=== PATIENT | female | born 2000 | race Caucasian/White ===

== ENCOUNTER 2021-08-28 15:14 | Emergency (ER) | payer BC, SELFPAY ==
--- NOTE | ~2021-08-28 | US_ITS ---
EXAMINATION: US ABDOMEN LIMITED, graded compression right lower quadrant CLINICAL INFORMATION: Right upper quadrant tenderness. COMPARISON: None TECHNIQUE: Real-time imaging of the right upper quadrant abdominal viscera. FINDINGS: Region of the pancreas is unremarkable. The liver is felt to be within normal limits. Gallbladder showing no evidence for stone or edema. Common duct is 4 mm within normal limits. The right kidney is 11.4 cm. No hydronephrosis. No stone. Graded compression of the right lower quadrant demonstrates no free fluid. No finding to suggest a normal or abnormal appendix. US/US abdomen limited IMPRESSION: Unremarkable upper abdominal ultrasound. Graded compression of the right lower quadrant does not show a suspicious finding.
--- NOTE | ~2021-08-28 | US_ITS ---
EXAMINATION: US ABDOMEN LIMITED CLINICAL INFORMATION: Right lower quadrant/periumbilical pain. COMPARISON: Abdominal ultrasound from the same day. TECHNIQUE: Imaging of the abdomen was performed with a high-frequency linear transducer using graded compression. FINDINGS: The appendix is not demonstrated due to overlying gas and stool. No inflammatory changes are identified in the right lower quadrant. There is no free fluid. Bowel peristalsis is identified. Right ovary is not seen. US/US appendix IMPRESSION: Evaluation of the appendix is non-diagnostic due to overlying gas and stool. No inflammatory changes identified in the right lower quadrant.
[2021-08-28 15:44] VITALS: BP 160/102; PULSE 117; RESP 20; TEMP 36.8; O2SAT 99; BMI 21.9
[2021-08-28 16:00] LABS: MANUAL DIFF FLAG NO
[2021-08-28 16:03] LABS: Basophils Percent Auto 0.3 % (0-2); Eosinophils Percent Auto 0.3 % (0-4); Hematocrit 40.3 % (37.0-47.0); Hemoglobin 13.5 g/dl (12.0-16.0); Imm Gran Abs Auto 0.01 X10*3/uL (0.00-0.03); Imm Gran Pct Auto 0.2 % (0.0-0.4); Lymphocytes Absolute Auto 1.8 X10*3/uL (1.2-4.9); Mean Corpuscular HGB Conc 33.5 g/dl (31.0-35.0); Mean Corpuscular Hemoglobin 30.4 pg (27.0-33.0); Mean Corpuscular Volume 90.8 fL (80.0-98.0); Mean Platelet Volume 9.9 fL (9.4-12.3); Monocytes Absolute Auto 0.5 X10*3/uL (0.1-1.2); Monocytes Percent Auto 7.6 % (2-11); Neutrophils Absolute Auto 3.6 x10*3/uL (2.0-8.3); Neutrophils Percent Auto 60.6 % (45-73); Platelet Count 197 X10*3/uL (160-400); Red Blood Count 4.44 X10*6/uL (4.20-5.50); Red Cell Distribution Width 12.2 % (11.0-16.0); White Blood Count 5.9 X10*3/uL (4.8-10.8)
[2021-08-28 16:16] LABS: Anion Gap 12 (12-20); Blood Urea Nitrogen 15 mg/dL (9-16); Calcium 9.6 mg/dL (8.4-10.2); Carbon Dioxide 25 mmol/L (22-29); Chloride 106 mmol/L (96-108); Creatinine Clr Calc Pharmacy 85.7; Estimated Glomerular Filt Rate > 60; Glucose Random 90 mg/dL (60-115); Potassium 3.8 mmol/L (3.3-5.1); Sodium 139 mmol/L (135-145)
[2021-08-28 19:20] LABS: Lipase 34 U/L (8-78)
--- NOTE | 2021-08-28 20:16 | ED_ITS ---
HPI - Abdominal Pain General Chief Complaint: Abdominal Pain Stated Complaint: abd pain Time Seen by Provider: 08/28/21 20:15 Source: patient Mode of arrival: ambulatory Limitations: no limitations History of Present Illness HPI narrative: 21 yo female with history of cystic fibrosis presents to the ER with acute onset of sharp, right lower and periumbical abdominal pain that woke her out of sleep at 4am today. She felt feverish at the time. Over time the pain improved but never completely subsided. Pain is now 4/10 and dull in the RUQ. No nausea, vomiting or diarrhea. Last BM today and was normal. LMP was last week and heavy, normal for her. MD elicited complaint: abdominal pain Pertinent past history: none Onset (ago): hour(s) Pain Consistency: constant Location: RLQ Severity: moderate Quality: sharp Migration to: periumbilical and RUQ Exacerbating factors: nothing Relieving factors: nothing Related Data Allergies Allergy/AdvReac Type Severity Reaction Status Date / Time amoxicillin Allergy Unknown stomach Verified 03/21/19 00:00 ache Review of Systems Review of Systems Constitutional: No Fever, No Chills ENT/Mouth: No sore throat, No Rhinorrhea, No Swallowing Difficulty Cardiovascular: No Chest Pain, No SOB Respiratory: No Cough, No Sputum, No Wheezing, No dyspnea Gastrointestinal: No Nausea, No Vomiting, No Diarrhea, + abdominal Pain, No Hematochezia, No Melena Genitourinary: No Dysuria, No Urinary Frequency, No Hematuria Musculoskeletal: No joint pain, No Myalgias Skin: No Skin Lesions, No rash Neuro: No Weakness, No Numbness, No Dizziness, No Headache Psych: + Anxiety/Panic, No Depression Heme/Lymph: No Bruising, No Lymphadenopathy PMFSH Social History Social History Advance Directives: No Advance Directives Information Provided: Yes Physical Exam ED Vital Signs: Vital Signs - 24 hr 08/28/21 15:44 08/28/21 20:20 08/28/21 22:28 Temperature 98.2 F 98.3 F 98.1 F Pulse Rate 117 H 118 H 82 Respiratory Rate 20 20 15 Blood Pressure 160/102 H 141/83 H 140/93 H Pulse Oximetry 99 100 98 BMI result Body Mass Index 21.9 Appearance: Alert. Oriented X3. No acute distress. Eyes: Pupils equal, round and reactive to light. ENT: Pharynx normal. Neck: Normal inspection. Neck supple. CVS: Normal heart rate and rhythm. Pulses normal. Respiratory: No respiratory distress. Breath sounds normal. Abdomen: Flat, Soft but guarded in the RUQ, no RLQ tenderness or rebound. normal +BS x4 Skin: Skin warm and dry. Normal skin color. Normal skin turgor. No rashes. Extremities: No lower extremity edema. Neuro: Oriented X 3. No motor deficit. No sensory deficit. Course Course Course Narrative: 21 yo female with history of CF presenting to the ER with right sided abdominal pain - started in the RLQ and periumbiliucal area and is now RUQ. No N/V/D. No history of pancreatic insufficiency, not on Creon. Will add LFTs and check ultrasounds of the RUQ and appendix. She has no leukocytosis which is reassuring against appendicitis. Reevaluation(s) Reevaluation #1: LFTs are normal. Ultrasounds of the right upper quadrant and appendix are unremarkable. She still has some mild discomfort in the right upper quadrant, but it is mild and tolerable. She is tolerating p.o.. She is reassured with her normal workup today. Vital signs are now normal. She is stable for discharge home with plan to follow-up with her doctor his needed. She will return to the ER if symptoms worsen. MDM - Abdominal Pain Lab Data Result diagrams: 08/28/21 15:57 08/28/21 15:57 Labs: Lab Results 08/28/21 08/28/21 08/28/21 Range/Units 15:57 15:57 21:16 WBC 5.9 (4.8-10.8) X10*3/uL RBC 4.44 (4.20-5.50) X10*6/uL Hgb 13.5 (12.0-16.0) g/dl Hct 40.3 (37.0-47.0) % MCV 90.8 (80.0-98.0) fL MCH 30.4 (27.0-33.0) pg MCHC 33.5 (31.0-35.0) g/dl RDW 12.2 (11.0-16.0) % Plt Count 197 (160-400) X10*3/uL MPV 9.9 (9.4-12.3) fL Immature Gran % (Auto) 0.2 (0.0-0.4) % Neut % (Auto) 60.6 (45-73) % Lymph % (Auto) 31.0 (20-40) % Angelina % (Auto) 7.6 (2-11) % Eos % (Auto) 0.3 (0-4) % Baso % (Auto) 0.3 (0-2) % Lymph # (Auto) 1.8 (1.2-4.9) X10*3/uL Angelina # (Auto) 0.5 (0.1-1.2) X10*3/uL Eos # (Auto) 0.0 (0.0-0.4) X10*3/uL Baso # (Auto) 0.0 (0.0-0.2) X10*3/uL Abs Immat Gran (auto) 0.01 (0.00-0.03) X10*3/uL Absolute Neuts (auto) 3.6 (2.0-8.3) x10*3/uL Absolute Nucleated RBC 0.000 (0.0-0.012) X10*3/uL Nucleated RBC % (auto) 0.0 (0.0-0.2) /100WBC Sodium 139 (135-145) mmol/L Potassium 3.8 (3.3-5.1) mmol/L Chloride 106 (96-108) mmol/L Carbon Dioxide 25 (22-29) mmol/L Anion Gap 12 (12-20) BUN 15 (9-16) mg/dL Creatinine 1.01 (0.5-1.4) mg/dL Estim Creat Clear Calc 85.7 Estimated GFR > 60 Random Glucose 90 (60-115) mg/dL Calcium 9.6 (8.4-10.2) mg/dL Total Bilirubin 0.7 (0.0-1.0) mg/dL Direct Bilirubin 0.3 (0.0-0.5) mg/dL AST 16 (5-31) U/L ALT 14 (0-31) U/L Alkaline Phosphatase 48 (39-117) U/L Total Protein 7.6 (6.5-8.0) g/dL Albumin 4.7 (3.5-5.0) g/dL Lipase 34 (8-78) U/L Beta HCG, Quant < 2 mIU/mL Urine Color DK YELLOW Urine Appearance CLEAR Urine pH 6.0 (5.0-8.0) Ur Specific [place] 1.025 (1.005-1.025) Urine Protein NEG (NEG-TRACE) MG/DL Urine Glucose (UA) NEG (NEG) MG/DL Urine Ketones 40 (NEG) MG/DL Urine Blood NEG (NEG) Urine Nitrite NEG (NEG) Ur Leukocyte Esterase NEG (NEG) Urine Test (NEGATIVE) 08/28/21 Range/Units 21:16 WBC (4.8-10.8) X10*3/uL RBC (4.20-5.50) X10*6/uL Hgb (12.0-16.0) g/dl Hct (37.0-47.0) % MCV (80.0-98.0) fL MCH (27.0-33.0) pg MCHC (31.0-35.0) g/dl RDW (11.0-16.0) % Plt Count (160-400) X10*3/uL MPV (9.4-12.3) fL Immature Gran % (Auto) (0.0-0.4) % Neut % (Auto) (45-73) % Lymph % (Auto) (20-40) % Angelina % (Auto) (2-11) % Eos % (Auto) (0-4) % Baso % (Auto) (0-2) % Lymph # (Auto) (1.2-4.9) X10*3/uL Angelina # (Auto) (0.1-1.2) X10*3/uL Eos # (Auto) (0.0-0.4) X10*3/uL Baso # (Auto) (0.0-0.2) X10*3/uL Abs Immat Gran (auto) (0.00-0.03) X10*3/uL Absolute Neuts (auto) (2.0-8.3) x10*3/uL Absolute Nucleated RBC (0.0-0.012) X10*3/uL Nucleated RBC % (auto) (0.0-0.2) /100WBC Sodium (135-145) mmol/L Potassium (3.3-5.1) mmol/L Chloride (96-108) mmol/L Carbon Dioxide (22-29) mmol/L Anion Gap (12-20) BUN (9-16) mg/dL Creatinine (0.5-1.4) mg/dL Estim Creat Clear Calc Estimated GFR Random Glucose (60-115) mg/dL Calcium (8.4-10.2) mg/dL Total Bilirubin (0.0-1.0) mg/dL Direct Bilirubin (0.0-0.5) mg/dL AST (5-31) U/L ALT (0-31) U/L Alkaline Phosphatase (39-117) U/L Total Protein (6.5-8.0) g/dL Albumin (3.5-5.0) g/dL Lipase (8-78) U/L Beta HCG, Quant mIU/mL Urine Color Urine Appearance Urine pH (5.0-8.0) Ur Specific [place] (1.005-1.025) Urine Protein (NEG-TRACE) MG/DL Urine Glucose (UA) (NEG) MG/DL Urine Ketones (NEG) MG/DL Urine Blood (NEG) Urine Nitrite (NEG) Ur Leukocyte Esterase (NEG) Urine Test NEGATIVE (NEGATIVE) Discharge Plan Discharge Clinical Impression: Abdominal pain Patient Disposition: Home, Self-Care Instructions: Abdominal Pain (ED) Additional Instructions: You lab workup today was unremarkable. Your urine test was negative for infection and . Recommend rest and plenty of oral hydration. Stick to a bland diet like soup and toast while you are not feeling well. Follow up with your doctor as needed. If you develop new or worsening symptoms call 911 or come back to the ER for further evaluation.
[2021-08-28 20:20] VITALS: BP 141/83; PULSE 118; RESP 20; TEMP 36.8; O2SAT 100
[2021-08-28 20:40] LABS: HCG Quantitative < 2 mIU/mL
[2021-08-28 20:56] LABS: Alanine Aminotransferase 14 U/L (0-31); Albumin Level 4.7 g/dL (3.5-5.0); Alkaline Phosphatase 48 U/L (39-117); Aspartate Amino Transferase 16 U/L (5-31); Bilirubin Direct 0.3 mg/dL (0.0-0.5); Bilirubin Total 0.7 mg/dL (0.0-1.0); Total Protein 7.6 g/dL (6.5-8.0)
[2021-08-28 21:30] LABS: UPreg QC Valid YES; Urine Pregnancy NEGATIVE (NEGATIVE)
[2021-08-28 21:37] LABS: Appearance Urine CLEAR; Color Urine DK YELLOW; Glucose Urine UA NEG (NEG); Leukocyte Esterase Urine NEG (NEG); Nitrite Urine NEG (NEG); Specific Gravity - Urine 1.025 (1.005-1.025); Urine Blood NEG (NEG); Urine Ketones 40 MG/DL (NEG); Urine Protein NEG (NEG-TRACE)
[2021-08-28 22:28] VITALS: BP 140/93; PULSE 82; RESP 15; TEMP 36.7; O2SAT 98
== END 2021-08-28 22:46 | disposition home or self-care (01) ==
PROVIDERS: Physician Assistant; Emergency Provider Internal Medicine; PCP Internal Medicine
DX: R10.31 Right lower quadrant pain (principal); R10.11 Right upper quadrant pain; Z79.899 Other long term (current) drug therapy
CPT/HCPCS: 36415; 76705; 80048; 80076; 81003; 81025; 83690; 84702; 85025; 99283; 99284

== ENCOUNTER 2023-12-24 09:28 | Emergency (ER) | payer BC, SELFPAY ==
[2023-12-24] VITALS (7 sets, daily range): BP systolic 125–171; BP diastolic 68–87; PULSE 86–108; RESP 17–20; TEMP 36.6–37.2; O2SAT 97–100; BMI 22.0
--- NOTE | ~2023-12-24 | CT_ITS ---
EXAMINATION: CT CHEST WITH CONTRAST CLINICAL INFORMATION: Shortness of breath which is not improving with history of cystic fibrosis COMPARISON: Chest radiograph 06/29/2018 TECHNIQUE: Multidetector volumetric CT imaging of the chest was obtained after the administration of 65 mL of Omnipaque 350 intravenous contrast without immediate adverse reactions. Axial MIP volume rendering provided. Sagittal and coronal reformatted images were obtained. This CT examination was performed using dose optimization techniques as appropriate, variously including the following: *Automated exposure control *Adjustment of mA and/or kV according to patient size (this includes techniques or standardized protocols for targeted exams where dose is matched to indication/reason for exam; i.e. extremities or head) *Use of iterative reconstruction technique DLP: 199 mGy-cm FINDINGS: STRUCTURAL TECHNICIAN: Unremarkable LUNGS: There is mild bronchial thickening. No emphysematous changes are seen. Small amount of mucus is present in the right mainstem bronchus. No concerning lung nodule is seen. There is a triangular anette fissural 4 mm lymph node in the superior segment of the right lower lobe along the major fissure (5:142) . The lungs are otherwise clear with no evidence of inflammation or nodules. MEDIASTINUM: The mediastinum is normal. PLEURA: There is no pleural effusion. No pleural mass or thickening. AXILLA: No lymphadenopathy. UPPER ABDOMEN: The spleen is enlarged measuring 12.6 cm. I suspect the liver is enlarged as well but is not completely included on this study. OSSEOUS STRUCTURES: Unremarkable. CT/CT chest w IV con IMPRESSION: 1. Mild bronchial thickening. No emphysematous changes are seen. 2. Incidental note made of mild splenomegaly and probable hepatomegaly. 3. Incidentally noted 4 mm anette fissural lymph node right lower lobe. Fleischner guidelines were followed. Electronically signed by: Jay Medina MD 12/24/2023 01:33 PM EDT
--- NOTE | 2023-12-24 09:47 | ED.GENADULT ---
HPI - General Adult General Chief complaint: Upper Respiratory Symptoms Stated complaint: fever-vomiting Time Seen by Provider: 12/24/23 09:47 Source: patient Mode of arrival: ambulatory Limitations: no limitations History of Present Illness ED Provider: Hollie SUAREZ HPI narrative: This is a 23-year-old female history of cystic fibrosis presents to the emergency department with concerns of fatigue, malaise, myalgias, head pressure, congestion, intermittent dry cough, decreased appetite, fevers, chills for the past month. Patient reports that she recently finished a Z-Derek, about 5 days ago with little to no relief. She reports that she had a similar episode in September, they gave her a Z-Derek and prednisone with little to no really. Patient denies any sick contacts. She denies headache, vision changes, dizziness, neck pain, nausea, vomiting, abdominal pain, chest pain or shortness of breath. Related Data Previous Rx's ?Medication ?Instructions ?Recorded doxycycline hyclate 100 mg capsule 100 mg PO BID 7 days #14 caps 12/24/23 prednisone 20 mg tablet 40 mg (2 x 20 mg) PO DAILY 5 days 12/24/23 #10 tabs Allergies Allergy/AdvReac Type Severity Reaction Status Date / Time amoxicillin Allergy Unknown stomach Verified 12/24/23 09:39 ache cephalexin [From Keflex] AdvReac Stomach Verified 12/24/23 09:39 Upset Review of Systems Review of Systems: Yes all other systems are reviewed and are negative [facility] Past Medical History Attestation statement: The following information was validated with the patient. Source: old records reviewed and nursing notes reviewed Social History Social History Smoked in Last 30 Days: No Use of substances other than those prescribed or required for medical reasons: No Advance Directives: No Advance Directives Information Provided: No Do you have a plan to hurt others: No Plan Patient : No Physical Exam ED Vital Signs: Vital Signs - 24 hr 12/24/23 09:35 12/24/23 10:11 12/24/23 10:17 Temperature 98.9 F 98.4 F Pulse Rate 108 H 96 Respiratory Rate 18 19 Blood Pressure 171/87 H Pulse Oximetry 100 97 Oxygen Delivery Method Room Air Room Air Room Air 12/24/23 10:44 12/24/23 11:11 12/24/23 12:36 Temperature 98.6 F 98.2 F Pulse Rate 95 101 H 98 Respiratory Rate 19 20 17 Blood Pressure 125/68 126/78 Pulse Oximetry 100 98 Oxygen Delivery Method Room Air Room Air 12/24/23 13:41 Temperature 97.9 F Pulse Rate 86 Respiratory Rate 17 Blood Pressure 125/75 Pulse Oximetry 97 Oxygen Delivery Method Room Air BMI result Body Mass Index 22.0 vss Appearance: Alert.? Oriented X3.? No acute distress.? Head: Normocephalic, atraumatic, no step-offs or deformities Eyes: Pupils equal, round and reactive to light.? CVS: Normal heart rate and rhythm.? Pulses normal.? Respiratory: No respiratory distress.? Breath sounds normal.? Abdomen: Soft and nontender.? Skin: Skin warm and dry.? Normal skin color.? Normal skin turgor.? Extremities: No lower extremity edema.? No calf ttp. 5/5 strength to bilateral upper and lower extremities Neuro: Oriented X 3.? No motor deficit.? No sensory deficit. CN 2-12 intact Course Reevaluation(s) Reevaluation #1: CBC with leukocytosis 11, no left shift. Chemistry with no acute findings needing intervention. Normal lipase. Transaminases are elevated likely secondary to acute viral illness in the setting of mononucleosis. Lucas also increases alk-phos as seen on patient's labs. UA with positive blood, trace leukocytes and large volume epithelial cells 2+ bacteria however I suspect this is a contaminated sample patient does not have any UTI symptoms. Extended viral panel negative. Only mono positive. Due to patient's history CT of the chest was ordered showing mild bronchial thickening no emphysematous changes incidental note of mild splenomegaly and probable hepatomegaly, incidental note a 4 mm perifissural lymph node in the right lower lobe. Discussed this case with my attending due to patient's medical history length of symptoms will treat for prolonged sinusitis with doxycycline will not use an amoxicillin based antibiotic due to patient's allergies and due to the fact that patient has mononucleosis. Patient and mother informed on this and they verbalized understanding of plan. Lyme testing still pending. Will be called if test are positive. Educated patient on diagnosis and treatment plan, answered all question, patient verbalizes understanding. At this time patient will be discharged home, advised to return with new or worsening symptoms. Educated on worrisome signs and symptoms and when to return. At this time I feel comfortable discharge home. Time: 14:11 Medications Administered Discontinued Medications Generic Name Dose Route Start Last Admin Trade Name King PRN Reason Stop Dose Admin Albuterol/Ipratropium 3 ml 12/24/23 09:58 12/24/23 10:42 Albuterol/Iprat 2.5/0.5mg 3 Ml Ampul.Neb INHALE 12/24/23 09:59 3 ml ONCE ONE Administration Magnesium Sulfate 2 gm in 50 mls @ 25 mls/hr 12/24/23 09:58 12/24/23 12:08 Magnesium Sulfate/H2o IV 12/24/23 11:57 Infused ONCE ONE Infusion Iohexol 100 ml 12/24/23 11:36 12/24/23 11:36 Iohexol 350 Mg/Ml 100 Ml Infus..Btl IV 12/24/23 11:37 65 ml ONCE ONE Administration Methylprednisolone Sodium Succinate 125 mg 12/24/23 09:58 12/24/23 10:17 Methylprednisolone Sod Succ 125 Mg/2 Ml Vial IVPUSH 12/24/23 09:59 125 mg ONCE ONE Administration Medical Decision Making Medical Decision Making [facility] Narrative: 0949 23-year-old female history of cystic fibrosis presents to the emergency department with upper respiratory symptoms/sinus like symptoms for the past month not resolving despite antibiotics recently. Physical exam benign. History and physical exam concerning for recurrent sinusitis versus bronchitis versus viral illness versus mononucleosis. Unlikely necrotizing infection, systemic illness, metabolic derangements, urinary infection. Plan labs, chest x-ray, urine Differential Diagnosis Differential Diagnoses: The differential diagnosis associated with the presentation includes History and physical exam concerning for recurrent sinusitis versus bronchitis versus viral illness versus mononucleosis. Unlikely necrotizing infection, systemic illness, metabolic derangements, urinary infection. Admission/Observation Consideration of admission/observation: Escalation of care including admission/observation considered possible Lab Data [facility] Lab Attestation statement: I reviewed the patient's lab results. 12/24/23 10:10 12/24/23 10:10 Labs: Lab Results 12/24/23 12/24/23 Range/Units 10:10 10:33 WBC 11.0 H (4.8-10.8) X10*3/uL RBC 4.55 (4.20-5.50) X10*6/uL Hgb 14.1 (12.0-16.0) g/dl Hct 41.4 (37.0-47.0) % MCV 91.0 (80.0-98.0) fL MCH 31.0 (27.0-33.0) pg MCHC 34.1 (31.0-35.0) g/dl RDW 13.5 (11.0-16.0) % Plt Count 150 L (160-400) X10*3/uL MPV 9.8 (9.4-12.3) fL Immature Gran % (Auto) Cancelled Neut % (Auto) Cancelled Lymph % (Auto) Cancelled Lucas % (Auto) Cancelled Eos % (Auto) Cancelled Baso % (Auto) Cancelled Lymph # (Auto) Cancelled Lucas # (Auto) Cancelled Eos # (Auto) Cancelled Baso # (Auto) Cancelled Abs Immat Gran (auto) Cancelled Absolute Neuts (auto) Cancelled Absolute Nucleated RBC 0.000 (0.0-0.012) X10*3/uL Nucleated RBC % (auto) 0.0 (0.0-0.2) /100WBC Neutrophils % (Manual) 37 L (45-73) % Band Neutrophils % 2 L (3-5) % Lymphocytes % (Manual) 38 (20-40) % Atypical Lymphs % (Man) 15 H (0-6) % Monocytes % (Manual) 7 (2-11) % Eosinophils % (Manual) 1 (0-4) % Abs Neuts (Manual) 4.3 (2.0-8.3) X10*3/uL Lymphocytes # (Manual) 4.2 (1.2-4.9) X10*3/uL Atyp Lymphs # (Manual) 1.7 x10*3/uL Monocytes # (Manual) 0.8 (0.1-1.2) X10*3/uL Eosinophils # (Manual) 0.1 (0.0-0.4) X10*3/uL Platelet Estimate NORMAL (NORMAL) Plt Morphology Comment NORMAL RBC Morphology NORMAL Sodium 140 (135-145) mmol/L Potassium 3.9 (3.3-5.1) mmol/L Chloride 105 (96-108) mmol/L Carbon Dioxide 25 (22-29) mmol/L Anion Gap 14 (12-20) BUN 14 (9-16) mg/dL Creatinine 0.88 (0.5-1.4) mg/dL Estim Creat Clear Calc 93.1 Estimated GFR > 60 Random Glucose 85 (60-115) mg/dL Calcium 9.2 (8.4-10.2) mg/dL Magnesium 2.3 (1.6-2.6) mg/dL Total Bilirubin 0.6 (0.0-1.0) mg/dL AST 166 H (5-31) U/L ALT 318 H (0-31) U/L Alkaline Phosphatase 267 H (39-117) U/L Total Protein 7.7 (6.5-8.0) g/dL Albumin 4.0 (3.5-5.0) g/dL Lipase 60 (8-78) U/L Urine Color Dark Yellow Urine Appearance Cloudy Urine pH 5.5 (5.0-9.0) Ur Specific [place] 1.025 (1.005-1.025) Urine Protein 30 (1+) H (Neg-Trace) mg/dL Urine Glucose (UA) Negative (Negative) mg/dL Urine Ketones 15 (Negative) mg/dL Urine Blood Moderate (2+) H (Negative) Urine Nitrite Negative (Negative) Ur Leukocyte Esterase Trace H (Negative) Urine RBC 6-10 H (0-2) /HPF Urine WBC 0-5 (0-5) /HPF Ur Squamous Epith Cells >20 (0-2) /HPF Urine Bacteria 2+ (None Seen) Hyaline Casts 3-5 (0-2) /LPF Urine Test NEGATIVE (NEGATIVE) Respiratory Panel [place] See Note Adenovirus (Rapid PCR) Not Detected (Not Detect.) B.pert (TEM-PCR) Not Detected (Not Detect.) B.parapertussis DNA PCR Not Detected (Not Detect.) C. pneumoniae DNA (PCR) Not Detected (Not Detect.) Coronavirus OC43 (PCR) Not Detected (Not Detect.) Coronavirus HKU1 (PCR) Not Detected (Not Detect.) Coronavirus 229E (PCR) Not Detected (Not Detect.) Coronavirus NL63 (PCR) Not Detected (Not Detect.) Monoscreen Positive A (Negative) Human Metapneumovir PCR Not Detected (Not Detect.) Influenza A (RT-PCR) Not Detected (Not Detect.) Influenza B (RT-PCR) Not Detected (Not Detect.) M. pneumoniae (PCR) Not Detected (Not Detect.) Parainfluenza 1 (PCR) Not Detected (Not Detect.) Parainfluenza 2 (PCR) Not Detected (Not Detect.) Parainfluenza 3 (PCR) Not Detected (Not Detect.) Parainfluenza 4 (PCR) Not Detected (Not Detect.) RSV (PCR) Not Detected (Not Detect.) Entero/Rhino (PCR) Not Detected (Not Detect.) SARS-CoV-2 RNA (RT-PCR) Not Detected (Not Detect.) Independent Interpretation I performed an independent interpretation of an: Plain X-Ray Radiology Impression Discussion of test interpretation with radiology: I have reviewed the radiologist's reading. External Record Review External record reviewed: Outpatient record Chronic Conditions Patient?s care impacted by: Other (Cystic fibrosis ) Critical Care Time Critical Care Time Critical Care Time: No Discharge Plan Discharge Clinical Impression: Mononucleosis, Sinusitis Patient Disposition: Home, Self-Care Instructions: Upper Respiratory Infection (ED), Viral Syndrome (ED) Additional Instructions: Take your medications as prescribed. If you were prescribed antibiotics today, it is important that you take your medication to their entirety, do not skip any doses, do not finish them early. Follow-up with your primary care provider this week. Return to the emergency department with new or worsening symptoms. Such as fevers, chills, chest pain, shortness of breath, nausea, vomiting, dizziness, headache, vision changes, lethargy In case of emergency call [address] CT/CT chest w IV con IMPRESSION: 1. Mild bronchial thickening. No emphysematous changes are seen. 2. Incidental note made of mild splenomegaly and probable hepatomegaly. 3. Incidentally noted 4 mm anette fissural lymph node right lower lobe. Prescriptions: New doxycycline hyclate 100 mg capsule 100 mg PO BID 7 Days Qty: 14 0RF prednisone 20 mg tablet 40 mg PO DAILY 5 Days Qty: 10 0RF Referrals: Eliazar Dorsey MD [Primary Care Provider] - 2 days Stand Alone Forms: Work/School Release Print Language: Portuguese
[2023-12-24 10:17] LABS: Hematocrit 41.4 % (37.0-47.0); Hemoglobin 14.1 g/dl (12.0-16.0); Mean Corpuscular HGB Conc 34.1 g/dl (31.0-35.0); Mean Platelet Volume 9.8 fL (9.4-12.3); Platelet Count 150 X10*3/uL (160-400); Red Blood Count 4.55 X10*6/uL (4.20-5.50); Red Cell Distribution Width 13.5 % (11.0-16.0)
[2023-12-24] MEDS: methylPREDNISolone Sod Succ 125 MG/2 ML VIAL IVPUSH (10:17)
[2023-12-24] MEDS: Magnesium Sulfate/H2O 2 GM/50 ML PIGGYBACK IV (10:17)
[2023-12-24 10:18] LABS: Appearance Urine Cloudy; Color Urine Dark Yellow; Glucose Urine UA Negative (Negative); Leukocyte Esterase Urine Trace (Negative); Nitrite Urine Negative (Negative); PH 5.5 (5.0-9.0); Specific Gravity - Urine 1.025 (1.005-1.025); UMIC TRIGGER UACC YES; Urine Blood Moderate (2+) (Negative); Urine Ketones 15 mg/dL (Negative); Urine Protein 30 (1+) mg/dL (Neg-Trace)
[2023-12-24 10:21] LABS: Bacteria Urine 2+ (None Seen); Squamous Epithelial Cell Urine >20 /HPF (0-2); WBC Urine 0-5 /HPF (0-5)
[2023-12-24 10:23] LABS: UPreg QC Valid YES; Urine Pregnancy NEGATIVE (NEGATIVE)
[2023-12-24 10:32] LABS: Monotest Positive (Negative)
[2023-12-24 10:33] LABS: Alanine Aminotransferase 318 U/L (0-31); Alkaline Phosphatase 267 U/L (39-117); Anion Gap 14 (12-20); Aspartate Amino Transferase 166 U/L (5-31); Bilirubin Total 0.6 mg/dL (0.0-1.0); Blood Urea Nitrogen 14 mg/dL (9-16); Calcium 9.2 mg/dL (8.4-10.2); Carbon Dioxide 25 mmol/L (22-29); Chloride 105 mmol/L (96-108); Creatinine Clr Calc Pharmacy 93.1; Estimated Glomerular Filt Rate > 60; Glucose Random 85 mg/dL (60-115); Lipase 60 U/L (8-78); Magnesium 2.3 mg/dL (1.6-2.6); Potassium 3.9 mmol/L (3.3-5.1); Sodium 140 mmol/L (135-145); Total Protein 7.7 g/dL (6.5-8.0)
[2023-12-24] MEDS: Albuterol/Iprat 2.5/0.5MG 3 ML AMPUL.NEB INHALE (10:42)
[2023-12-24 10:58] LABS: Atypical Lymph Absolute Manual 1.7 x10*3/uL; Atypical Lymphs Percent Manual 15 % (0-6); Band Neutrophils Percent 2 % (3-5); Eosinophils Absolute Manual 0.1 X10*3/uL (0.0-0.4); Eosinophils Percent Manual 1 % (0-4); Lymphocytes Absolute Manual 4.2 X10*3/uL (1.2-4.9); Lymphocytes Percent Manual 38 % (20-40); Monocytes Absolute Manual 0.8 X10*3/uL (0.1-1.2); Monocytes Percent Manual 7 % (2-11); Neutrophils Absolute Manual 4.3 X10*3/uL (2.0-8.3); Neutrophils Percent Manual 37 % (45-73)
[2023-12-24 11:00] LABS: Platelet Estimate NORMAL (NORMAL); Platelet Morphology Comment NORMAL; RBC Morphology NORMAL
[2023-12-24] MEDS: iohexoL 350 MG/ML 100 ML INFUS..BTL IV (11:36)
[2023-12-24 12:29] LABS: Adenovirus PCR Not Detected (Not Detect.); Bordetella parapertussis PCR Not Detected (Not Detect.); Bordetella pertussis PCR Not Detected (Not Detect.); Chlamydia pneumoniae PCR Not Detected (Not Detect.); Coronavirus 229E PCR Not Detected (Not Detect.); Coronavirus HKU1 PCR Not Detected (Not Detect.); Coronavirus NL63 PCR Not Detected (Not Detect.); Coronavirus OC43 PCR Not Detected (Not Detect.); Human metapneumovirus PCR Not Detected (Not Detect.); Influenza A PCR Not Detected (Not Detect.); Influenza B PCR Not Detected (Not Detect.); Mycoplasma pneumoniae PCR Not Detected (Not Detect.); Parainfluenza 1 PCR Not Detected (Not Detect.); Parainfluenza 2 PCR Not Detected (Not Detect.); Parainfluenza 3 PCR Not Detected (Not Detect.); Parainfluenza 4 PCR Not Detected (Not Detect.); RSV PCR Not Detected (Not Detect.); Rhino/Enterovirus PCR Not Detected (Not Detect.)
[2023-12-24 12:44] LABS: SARS-CoV-2 PCR Not Detected (Not Detect.)
[2023-12-25 16:47] LABS: Lyme Abs Screen <0.90 index
== END 2023-12-24 14:33 | disposition home or self-care (01) ==
PROVIDERS: Physician Assistant; Emergency Provider Emergency Medicine; PCP Internal Medicine
DX: B27.99 Infectious mononucleosis, unspecified with other complication (principal); J32.9 Chronic sinusitis, unspecified; E84.9 Cystic fibrosis, unspecified
CPT/HCPCS: 36415; 71260; 80053; 81001; 81025; 83690; 83735; 85007; 85027; 86308; 86617; 86618; 87633; 94640; 96365; 96366; 96375; 99284; 99285; J2919; J3475; Q9967

== ENCOUNTER 2024-01-01 09:22 | Emergency (ER) | payer BC, SELFPAY ==
--- NOTE | ~2024-01-01 | XR_ITS ---
EXAMINATION: XR CHEST CLINICAL INFORMATION: Chest congestion, cough, history of CF COMPARISON: Chest CT on 12/24/2023 TECHNIQUE: 2 views of the chest were obtained. FINDINGS: No significant abnormality is noted involving the heart, lungs, mediastinum, bony thorax or soft tissues. XR/XR chest 2V IMPRESSION: Unremarkable examination. Electronically signed by: Jolly Vega MD 01/01/2024 12:38 PM EDT
[2024-01-01 09:30] VITALS: BP 128/86; PULSE 98; RESP 16; TEMP 36.7; O2SAT 99; BMI 20.4
--- NOTE | 2024-01-01 09:43 | ECG_ITS ---
Test Reason : PRE- SYNCOPE Blood Pressure : / mmHG Vent. Rate : 079 BPM Atrial Rate : 079 BPM P-R Int : 158 ms QRS Dur : 080 ms QT Int : 346 ms P-R-T Axes : 044 076 039 degrees QTc Int : 396 ms Normal sinus rhythm with sinus arrhythmia Normal ECG No previous ECGs available Referred By: Tashia Zaragoza Electronically Signed By:MONIKA ALCARAZ
--- NOTE | 2024-01-01 09:45 | ED.GENADULT ---
HPI - General Adult General Chief complaint: General Medical Stated complaint: Meade for 1 month Time Seen by Provider: 01/01/24 09:42 Source: patient, RN notes reviewed and old records reviewed Mode of arrival: ambulatory Limitations: no limitations History of Present Illness ED Provider: Deisy Zaragoza PA-C HPI narrative: 23-year-old female with history of cystic fibrosis, recently diagnosed mononucleosis on December 23 who presents back to the ER for ongoing worsening symptoms. She was discharged with course of doxycycline and prednisone. She reports dizziness and feeling like she is going to pass out yesterday when she was walking to the bathroom including tunnel vision and extreme lightheadedness. She has been sick for almost 1 month with fatigue, chest congestion, cough and intermittent low grade fevers. The last few days she developed right-sided ear pain, right hearing loss. No drainage from the ear. She denies any pain behind the ear. She has had intermittent low-grade fevers and extreme fatigue. She also reports chest congestion, unable to get out the phlegm. She has been using her Acapella valve. She follows with the [facility] in [place] through [facility]. She is reporting some intermittent right-sided abdominal pain and fullness but no pain on the left side. MD complaint: Right ear pain, presyncope Onset (ago): week(s) Location: head, face, chest and abdomen Radiation: non-radiation Relieving factors: none Exacerbating factors: none Associated symptoms: fever/chills, loss of appetite, malaise, nausea/vomiting, weakness and other (Chest congestion) Treatments prior to arrival: none Related Data Previous Rx's ?Medication ?Instructions ?Recorded doxycycline hyclate 100 mg capsule 100 mg PO BID 7 days #14 caps 12/24/23 prednisone 20 mg tablet 40 mg (2 x 20 mg) PO DAILY 5 days 12/24/23 #10 tabs levofloxacin 500 mg tablet 500 mg PO DAILY #5 tabs 01/01/24 Allergies Allergy/AdvReac Type Severity Reaction Status Date / Time amoxicillin Allergy Unknown stomach Verified 01/01/24 09:34 ache cephalexin [From Keflex] AdvReac Stomach Verified 01/01/24 09:34 Upset PMFSH Social History Social History Advance Directives: Yes Advance Directives Information Provided: Yes Advance Directives on File: No Physical Exam ED Vital Signs: Vital Signs - 24 hr 01/01/24 09:30 01/01/24 10:00 01/01/24 10:07 Temperature 98.1 F 98.5 F Pulse Rate 98 91 84 Respiratory Rate 16 17 Blood Pressure 128/86 119/81 117/75 Pulse Oximetry 99 99 Oxygen Delivery Method Room Air Room Air 01/01/24 10:08 01/01/24 10:12 01/01/24 11:42 Temperature 98.4 F Pulse Rate 98 91 91 Respiratory Rate 16 Blood Pressure 125/76 119/81 119/81 Pulse Oximetry 98 Oxygen Delivery Method Room Air BMI result Body Mass Index 20.4 Appearance: Alert. Oriented X3. No acute distress. Head: normocephalic, atraumatic. Eyes: Pupils equal, round and reactive to light. ENT: Pharynx normal. No tonsillar swelling or exudate. Right TM with erythema and bulging, effusion visualized with no TM perforation. No mastoid tenderness. Left TM is normal with normal light reflex. Neck: Normal inspection. Neck supple. Cervical lymphadenopathy on the right CVS: Normal heart rate and rhythm. Pulses normal. Respiratory: No respiratory distress. Breath sounds normal. Abdomen: Soft and nontender. +BS x4. no HSM appreciated Skin: Skin warm and dry. Normal skin color. Normal skin turgor. No rashes. Extremities: No lower extremity edema. No joint swelling. Neuro/psych: Oriented X 3. No motor deficit. No sensory deficit. CN II-XII intact. Normal speech and cognition. Medications Administered Discontinued Medications Generic Name Dose Route Start Last Admin Trade Name Migule Angelq PRN Reason Stop Dose Admin Lactated Ringer's 1,000 mls @ 999 mls/hr 01/01/24 09:45 01/01/24 11:06 Lr IV 01/01/24 10:45 Infused .Q1H1M ASHLEY Infusion Levofloxacin 500 mg 01/01/24 11:12 01/01/24 11:22 Levofloxacin 500 Mg Tablet PO 01/01/24 11:13 500 mg ONCE ONE Administration Medical Decision Making Medical Decision Making MDM Narrative: 23-year-old female with history of CF and recently diagnosed mononucleosis who has been sick for 1 month with symptoms of mono presenting to the ER for evaluation of presyncope yesterday along with right ear pain and hearing loss. No drainage. Exam is consistent with acute otitis media. She completed a course of doxycycline yesterday. Will plan to start her on Levaquin for additional Pseudomonas coverage. This will also cover any respiratory pathogens with concern for possible pneumonia. Lab work today shows no leukocytosis. Her LFTs are improving. EKGs unremarkable troponin is negative. Orthostatic vital signs are negative. Chest x-ray reviewed, no evidence of pneumonia. At this time comfortable discharge home with oral antibiotics and supportive care. Stable for discharge home Differential Diagnosis Differential Diagnoses: The differential diagnosis associated with the presentation includes Complications of mono including possible myocarditis, arrhythmia, anemia, thrombocytopenia, encephalitis and Guillain-Clarkson less likely, low suspicion for splenic rupture Admission/Observation Consideration of admission/observation: Escalation of care including admission/observation considered Lab Data MDM Lab Attestation statement: I reviewed the patient's lab results. No leukocytosis, 01/01/24 09:55 01/01/24 09:55 Labs: Lab Results 01/01/24 01/01/24 01/01/24 Range/Units 09:53 09:55 10:26 WBC 8.8 (4.8-10.8) X10*3/uL RBC 4.45 (4.20-5.50) X10*6/uL Hgb 13.5 (12.0-16.0) g/dl Hct 39.7 (37.0-47.0) % MCV 89.2 (80.0-98.0) fL MCH 30.3 (27.0-33.0) pg MCHC 34.0 (31.0-35.0) g/dl RDW 13.1 (11.0-16.0) % Plt Count 164 (160-400) X10*3/uL MPV 9.4 (9.4-12.3) fL Immature Gran % (Auto) Cancelled Neut % (Auto) Cancelled Lymph % (Auto) Cancelled [place] % (Auto) Cancelled Eos % (Auto) Cancelled Baso % (Auto) Cancelled Lymph # (Auto) Cancelled [place] # (Auto) Cancelled Eos # (Auto) Cancelled Baso # (Auto) Cancelled Abs Immat Gran (auto) Cancelled Absolute Neuts (auto) Cancelled Absolute Nucleated RBC 0.000 (0.0-0.012) X10*3/uL Nucleated RBC % (auto) 0.0 (0.0-0.2) /100WBC Neutrophils % (Manual) 25 L (45-73) % Band Neutrophils % 0 L (3-5) % Lymphocytes % (Manual) 51 H (20-40) % Atypical Lymphs % (Man) 17 H (0-6) % Monocytes % (Manual) 4 (2-11) % Eosinophils % (Manual) 1 (0-4) % Basophils % (Manual) 2 (0-2) % Abs Neuts (Manual) 2.2 (2.0-8.3) X10*3/uL Lymphocytes # (Manual) 4.5 (1.2-4.9) X10*3/uL Atyp Lymphs # (Manual) 1.5 x10*3/uL Monocytes # (Manual) 0.4 (0.1-1.2) X10*3/uL Eosinophils # (Manual) 0.1 (0.0-0.4) X10*3/uL Basophils # (Manual) 0.2 (0.0-0.2) X10*3/uL Platelet Estimate NORMAL (NORMAL) Plt Morphology Comment NORMAL RBC Morphology NORMAL Sodium 140 (135-145) mmol/L Potassium 3.9 (3.3-5.1) mmol/L Chloride 106 (96-108) mmol/L Carbon Dioxide 25 (22-29) mmol/L Anion Gap 13 (12-20) BUN 18 H (9-16) mg/dL Creatinine 0.80 (0.5-1.4) mg/dL Estim Creat Clear Calc 105.3 Estimated GFR > 60 Random Glucose 79 (60-115) mg/dL Calcium 8.7 (8.4-10.2) mg/dL Magnesium 2.2 (1.6-2.6) mg/dL Total Bilirubin 0.4 (0.0-1.0) mg/dL Direct Bilirubin 0.1 (0.0-0.5) mg/dL AST 26 (5-31) U/L ALT 67 H (0-31) U/L Alkaline Phosphatase 131 H (39-117) U/L Troponin I High Sens < 2.7 (<3.5-17.0) ng/L Total Protein 7.3 (6.5-8.0) g/dL Albumin 4.0 (3.5-5.0) g/dL Urine Color Dark Yellow Urine Appearance Clear Urine pH 6.0 (5.0-9.0) Ur Specific [place] 1.025 (1.005-1.025) Urine Protein Trace (Neg-Trace) mg/dL Urine Glucose (UA) Negative (Negative) mg/dL Urine Ketones Negative (Negative) mg/dL Urine Blood Negative (Negative) Urine Nitrite Negative (Negative) Ur Leukocyte Esterase Negative (Negative) Influenza Type A (PCR) NEGATIVE (Negative) Influenza Type B (PCR) NEGATIVE (Negative) RSV RNA Qual (PCR) NEGATIVE (Negative) SARS-CoV-2 RNA (RT-PCR) NEGATIVE (Negative) Independent Interpretation I performed an independent interpretation of an: EKG and Plain X-Ray Interpretation: Normal sinus rhythm, ventricular rate 79 beats per minute, no ST segment elevations or depressions. Normal QTC, normal CO interval Chest x-ray clear, no evidence of pneumo Radiology Impression Discussion of test interpretation with radiology: I have reviewed the radiologist's reading. Radiologist Impression: XR/XR chest 2V IMPRESSION: Unremarkable examination. Independent Historian Clinical information obtained from an independent historian. History obtained from or confirmed by: Parent External Record Review External record reviewed: Outpatient record, Prior outpatient labs and Prior outpatient radiology Prescription Management I considered prescription management with: Pain Medication and Antibiotic Chronic Conditions Patient?s care impacted by: Other (Cystic fibrosis) Critical Care Time Critical Care Time Critical Care Time: No Discharge Plan Discharge Clinical Impression: Acute otitis media Qualifiers: Otitis media type: unspecified Qualified Code(s): H66.90 - Otitis media, unspecified, unspecified ear Mononucleosis Qualifiers: Infectious mononucleosis etiology: unspecified organism Infectious mononucleosis complication: other complications Qualified Code(s): B27.99 - Infectious mononucleosis, unspecified with other complication Patient Disposition: Home, Self-Care Instructions: Ear Infection (ED) Additional Instructions: Your lab workup today was reassuring. Your chest x-ray was clear. Your EKG was normal. Your exam was consistent with an ear infection in the right side. Your given 1st dose of the oral antibiotics this morning. The next dose is due tomorrow morning. Complete the entire course and do not miss any doses. No heavy lifting or strenuous activity while your on Levaquin, it can cause tendon rupture, it is a rare complication. Rest and drink plenty of fluids. If you develop new or worsening symptoms call 911 or come back to the ER for further evaluation. Prescriptions: New levofloxacin 500 mg tablet 500 mg PO DAILY Qty: 5 0RF No Action doxycycline hyclate 100 mg capsule 100 mg PO BID 7 Days Qty: 14 0RF prednisone 20 mg tablet 40 mg PO DAILY 5 Days Qty: 10 0RF Interventions: ED Discharge Assessment Last Done: 01/01/24 11:42 Discharge Date/Time: 01/01/24 11:49 Print Language: Kazakh
[2024-01-01] MEDS: Lactated Ringers 1,000 ML 999 ML IV (09:58)
[2024-01-01 10:00] VITALS: BP 119/81; PULSE 91; RESP 17; TEMP 36.9; O2SAT 99
[2024-01-01 10:02] LABS: Hematocrit 39.7 % (37.0-47.0); Hemoglobin 13.5 g/dl (12.0-16.0); Mean Corpuscular Hemoglobin 30.3 pg (27.0-33.0); Mean Corpuscular Volume 89.2 fL (80.0-98.0); Mean Platelet Volume 9.4 fL (9.4-12.3); Platelet Count 164 X10*3/uL (160-400); Red Blood Count 4.45 X10*6/uL (4.20-5.50); Red Cell Distribution Width 13.1 % (11.0-16.0); White Blood Count 8.8 X10*3/uL (4.8-10.8)
[2024-01-01 10:07] VITALS: BP 117/75; PULSE 84
[2024-01-01 10:08] VITALS: BP 125/76; PULSE 98
[2024-01-01 10:12] VITALS: BP 119/81; PULSE 91
[2024-01-01 10:17] LABS: Alanine Aminotransferase 67 U/L (0-31); Alkaline Phosphatase 131 U/L (39-117); Anion Gap 13 (12-20); Aspartate Amino Transferase 26 U/L (5-31); Bilirubin Direct 0.1 mg/dL (0.0-0.5); Bilirubin Total 0.4 mg/dL (0.0-1.0); Blood Urea Nitrogen 18 mg/dL (9-16); Calcium 8.7 mg/dL (8.4-10.2); Carbon Dioxide 25 mmol/L (22-29); Chloride 106 mmol/L (96-108); Creatinine Clr Calc Pharmacy 105.3; Estimated Glomerular Filt Rate > 60; Glucose Random 79 mg/dL (60-115); Magnesium 2.2 mg/dL (1.6-2.6); Potassium 3.9 mmol/L (3.3-5.1); Sodium 140 mmol/L (135-145); Total Protein 7.3 g/dL (6.5-8.0)
[2024-01-01 10:25] LABS: Troponin-I High Sensitivity < 2.7 ng/L (<3.5-17.0)
[2024-01-01 10:33] LABS: Appearance Urine Clear; Color Urine Dark Yellow; Glucose Urine UA Negative (Negative); Leukocyte Esterase Urine Negative (Negative); Nitrite Urine Negative (Negative); Specific Gravity - Urine 1.025 (1.005-1.025); Urine Blood Negative (Negative); Urine Ketones Negative (Negative); Urine Protein Trace mg/dL (Neg-Trace)
[2024-01-01 10:34] LABS: Atypical Lymph Absolute Manual 1.5 x10*3/uL; Atypical Lymphs Percent Manual 17 % (0-6); Band Neutrophils Percent 0 % (3-5); Basophils Abs Manual 0.2 X10*3/uL (0.0-0.2); Basophils Percent Manual 2 % (0-2); Eosinophils Absolute Manual 0.1 X10*3/uL (0.0-0.4); Eosinophils Percent Manual 1 % (0-4); Lymphocytes Absolute Manual 4.5 X10*3/uL (1.2-4.9); Lymphocytes Percent Manual 51 % (20-40); Monocytes Absolute Manual 0.4 X10*3/uL (0.1-1.2); Monocytes Percent Manual 4 % (2-11); Neutrophils Absolute Manual 2.2 X10*3/uL (2.0-8.3); Neutrophils Percent Manual 25 % (45-73)
[2024-01-01 10:36] LABS: Platelet Estimate NORMAL (NORMAL); Platelet Morphology Comment NORMAL; RBC Morphology NORMAL
[2024-01-01 10:40] LABS: Influenza A PCR NEGATIVE (Negative); Influenza B PCR NEGATIVE (Negative); Resp Syncy Virus RNA Qual PCR NEGATIVE (Negative); SARS COV2 PCR INHOUSE NEGATIVE (Negative)
[2024-01-01] MEDS: levoFLOXacin 500 MG TABLET PO (11:22)
[2024-01-01 11:42] VITALS: BP 119/81; PULSE 91; RESP 16; TEMP 36.9; O2SAT 98
== END 2024-01-01 11:49 | disposition home or self-care (01) ==
PROVIDERS: Physician Assistant; Emergency Provider Emergency Medicine; PCP Internal Medicine
DX: R42 Dizziness and giddiness (principal); H66.90 Otitis media, unspecified, unspecified ear; B27.99 Infectious mononucleosis, unspecified with other complication; Z03.818 Encounter for observation for suspected exposure to other biological agents ruled out; R05.9 Cough, unspecified; Z79.2 Long term (current) use of antibiotics
CPT/HCPCS: 0241U; 36415; 71046; 80048; 80076; 81003; 83735; 84484; 85007; 85027; 93005; 96360; 99284; J7120

== ENCOUNTER 2024-03-26 10:12 | Emergency (ER) | payer BC, SELFPAY ==
[2024-03-26 10:18] VITALS: BP 144/88; PULSE 110; RESP 19; TEMP 36.9; O2SAT 100; BMI 21.7
--- NOTE | 2024-03-26 11:01 | ED.EAR ---
HPI - Ear Problem General Chief complaint: Ear Problems Stated complaint: r ear pain Time Seen by Provider: 03/26/24 10:45 Source: patient, RN notes reviewed and old records reviewed Mode of arrival: ambulatory Limitations: no limitations History of Present Illness ED Provider: QUIRINO JENSEN PA-C HPI Narrative: 24-year-old female with no significant past medical history presents to the ED today for evaluation of right ear pain x2 days. She states that she was seen at urgent care yesterday and prescribed an antibiotic ear drop to treat an outer ear infection. She states that she began using these drops yesterday however her pain has continued and worsened. Pain does not radiate. Denies any hearing changes, drainage from the ear, fever/chills, jaw pain, ear swelling, neck pain. Denies FB. Denies recent swimming. Denies recent flights. Related Data Previous Rx's ?Medication ?Instructions ?Recorded doxycycline hyclate 100 mg capsule 100 mg PO BID 7 days #14 caps 12/24/23 prednisone 20 mg tablet 40 mg (2 x 20 mg) PO DAILY 5 days 12/24/23 #10 tabs levofloxacin 500 mg tablet 500 mg PO DAILY #5 tabs 01/01/24 levofloxacin 500 mg tablet 500 mg PO DAILY 5 days #5 tabs 03/26/24 Allergies Allergy/AdvReac Type Severity Reaction Status Date / Time amoxicillin Allergy Unknown stomach Verified 03/26/24 10:20 ache cephalexin [From Keflex] AdvReac Stomach Verified 03/26/24 10:20 Upset Review of Systems Review of Systems: Constitutional: No fever, chills, fatigue, night sweats, weight changes ENT/Mouth: No hearing loss, nasal congestion, sinus pain, rhinorrhea, sore throat, +ear pain Eyes: No eye pain, swelling, redness, vision changes, discharge Cardio: No chest pain, palpitations, GUZMAN, orthopnea, peripheral edema Pulm: No SOB, cough, sputum, wheezing, dyspnea, hemoptysis GI: No nausea, vomiting, hematemesis, abdominal pain, diarrhea, constipation, hematochezia, melena : No irregular bleeding, dysuria, frequency, urgency, hesitancy, hematuria, flank pain, urinary flow changes, urinary incontinence or retention MSK: No back pain, neck pain, joint pain, myalgias Skin: No lesions, rashes Neuro: No weakness, numbness, paresthesias, LOC, dizziness, headache Psych: No anxiety/panic, depression, SI/HI, AH/VH All other systems reviewed and are negative. [facility] Past Medical History Attestation statement: The following information was validated with the patient. Source: old records reviewed and nursing notes reviewed Social History Social History Advance Directives: No Advance Directives Information Provided: No Do you have a plan to hurt others: No Plan Physical Exam Vital Signs: Vital Signs: Last Vital Signs Temp 98.4 F 03/26/24 10:18 Pulse 110 H 03/26/24 10:18 Resp 19 03/26/24 10:18 BP 144/88 H 03/26/24 10:18 Pulse Ox 100 03/26/24 10:18 O2 Del Method Room Air 03/26/24 10:18 BMI result Body Mass Index 21.7 Const: General: cooperative, healthy appearing, comfortable and no acute distress Orientation/consciousness: patient oriented x3 Limitations: no limitations HEENT: Other: + No pain on manipulation of left pinna or tragus. No mastoid tenderness. Left EAC without erythema, edema or discharge. TM intact without erythema, effusion, or bulging. + No pain on manipulation of right pinna or tragus. No mastoid tenderness. Right EAC without erythema, edema or discharge. TM erythematous, bulging with effusion. Intact. Head: Yes normal to inspection, Yes No palpable skull fracture present, Yes normocephalic and Yes atraumatic Ears: hearing grossly normal bilaterally Face and sinus: Yes normal facial exam and Yes sinuses nontender Eyes: General: appearance normal, both eyes and all related structures Pupils: Equal, round and reactive pupils present Neck: Neck: Yes normal visual inspection and Yes no lymphadenopathy Resp: Effort & Inspection: normal respiratory effort and able to speak in complete sentences Auscultation: clear to auscultation bilaterally Cardio: Rate: regular rate Rhythm: regular rhythm Skin: General skin exam: no rashes or lesions noted Neuro: General: patient oriented x3 and gait normal Cranial nerves: Yes Equal, round and reactive pupils present Course Course Course Narrative: Physical exam is consistent with otitis media. I did discuss this with patient. Will send levofloxacin to pharmacy for treatment. Advised to take tylenol/ motrin at home for pain/ discomfort. Patient has remained stable throughout ED visit today. Discussed worrisome signs and symptoms and when to return to the ED. All questions answered at this time. Patient is agreeable with disposition and stable for discharge. Medical Decision Making Medical Decision Making [facility] Narrative: 24-year-old female with no significant past medical history presents to the ED today for evaluation of right ear pain x2 days. Patient tachycardic, afebrile. She is nontoxic appearing and in NAD. Sitting on the exam bed comfortably. No pain on manipulation of right pinna or tragus. No mastoid tenderness. Right EAC without erythema, edema or discharge. TM erythematous, bulging with effusion. Intact. No cervical lymphadenopathy. Differential diagnosis includes otitis media, otitis externa. Unlikely mastoiditis, malignant otitis externa. Exam consistent with acute otitis media. Will send prescription for levofloxacin. Toradol given in ED for pain control. Differential Diagnosis Differential Diagnoses: The differential diagnosis associated with the presentation includes as above. Admission/Observation Not indicated External Record Review External record reviewed: Inpatient record Tests considered The following testing was considered but not selected: I considered obtaining imaging however no suspicion for deep tissue infection, not warranted at this time Prescription Management I considered prescription management with: Antibiotic (Levofloxacin) Social Determinants Patient?s care significantly limited by Social Determinants of Health including: Other Social Determinant of Health Critical Care Time Critical Care Time Critical Care Time: No Discharge Plan Discharge Clinical Impression: Acute right otitis media Patient Disposition: Home, Self-Care Instructions: Levofloxacin (By mouth), Ear Infection (ED) Additional Instructions: You were in the ED today for right ear pain You have an inner ear infection of your right ear called otitis media. Treatment for this is with antibiotics. Levofloxacin is an antibiotic that has been sent to the pharmacy for treatment. Take this as prescribed over the next 5 days to treat ear infection. Continue taking Tylenol and Motrin at home for pain Follow-up with your primary care provider this week. Return with new or worsening symptoms. In the case of an emergency call 911. Prescriptions: New levofloxacin 500 mg tablet 500 mg PO DAILY 5 Days Qty: 5 0RF No Action doxycycline hyclate 100 mg capsule 100 mg PO BID 7 Days Qty: 14 0RF prednisone 20 mg tablet 40 mg PO DAILY 5 Days Qty: 10 0RF levofloxacin 500 mg tablet 500 mg PO DAILY Qty: 5 0RF Referrals: Eliazar Dorsey MD [Primary Care Provider] - Print Language: Montserratian
[2024-03-26] MEDS: Ketorolac Tromethamine 30 MG/ML VIAL IM (11:09)
[2024-03-26 11:20] VITALS: BP 144/88; PULSE 110; RESP 19; TEMP 36.9; O2SAT 100
--- OUTSIDE RECORDS SUMMARY | 2024-03-30 11:46 | XMS_ITS | Continuity of Care Document ---
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 Name Role Phone Eliazar Dorsey MD Primary Care Physician Encounter [facility] [place] Date(s): 03/27/24 - 03/28/[address] [id number] [[email or web address]] Encounter Diagnosis Acute mastoiditis of right side(Final) - 03/27/24 Discharge Disposition: A-D/C Home Attending Physician: Kalpana Mercado MD Admitting Physician: Shaji Ojeda DO Referring Physician: Not on Staff, Referring MD Encounter Type: Disch Obv Allergies, Adverse Reactions, Alerts Substance Criticality Severity Reaction Reaction Severity Status amoxicillin Active Keflex 1 Active 1Rash Immunizations Given and Recorded Vaccine Date Status Refusal Reason tetanus/diphtheria/pertussis, acel(Tdap) 07/30/22 Given influenza virus vaccine, inactivated 03/28/22 Viet rded influenza virus vaccine, inactivated 02/03/19 Viet rded influenza virus vaccine, inactivated 01/19/18 Veit rded influenza virus vaccine, inactivated 02/12/17 Viet rded influenza virus vaccine, inactivated 03/10/16 Viet rded influenza virus vaccine, inactivated 06/05/15 Viet rded influenza virus vaccine, inactivated 1 02/17/13 Gi kwame SARS-CoV-2 mRNA ([id number]) vax 05/30/21 Recorded SARS-CoV-2 (COVID-19) mRNA BNT-162b2 vac 09/03/20 Recorded SARS-CoV-2 (COVID-19) mRNA BNT-162b2 vac 08/13/20 Recorded pneumococcal 23-valent vaccine 01/17/20 Given Meningococcal Conjugate Vaccine 11/11/16 Recorded Hepatitis A Pediatric Vaccine 11/07/14 Recorded influ virus vac, H1N1, inactive(oldterm) 2 03/05/09 Given 1Admin Note: vis given 11/27/09 2Admin Note: #2 H1N1 - vis given Medications acetaminophen 325 mg oral tablet 975 mg, By Mouth, Every 6 hours, PRN, Temperature Greater than 100.5, Refills 0, Maintenance, Pain , Mild, 03/28/24 2:22:00 PM EST, Partial fill upon patient request if the prescription is for a schedule II opioid drug. Start Date: 03/28/24 Status: Ordered Repeat number: 1 Albuterol 2 puffs, 0 Refills, Maintenance, 06/25/15 2:16:51 PM EST Start Date: 06/25/15 Status: Ordered Repeat number: 1 buPROPion 100 mg oral tablet 1 tablet = 100 mg, By Mouth, Daily, 0 Refills, Maintenance, 01/24/17 8:30:12 AM EDT Start Date: 01/24/17 Status: Ordered Repeat number: 1 busPIRone 5 mg oral tablet 2.5 mg, 0.5, tablet, By Mouth, Daily, Refills 0, Maintenance, 04/25/19 4:43:00 PM EST Start Date: 04/25/19 Status: Ordered Repeat number: 1 ciprofloxacin-hydrocortisone 0.2%-1% otic suspension See Instructions, 3 drops affected ear, Both 2 times a day 10 days, # 10 mL, 0 Refills, Acute 04/07/24 3:15:00 PM EST, 03/28/24 2:21:00 PM EST, [facility], Partial fill upon patient request if the prescription is for a schedule II opioid drug., 3 drops affected ear, Both 2 times a day 10 days, 173, cm, 03/28/24 10:52:00 EST, Height, 61, kg, 03/27/24 18:17:00 EST, Dry Weight Start Date: 03/28/24 Stop Date: 04/07/24 Status: Ordered Quantity: 10.0 Unit: mL Repeat number: 1 ethinyl estradiol-norgestimate 35 mcg-0.25 mg oral tablet 1 tablet, By Mouth, Daily, # 28 tablet, 0 Refills, Maintenance, 03/27/24 10:15:00 PM EST, Tablet, Partial fill upon patient request if the prescription is for a schedule II opioid drug. Start Date: 03/27/24 Status: Ordered Quantity: 28.0 Unit: tablet Repeat number: 1 ibuprofen 600 mg oral tablet 600 mg, By Mouth, 3 times a day, PRN, Refills 0, Maintenance, Pain , Mild, 03/28/24 2:22:00 PM EST, Partial fill upon patient request if the prescription is for a schedule II opioid drug. Start Date: 03/28/24 Status: Ordered Repeat number: 1 levoFLOXacin 500 mg oral tablet 1 tablet = 500 mg, By Mouth, Every 24 hours, for 5 days, # 5 tablet, 0 Refills, Acute 04/02/24 2:22:00 PM EST, 03/28/24 2:22:00 PM EST, Tablet, [facility], Partial fill upon patient request if the prescription is for a schedule II opioid drug., 173, cm, 03/28/24 10:52:00 EST, Height, 61, kg, 03/27/24 18:17:00 EST, Dry Weight Start Date: 03/28/24 Stop Date: 04/02/24 Status: Ordered Quantity: 5.0 Unit: tablet Repeat number: 1 meclizine 25 mg oral tablet 1 tablet = 25 mg, By Mouth, 3 times a day, PRN for dizziness, for 5 days, # 15 tablet, 0 Refills, Acute 04/02/24 3:45:00 PM EST, 03/28/24 3:45:00 PM EST, Tablet, [facility], Partial fillupon patient request if the prescription is for a schedule II opioid drug., 173, cm, 03/28/24 15:25:00 EST, Height, 61, kg, 03/27/24 18:17:00 EST, Dry Weight Start Date: 03/28/24 Stop Date: 04/02/24 Status: Ordered Quantity: 15.0 Unit: tablet Repeat number: 1 oxyCODONE 5 mg oral tablet 5 mg, Tablet, By Mouth, Every 6 hours, PRN for Pain , Severe, Routine, 03/28/24 12:55:00 PM EST Start Date: 03/28/24 Stop Date: 04/04/24 Status: Ordered Repeat number: 1 oxyCODONE 5 mg oral tablet 5 mg, By Mouth, Every 6 hours, PRN, for 3 days, # 20 tablet, Refills 0, Tot. Refills 0, Acute 03/31/24 2:22:00 PM EST, Pain , Severe, 03/28/24 2:22:00 PM EST, Route to Pharmacy Electronically, [facility], Partial fill upon patient request if the prescription is for a schedule II opioiddrug., 173, cm, 03/28/24 10:52:00 EST, Height, 61, kg, 03/27/24 18:17:00 EST, Dry Weight Start Date: 03/28/24 Stop Date: 03/31/24 Status: Ordered Quantity: 20.0 Unit: tablet Repeat number: 1 Ventolin HFA 108 mcg/inh inhalation aerosol with adapter 1 puffs, Inhalation, Every 6 hours, PRN for wheezing, # 8 Gm, 0 Refills, Maintenance, 10/06/23 4:57:00 PM EDT, Aerosol, [id number], Partial fill upon patient request if the prescription is fora schedule II opioid drug., 171.1, cm, 09/25/23 13:13:00 EDT, Height Start Date: 10/06/23 Status: Ordered Quantity: 8.0 Unit: g Repeat number: 1 Problem List Condition Confirmation Course Effective Dates Status H ealth Status Informant Anxiety Confirmed Active Exercise-induced asthma Confirmed Active Family history of pancreatic cancer 1 Confirmed Active History of cellulitis Confirmed Active Heavy menses Confirmed Active 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 1Dad Results Radiology Reports * Exam Date Time Procedure Performing Provider Status 03/27/24 5:[address] Temp Bones W/ Contrast Nadia Sarabia; Auth (Verified) Notes: (CT Temp Bones W/ Contrast) Reason For Exam: R otitis externa/ear drainage;Mastoiditis RESULT: CT Temp Bones W/ Contrast CT Temp Bones W/ Contrast INDICATION: Hx of Present Illness: R ear pain; Reason: Mastoiditis; R otitis externa ear drainage; Clinical Question(s): Mastoiditis; Special Instructions: temporal bones; Order Comment: / Mastoiditis TECHNIQUE: Thin section axial imaging was performed through the temporal bones with intravenous contrast. 100 cc of Isovue 300 was administered intravenously. Coronal reformats were created. Age-based protocol was used to optimize exposure parameters. RADIATION DOSE PARAMETERS: CTDIvol Head: 36.90 mGy, DLP Head: 301 mGy*cm. COMPARISON: Maxillofacial CT 07/22/2011. FINDINGS: RIGHT TEMPORAL BONE: Mastoid: There is near complete opacification of mastoid air cells. No bony erosion or septal resorption is seen. External canal and tympanic membrane: There is wall thickening of the external auditory canal, withsome debris in the deep aspect of the canal. Tympanic membrane is obscured by adjacent opacity. Middle ear: There is partial opacification of the right middle ear cavity. There is normal appearance to the ossicular chain without bony erosion. The scutum is sharp. Inner ear: The otic capsule appears normal. The cochlea, vestibule, and semicircular canals appear well formed without anomaly or fistula. The IAC appears normal in size. Vestibular aqueduct is normal in caliber. Semicircular canals are covered by bone. Facial Nerve: The facial nerve course appears normal. Vessels: There is no aberrant internal carotid artery or high riding jugular bulb. There is normal enhancement in the sigmoid sinus and jugular bulb, as well as the ICA. LEFT TEMPORAL BONE: Mastoid: The mastoid appears well pneumatized and aerated. External canal and tympanic membrane: Minimal debris in the external canal. The external canal and tympanic membrane appear otherwise normal. Middle ear: There is normal appearance to the ossicular chain. No mass or inflammatory change is appreciated. Prussak's space is clear. The scutum is sharp. Inner ear: The otic capsule appears normal. The cochlea, vestibule, and semicircular canals appear well formed without anomaly or fistula. The IAC appears normal in size. Vestibular aqueduct is normal in caliber. Semicircular canals are covered by bone. Facial Nerve: The facial nerve course appears normal. Vessels: There is no aberrant internal carotid artery or high riding jugular bulb. There is normal enhancement in the sigmoid sinus and jugular bulb, as well as the ICA. OTHER FINDINGS: Neuromuscular mucosal thickening in the visualized paranasal sinuses, with layering fluid in the right maxillary sinus and right sphenoid sinus. Rightward nasal septal effusion is present. Visualizedintracranial structures are within normal limits. Remaining visualized extracranial soft tissues are unremarkable. No fluid collection or abscess is seen. IMPRESSION: 1. Right-sided otitis media, otitis externa, and mastoiditis. No evidence of bony erosion or abscess to suggest complicated infection. 2. Mucosal thickening in the paranasal sinuses with fluid levels in the right maxillary and sphenoid sinuses, indicating concurrent sinusitis. A similar preliminary report was provided by [facility]. WSN: [id number] Ordering Physician: Lena Santana Dictated By: Shara Brink MD Dictated Date/Time: 03/28/24 7:44 am Reviewed By: Shara Brink MD Signed By: Shara Brink MD Signed Date/Time: 03/28/24 7:44 am Transcribed By: ANY Transcribed Date/Time: 03/28/24 7:32 am Vital Signs Most recent to oldest [Reference Range]: 1 2 3 Height 173 cm (03/28/24 3:25 PM) 173 cm (03/28/24 10:52 AM) 173 cm (03/28/24 7:12 AM) Weight 61.8 kg (03/27/24 10:27 PM) 61 kg (03/27/24 6:17 PM) 61 kg (03/27/24 2:31 PM) Oxygen Saturation [94-100 %] 99 % (03/28/24 3:25 PM) 100 % (03/28/24 10:52 AM) 100 % (03/28/24 7:12 AM) Pulse Rate [55-90 bpm] 81 bpm (03/28/24 3:25 PM) 77 bpm (03/28/24 10:52 AM) 81 bpm (03/28/24 7:12 AM) Body Mass Index [18.5-24.99 kg/m2] 20.65 kg/m2 (03/27/24 10:27 PM) 20.38 kg/m2 (03/27/24 6:17 PM) Blood Pressure [90-138/55-84 mm Hg] 128/77mm Hg (03/28/24 3:25 PM) 127/82mm Hg (03/28/24 10:52 AM) 128/70mm Hg (03/28/24 7:12 AM) Respiratory Rate [16-30 br/min] 20 br/min (03/28/24 3:25 PM) 18 br/min (03/28/24 12:37 PM) 18 br/min (03/28/24 11:59 AM) Temperature [96.8-100.4 DegF] 98.4 DegF (03/28/24 3:25 PM) 97.9 DegF (03/28/24 10:52 AM) 97.9 DegF (03/28/24 7:12 AM) Mode of Delivery (Oxygen) Room air (03/28/24 3:25 PM) Room air (03/28/24 10:52 AM) Room air (03/28/24 7:12 AM) Blood pressure sites Arm, left (03/28/24 3:25 PM) Arm, left (03/28/24 10:52 AM) Arm, left (03/28/24 7:12 AM) Temperature Route Oral (03/28/24 3:25 PM) Oral (03/28/24 10:52 AM) Oral (03/28/24 7:12 AM) Dry Weight 61 kg (03/27/24 6:17 PM) 61 kg (03/27/24 2:31 PM) Weight Obtained Via Standing scale (03/27/24 10:27 PM) Patient/family stated (03/27/24 2:31 PM) Social History Social History Type Response Smoking Status Never (less than 100 in lifetime) entered on: 07/29/19 Sex Sex Representation Female (finding) Admission evaluation note * Kvng PEDRAZA, Alejandra Ramos: MODIFY Alejandra Calderon MD: MODIFY Event Display: Admission Note Authored Date: Patient: ??BG DREW ? Age:??24 Years?Sex:??Female?:??2000?? Chief Complaint/Reason for Consultation from home, 3 days ago c/o right ear pain felt a pop, went to urgent care, told she has an ear infection; has been on doxycycline and has not been able to tolerate PO for 3 days; 4mg zofran #20 lac History of Present Illness Patient presents with R ear pain that began around gi (03/17) and has worsened since then. In the last few days pain has become severe to the point that she has had nausea/vomiting and limited PO intake. ?? Recent timeline coppied from ED note: 03/25/24 -evaluated at a care center in [place] at that time given a prescription for Neomycineardrops, no improvement in pain 03/26/24 -evaluated at [facility] ED given prescription for Kfebfgyg74/8/24 -evaluated again at [facility] ED given additional prescription of Doxycycline to take in conjunction with the Levaquin, no improvement of symptoms now complaining of ear drainage ?? Patient has CFTR mutation with borderline sweat chloride test and normal fecal elastase; she has had recurrent sinusitis which improved following sinus surgery at age 9, but in the last 2 yrs has hadmore frequent infections. Over the summer she had mononucleosis and developed chronic sinus congestion/cough likely due to post nasal drip after this. She was treated for AOM in December with improve ment in symptoms, but the cough persisted. 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 ?? Of note, patient has had severe reactions to both amoxicillin and Keflex with rash, abdominal pain,nausea/vomiting, diarrhea and fever. ?? In the ED, labs significant for mild leukocytosis, elevated ESR and CRP. CT showed evidence of mastoiditis and ENT was consulted; recommended IV levofloxacin as well as topical ciprofloxacin and dexamethasone. Patient required Ativan for severe anxiety and was given Tylenol and Motrin for pain. Review of Systems Negative for chest pain, difficulty breathing, fever/chills, diarrhea, weakness, vision changes, cough, rash Positive for ear pain, nausea/vomiting associated with severe pain Objective Vital Signs?? Temperature: 98.1 DegF (03/28/24 04:54:00) Temperature Route: Oral (03/28/24 04:54:00) Pulse Rate:??103 bpm??High (03/28/24 04:54:00) Respiratory Rate: 20 br/min (03/28/24 04:54:00) Systolic Blood Pressure: 132 mm Hg (03/28/24 04:54:00) Diastolic Blood Pressure:??85 mm Hg??High (03/28/24 04:54:00) Blood pressure sites: Arm, right (03/28/24 04:54:00) Mean Arterial Pressure: 101 mm Hg (03/28/24 04:54:00) Pulse Pressure: 47 mm Hg (03/28/24 04:54:00) Oxygen Saturation: 100 % (03/28/24 04:54:00) Mode of Delivery (Oxygen): Room air (03/28/24 04:54:00) Early Warning Score: 1 (03/28/24 04:55:00) ?? Physical Exam CONST: Alert, in no acute??distress. MENTAL STATUS: Oriented to person, place and time. HEENT: Normocephalic. Pupils are equal, round. Extraocular muscles grossly??intact. Mucous membranes moist. > R ear with serosanguineous drainage, tenderness to palpation, TM visible with purulent effusion. No external ear erythema or edema, no enlarged cervical lymph nodes RESP: Clear to auscultation with good air movement bilaterally. No wheezing, rales or rhonchi. CV: S1 S2 regular. No murmurs, rubs or gallops. NEURO: Moves all extremities spontaneously. No gross focal deficits. Air conduction hearing diminished on the R, Bone conduction equal bilaterally, normal and symmetric strength in facial muscles, normal and symmetric facial sensation SKIN: No visible rashes or lesions. No petechiae or purpura.?? MSK: No cyanosis or clubbing. No gross deformities. Normal range of motion. PSYCH: anxious Assessment/Plan Diagnoses 1. ??Acute mastoiditis of right side ??(H70.001) 2.?? Acute Otitis Media, Right (H66.91) 3. 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 ??Anxiety ??(F41.9) ?? Assessment:??24 year old female?? 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 She is admitted for IV antibiotics. ?? 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 Recent antibiotics and steroids: Azithromycin 09/29 x5 days, 12/13 x5days Levofloxacin 12/31 x5 days, 03/26 x1 dose Doxycycline 12/23 x14 days, 01/14 x14 days, 03/27 x1 dose Neomycin polymyxin drops 03/25 Ciprofloxacin drops??03/26 Prednisone 40mg 6/7 x5 days, 9 x5 days Dexamethasone 10mg 03/25 x1 dose ?? Patient had ear pain and was treated for AOM in??December; symptoms resolved??but returned around??Thanksgiving, have progressively worsened. Purulent effusion on exam with serosanguineous drainage and CT??evidence of mastoiditis. ENT??consulted, appreciate recs Unfortunately patient has had severe reactions to amoxicillin and Keflex so will avoid cefepime andzosyn for now; however she was recently treated with levofloxacin so if symptoms do not improve mayneed to consider trial with close monitoring - continue IV levofloxacin 750mg daily; - follow up ear culture - continue??topical therapy with Ofloxacin Otic 10??drops in??R ear BID and Dexamethasone Ophthalmic 4 drops in R ear??4 times daily - Tylenol and Motrin for pain ?? Anxiety ??(F41.9): continue home Buspirone 2.5mg qHS and Bupropion SR 100mg qHS; consider dosingBupropion in the morning for improved effect during the day ?? control:??not on formulary, use patient's own med if able to bring in; Missed dose last night so take last night's dose as soon as it is available in addition to tonight's scheduled dose ?? VTE Prophylaxis:??low risk ?VTE Prophylaxis Assessment:??Risk Level documented as Low Risk Discharge Planning:??anticipate discharge home Ongoing Medical Necessity:??IV antibiotics Code Status:??Full (confirmed on admission) ?Order Code Status:??Code Status Ordered ?? Patient seen by??and discussed with attending Dr. Kvng Merritt MD Internal Medicine - Pediatrics, PGY2 TC, [id number]? Attending Attestation:??I have seen and evaluated this patient- 03/28/24 on D3 after she presented for evaluation of R ear pain in setting of congestion and chronic cough with background CF and Abxallergies- found to have wbc 11.9, crp 22.[address] prelim showing R mastoiditis-- admitted for ongoing treatment and ENT evaluation. ??I have discussed the case and its management with the resident and agree with the findings and plan as documented in the resident???s note. ?? Histories Allergies Allergies ?(Active and Proposed Allergies Only) Keflex? (Severity: Unknown severity, Onset: Unknown) ?Comments: Rash amoxicillin? (Severity: Unknown severity, Onset: Unknown) ? 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 Past Surgical History No surgery history documented. ? Social History Alcohol Details:??Use: Never. Employment/School Details:??Status: Employed. 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 Exercise Details:??Regular exercise: Yes. Home/Environment Details:??Other: Single; 0 children; 1 dog. Nutrition/Health Details:??Diet: Regular. Sexual Details:??Gender identity: Identifies as female. ??Preferred pronoun: She/her. Substance Abuse Details:??Use: Never. Tobacco Details:??Use: Never (less than 100 in lifetime). Details:??Never smoker, Tobacco user in household: No. Details:??Never smoker Electronic Cigarette/Vaping Details:??Electronic Cigarette Use: Never. ? Family History Mother: Migraine Father: Diabetes mellitus type II; Hyperlipidemia; Pancreatic cancer Brother: Asthma ? Medications Home Medications Albuterol?2?puff(s) Albuterol (Ventolin HFA 108 mcg/inh inhalation aerosol with adapter)?1?puff(s)?Inhalation?Every 6 hours?as needed?for wheezing BuPROpion (buPROPion 100 mg oral tablet)?1?tab(s)?100?Milligram?By Mouth?Daily BusPIRone (busPIRone 5 mg oral tablet)?2.5?Milligram?0.5?tablet?By Mouth?2 times a day Ciprofloxacin-Hydrocortisone Otic (ciprofloxacin-hydrocortisone 0.2%-1% otic suspension)?See Instructions?3 drops affected ear, Both 2 times a day 10 days Doxycycline (doxycycline hyclate 100 mg oral tablet)?1?tab(s)?100?Milligram?By Mouth?2 times a day Ethinyl Estradiol-Norgestimate (ethinyl estradiol-norgestimate 35 mcg-0.25 mg oral tablet)?1?tab(s)?By Mouth?Daily Levofloxacin (levoFLOXacin 500 mg oral tablet)?1?tab(s)?500?Milligram?By Mouth?Every 24 hours?for 5?Days ? Results Recent Labs BLOOD COUNT & DIFF WBC 11.8 k/mm3 (High)?? 03/27/2024 16:43 RBC 4.22 m/mm3 ()?? 03/27/2024 16:43 Hgb 12.5 Gm/dL ()?? 03/27/2024 16:43 Hct 38.0 % ()?? 03/27/2024 16:43 MCV 90.0 femtoliters ()?? 03/27/2024 16:43 MCH 29.6 pg ()?? 03/27/2024 16:43 MCHC 32.9 Gm/dL (Low)?? 03/27/2024 16:43 Platelet Count 193 k/mm3 ()?? 03/27/2024 16:43 RDW-SD 42.7 femtoliters ()?? 03/27/2024 16:43 MPV 9.9 femtoliters ()?? 03/27/2024 16:43 Nucleated RBC (Automated) 0.0 #/100 WBC'S ()?? 03/27/2024 16:43 Abs. NRBC 0.0 k/mm3 ()?? 03/27/2024 16:43 Abs. Neut 8.8 k/mm3 (High)?? 03/27/2024 16:43 Abs. Lymph 1.6 k/mm3 ()?? 03/27/2024 16:43 Abs. [place] 1.1 k/mm3 (High)?? 03/27/2024 16:43 Abs. Eo 0.3 k/mm3 ()?? 03/27/2024 16:43 Abs. Baso 0.0 k/mm3 ()?? 03/27/2024 16:43 Neut % 74.7 % ()?? 03/27/2024 16:43 Lymph % 13.6 % (Low)?? 03/27/2024 16:43 [place] % 8.9 % ()?? 03/27/2024 16:43 Eos % 2.2 % ()?? 03/27/2024 16:43 Baso % 0.3 % ()?? 03/27/2024 16:43 Imm Gran 0.3 % ()?? 03/27/2024 16:43 Abs. Imm Gran 0.0 k/mm3 ()?? 03/27/2024 16:43 ?? CHEM GENERAL Sodium 139 mmol/L ()?? 03/27/2024 16:43 Potassium 4.0 mmol/L ()?? 03/27/2024 16:43 Chloride 105 mmol/L ()?? 03/27/2024 16:43 Bicarbonate Level 20 mmol/L (Low)?? 03/27/2024 16:43 Anion Gap 14 ()?? 03/27/2024 16:43 Glucose Level 86 mg/dL ()?? 03/27/2024 16:43 BUN 7 mg/dL ()?? 03/27/2024 16:43 Creatinine-Blood 0.82 mg/dL ()?? 03/27/2024 16:43 Estimated GFR Creatinine 102 ML/MIN/1.73 M2 ()?? 03/27/2024 16:43 Calcium 9.0 mg/dL ()?? 03/27/2024 16:43 C-Reactive Protein 22.9 mg/dL (High)?? 03/27/2024 16:43 ?? ENDOCRINE/TUMOR MARKER Blood <1 mIU/mL ()?? 03/27/2024 16:43 ?? HEME OTHER Sed Rate 43 mm/hr (High)?? 03/27/2024 16:43 ?? MISC. CHEMISTRY Hold Gel Top SPECIMEN DISCARDED AFTER 1 WEEK ()?? 03/27/2024 16:43 ?? URINE OTHER Est Creatinine Clearance 101.87 mL/min ()?? 03/27/2024 17:33 ? Hospital Progress note * Bari Barbosa RN: PERFORM, SIGN, VERIFY Event Display: Progress Note Hospital Authored Date: Patient: JUAN DREW Age: 24 years Sex: Female : 2000 Associated Diagnoses: None Author: Bari Barbosa RN Findings Evaluation Pt A+Ox4, cooperative with care. Anxious at times. LS clear, pt denies SOB. Pt denies CP. +BSx4, mild nausea, zofran given with good effect. Voiding adequate clear yellow urine in BR. BM 03/27. OOB adlib, steady. Ear drops given as ordered. Pain managed with tylenol and ibuprofen. R ear canal red, with small amount of prather/red drainage externally. Will cont to monitor comfort/R ear status. * Reinier Samayoa RN: PERFORM, SIGN, VERIFY Event Display: Progress Note Hospital Authored Date: Patient: BG DREW Age: 24 years Sex: Female : 2000 Associated Diagnoses: None Author: Yao CANCHOLA, Reinier Findings Nursing Data Neurological Data. : Neurological Data. 03/28/2024 0:00 EST Tongue Disposition Midline Neurological Symptoms Other: Diminished hearing in right ear. Level of Consciousness Full Consciousness Hallucinations None Facial Symmetry Intact Characteristics of Speech Clear and normal Swallowing Difficulty None Pupil description, left Regular Pupil description, right Regular Pupil reaction, left Brisk Pupil reaction, right Brisk Pupil Size, Left 3 mm Pupil Size, Right 3 mm Strength LUE 5-Active movement against gravity & full resistance Strength RUE 5-Active movement against gravity & full resistance Strength LLE 5-Active movement against gravity & full resistance Strength RLE 5-Active movement against gravity & full resistance Tone LUE Normal Tone RUE Normal Tone LLE Normal Tone RLE Normal Sensation LUE Intact Sensation RUE Intact Sensation LLE Intact Sensation RLE Intact Movement LUE Spontaneous Movement RUE Spontaneous Movement LLE Spontaneous Movement RLE Spontaneous Gait Steady Response Eye Opening Spontaneously Motor Response-Adult Obeys commands Verbal Response-Adult Oriented and converses Jillian Coma Score 15 1 - 10 Pain Scale Score 7 Pain Interventions Pharmacological, PRN medication, Repositioning, Rest Pain relief acceptable Yes Pain Comment Right ear pain Neuro WNL except Corneal/Blink Reflex Intact right, Intact left Eyes and Movements Conjugate gaze: Move in same direction at same speed Headache Moderate Headaches, Associated with Other: Right ear infection Headaches, Characteristic Unilateral Headaches, Duration Constant Memory Intact Swallow - Neuro Normal . Evaluation Assumed care at 2300.To unit from ED.Right inner ear pain reported.PRN Tylenol and ibuprofen given per orders with good effect.VSS.See biophysical assessment.Emotional support provided.Safety maintained.. Consult note * Mimi Schreiber MD: PERFORM, SIGN, VERIFY Event Display: Consultation Note Authored Date: Patient: JUAN DREW Age: 24 years Sex: Female : 2000 Associated Diagnoses: None Author: Mimi Schreiber MD History of Present Illness 24-year-old female evaluated today for assessment of possible mastoiditis. Patient states she beganto have an ear infection around Thanksgiving which did not resolve with oral antibiotic. Has been having worsening pain and presented to the ER. CT scan shows a mastoid effusion but no coalescent mastoiditis. She has been started on IV Levaquin and receiving ofloxacin and dexamethasone drops. 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 College student. Family History Non-contributory Physical Examination Vital Signs Vitals 03/28/2024 10:52 EST Height 173 cm Temperature 97.9 DegF Temperature Route Oral Pulse Rate 77 bpm Respiratory Rate 18 br/min Systolic Blood Pressure 127 mm Hg Diastolic Blood Pressure 82 mm Hg Blood pressure sites Arm, left Mean Arterial Pressure 97 mm Hg Pulse Pressure 45 mm Hg Oxygen Saturation 100 % Mode of Delivery (Oxygen) Room air . General: Alert and comfortable on exam HEENT: Ears in normal position, no proptosis. No erythema or fluctuance over mastoid. Canal patent with otorrhea. Likely TM perforation but unclear due to drainage. Left ear unremarkable. Impression and Plan 24-year-old female evaluated today for possible mastoiditis. Imaging was reviewed today and is not consistent with coalescent mastoiditis. Exam is consistent with otitis media and otitis externa. Recommended continue IV antibiotic such as Levaquin and switching to ciprofloxacin orally after 24 to 48 hours. Would recommend switching from ofloxacin drops to ciprofloxacin and continuing dexamethasone. Will plan to see patient on an outpatient basis upon discharge. Note * Bari Barbosa RN: PERFORM Event Display: Discharge/Transfer Note Hospital Authored Date: [id number] Nursing Discharge Note Entered On: 03/28/2024 16:11 EST Performed On: 03/28/2024 16:10 EST by Bair Barbosa RN Nursing Discharge Note 2 Discharge Time : 03/28/2024 15:55 EST Discharge Level of Care at Discharge : Home/Fci/Foster Care Patient Left Unit Via : Ambulatory Patient Accompanied Off Unit with : Responsible adult DC Instructions Provided & Signed by Pt : Yes Patient Understands D/C Instructions : Yes Patient Instructions Discharge Signed : Yes Did Pt have Specialty Bed or Wound Vac : No Bari Barbosa RN - 03/28/2024 16:10 EST * Jess PEDRAZA, Kalpana: PERFORM, MODIFY Event Display: Discharge/Transfer Note Hospital Authored Date: [id number] Patient: ??JUAN DREW ? Age:??24 Years?Sex:??Female?:??2000?? 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 (Q99.8) Anxiety (F41.9) Acute otitis media, right (H66.91) _ Discharge Medications Acetaminophen (acetaminophen 325 mg oral tablet)?975?Milligram?By Mouth?Every 6 hours?as needed?Temperature Greater than 100.5?Pain , Mild Albuterol?2?puff(s) Albuterol (Ventolin HFA 108 mcg/inh inhalation aerosol with adapter)?1?puff(s)?Inhalation?Every 6 hours?as needed?for wheezing BuPROpion (buPROPion 100 mg oral tablet)?1?tab(s)?100?Milligram?By Mouth?Daily BusPIRone (busPIRone 5 mg oral tablet)?2.5?Milligram?0.5?tablet?By Mouth?2 times a day Ciprofloxacin-Hydrocortisone Otic (ciprofloxacin-hydrocortisone 0.2%-1% otic suspension)?See Instructions?3 drops affected ear, Both 2 times a day 10 days Ethinyl Estradiol-Norgestimate (ethinyl estradiol-norgestimate 35 mcg-0.25 mg oral tablet)?1?tab(s)?By Mouth?Daily Ibuprofen (ibuprofen 600 mg oral tablet)?600?Milligram?By Mouth?3 times a day?as needed?Pain , Mild Levofloxacin (levoFLOXacin 500 mg oral tablet)?1?tab(s)?500?Milligram?By Mouth?Every 24 hours?for 5?Days Oxycodone (oxyCODONE 5 mg oral tablet)?5?Milligram?By Mouth?Every 6 hours?as needed?for 3?Days?Pain , Severe ? Medications Started ear drops, levofloxacin, oxycodone Allergies Allergies ?(Active and Proposed Allergies Only) Keflex? (Severity: Unknown severity, Onset: Unknown) ?Comments: Rash amoxicillin? (Severity: Unknown severity, Onset: Unknown) ? Hospital Course ??24 year old female?? 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 She is admitted for IV antibiotics. ?? 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 Recent antibiotics and steroids: Azithromycin 09/29 x5 days, 12/13 x5days Levofloxacin 12/31 x5 days, 03/26 x1 dose Doxycycline 12/23 x14 days, 01/14 x14 days, 03/27 x1 dose Neomycin polymyxin drops 03/25 Ciprofloxacin drops??03/26 Prednisone 40mg 09/24 x5 days, 12/23 x5 days Dexamethasone 10mg 03/25 x1 dose ?? Patient had ear pain and was treated for AOM in??December; symptoms resolved??but returned around??Thanksgiving, have progressively worsened. Purulent effusion on exam with serosanguineous drainage and CT??evidence of mastoiditis. ENT??consulted, no mastoidits and only effusion. recommend levofloxacin for 5 days along with ciprofloxacin hydrocrtisone ear drops. pain control with tylenol,ibuprofen, oxycodone follow up ear culture, ENT follow up outpt dizziness likely from inflammation ?? Anxiety ??(F41.9): continue home Buspirone 2.5mg qHS and Bupropion SR 100mg qHS Objective Assessment and Plan Discharge Planning:? Vital Signs?? Temperature: 97.9 DegF (03/28/24 10:52:00) Temperature Route: Oral (03/28/24 10:52:00) Pulse Rate: 77 bpm (03/28/24 10:52:00) Respiratory Rate: 18 br/min (03/28/24 12:37:00) Systolic Blood Pressure: 127 mm Hg (03/28/24 10:52:00) Diastolic Blood Pressure: 82 mm Hg (03/28/24 10:52:00) Blood pressure sites: Arm, left (03/28/24 10:52:00) Mean Arterial Pressure: 97 mm Hg (03/28/24 10:52:00) Pulse Pressure: 45 mm Hg (03/28/24 10:52:00) Oxygen Saturation: 100 % (03/28/24 10:52:00) Mode of Delivery (Oxygen): Room air (03/28/24 10:52:00) Early Warning Score: 2 (03/28/24 12:40:39) ? . Physical Exam Pending Results Wound Superficial Culture W/ Gram Smear ordered on 03/27/2024 Follow-Up Appointments Added Follow Up ?Time Frame ?Comments Candie PEDRAZA, Mimi Zavala?Within one week Sunita PEDRAZA, Eliazar Carrasco Home [facility] Face to Face ^HomeHealthFTF Results Discharge Labs BACTERIOLOGY Blood Culture Results Preliminary report ()?? 03/27/2024 21:10 Blood Culture Specimen Source BLOOD ()?? 03/27/2024 21:10 Blood Culture Isolate 1 Comment ()?? 03/27/2024 21:10 Blood Cult 2 Results Preliminary report ()?? 03/27/2024 21:10 Blood Culture 2 Specimen Source BLOOD ()?? 03/27/2024 21:10 Blood Culture 2 Isolate 1 Comment ()?? 03/27/2024 21:10 ?? BLOOD COUNT & DIFF WBC 7.3 k/mm3 ()?? 03/28/2024 07:55 RBC 3.99 m/mm3 (Low)?? 03/28/2024 07:55 Hgb 11.8 Gm/dL ()?? 03/28/2024 07:55 Hct 36.4 % ()?? 03/28/2024 07:55 MCV 91.2 femtoliters ()?? 03/28/2024 07:55 MCH 29.6 pg ()?? 03/28/2024 07:55 MCHC 32.4 Gm/dL (Low)?? 03/28/2024 07:55 Platelet Count 159 k/mm3 ()?? 03/28/2024 07:55 RDW-SD 44.0 femtoliters ()?? 03/28/2024 07:55 MPV 9.7 femtoliters ()?? 03/28/2024 07:55 Nucleated RBC (Automated) 0.0 #/100 WBC'S ()?? 03/28/2024 07:55 Abs. NRBC 0.0 k/mm3 ()?? 03/28/2024 07:55 Abs. Neut 8.8 k/mm3 (High)?? 03/27/2024 16:43 Abs. Lymph 1.6 k/mm3 ()?? 03/27/2024 16:43 Abs. [place] 1.1 k/mm3 (High)?? 03/27/2024 16:43 Abs. Eo 0.3 k/mm3 ()?? 03/27/2024 16:43 Abs. Baso 0.0 k/mm3 ()?? 03/27/2024 16:43 Neut % 74.7 % ()?? 03/27/2024 16:43 Lymph % 13.6 % (Low)?? 03/27/2024 16:43 [place] % 8.9 % ()?? 03/27/2024 16:43 Eos % 2.2 % ()?? 03/27/2024 16:43 Baso % 0.3 % ()?? 03/27/2024 16:43 Imm Gran 0.3 % ()?? 03/27/2024 16:43 Abs. Imm Gran 0.0 k/mm3 ()?? 03/27/2024 16:43 ?? CHEM GENERAL Sodium 137 mmol/L ()?? 03/28/2024 07:55 Potassium 3.4 mmol/L (Low)?? 03/28/2024 07:55 Chloride 102 mmol/L ()?? 03/28/2024 07:55 Bicarbonate Level 21 mmol/L (Low)?? 03/28/2024 07:55 Anion Gap 14 ()?? 03/28/2024 07:55 Glucose Level 145 mg/dL (High)?? 03/28/2024 07:55 BUN 7 mg/dL ()?? 03/28/2024 07:55 Creatinine-Blood 0.80 mg/dL ()?? 03/28/2024 07:55 Estimated GFR Creatinine 105 ML/MIN/1.73 M2 ()?? 03/28/2024 07:55 Calcium 8.6 mg/dL ()?? 03/28/2024 07:55 C-Reactive Protein 22.9 mg/dL (High)?? 03/27/2024 16:43 ? ENDOCRINE/TUMOR MARKER Blood <1 mIU/mL ()?? 03/27/2024 16:43 ? HEME OTHER Sed Rate 43 mm/hr (High)?? 03/27/2024 16:43 Hold Lavender Top SPECIMEN DISCARDED AFTER 24 HOURS. ()?? 03/27/2024 16:43 Hold Blue Top SPECIMEN DISCARDED AFTER 4 HOURS. ()?? 03/27/2024 16:43 ? MISC. CHEMISTRY Hold Gel Top SPECIMEN DISCARDED AFTER 1 WEEK ()?? 03/27/2024 16:43 ? URINE OTHER Est Creatinine Clearance 104.42 mL/min ()?? 03/28/2024 08:42 ? _35 minutes spent on discharge * Steve Ocampo RN: PERFORM Event Display: Patient Education/Instruction Authored Date: [id number] Inpatient Adult Discharge Instructions. [address] [address] Name: JUAN DREW : 2000?? Visit: 03/27/2024 14:16?? Current Date: 03/28/2024 15:29 ?? Account: [id number]?? Inpatient Adult Discharge Instructions We would like to thank you for allowing us to assist you with your healthcare needs. The following includes patient education materials and information regarding your injury/illness. Our entire staffstrives to provide an excellent experience for our patients and their families. PLEASE ENSURE YOU FOLLOW-UP PER THE INSTRUCTIONS BELOW! ?? YOUR OPINION IS IMPORTANT TO US! Please complete the survey you may receive by mail or email. Your feedback will be used to make improvements to the healthcare experiences of our patients and their families. Surveys are administered by [employer] ?? If further treatment with your primary care physician or another doctor is recommended, it is important for you to keep the appointment. Call your primary care physician or return to the Emergency Department immediately if your condition worsens, fails to improve, or new symptoms develop. If you need to find a doctor, you can call [facility] [employer] [facility] for a referral at [phone] or toll free at [phone]) or log in to [email or web address].. ?? [facility], in keeping with [facility] guidance, no longer requires face masks for staff, patientsor visitors in most situations. Similiar to time spent indoors at other locations, there is the chance that you were exposed to repiratory viruses during your time with us (such as flu or COVID-19). If you develop symptoms concerning for a viral respiratory infection, please seek testing (and treatment if indicated) from your medical provider or home test kit. ?? You can view and manage your care through the patient portal or by using a health care mark of your choosing. [employer] is a website that allows you to securely view your medical information including your hospital discharge summary, office visit summaries, medications and follow-up visits. You can also request appointments, renew medications, and request access to your medical information using a health care mark of your choosing, or just ask a question. You can enroll at [email or web address] or register during your next office visit. You have been discharged from [facility], Patient Care Unit: D3B??. If you have any questions regarding these instructions, including results of studies pending, afteryou leave, please call us and we will be happy to assist you 10/11. [facility] Your Care Team Attending Physician Kalpana Mercado MD?? Consulting Providers Kalpana Mercado MD?? Discharging Providers Kalpana Mercado MD Reason for Your Visit from home, 3 days ago c/o right ear pain felt a pop, went to urgent care, told she has an ear infection; has been on doxycycline and has not been able to tolerate PO for 3 days; 4mg zofran #20 lac?? 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 You may have had other tests and procedures not included in this list. Please discuss all test results with your provider. Basic Metabolic Panel Blood Culture Blood Culture #2 Blood Culture 2 Results Blood Culture Result CBC CBC w/ Differential CRP ESR HOLD BLUE TUBE HOLD GEL TUBE HOLD LAVENDER TUBE Serum Quantitative CT Temp Bones W/ Contrast Basic Metabolic Panel?? Beta HCG Serum (Females Only) ( Serum Quantitative)?? Blood Culture?? Blood Culture #2?? Blood Culture 2 Results?? Blood Culture Result?? C Reactive Protein (CRP)?? CBC?? CBC w/ Differential?? CT Temp Bones W/ Contrast?? Hold Blue Top Tube (HOLD BLUE TUBE)?? Hold Gel Top Tube (HOLD GEL TUBE)?? Hold Lavender Top Tube (HOLD LAVENDER TUBE)?? Sedimentation Rate (ESR)?? Wound Superficial Culture W/ Gram Smear?? Primary Care Provider Eliazar Dorsey MD? Advance Directive Health Care Proxy on File Yes - Health Care Proxy Patient has a Designated Caregiver: No Discharge Vitals Temperature: 98.4 DegF Height: 173 cm Pulse Rate: 81 bpm Weight: 61.8 kg Respiratory Rate: 20 br/min Body Mass Index: 20.65 kg/m2 Systolic Blood Pressure: 128 mm Hg Body surface area: 1.72 Diastolic Blood Pressure: 77 mm Hg ?? Oxygen Saturation: 99 % ?? Studies Pending All studies ordered during this hospital stay have been completed unless listed below. Please discuss all pending results with your provider listed above in these instructions. ?? Wound Superficial Culture W/ Gram Smear?? What to do next Instructions From Your Doctor ?? Orders? 03/28/24 15:18:00 EST?? Prescriptions??, ??03/28/24 15:18:00 EST?? You Need to Schedule the Following Appointments Follow Up with??Candie PEDRAZA, Mimi Zavala When:??Within Within one week Where: [address] [place] [address] [facility] [address] Follow Up with??Eliazar Dorsey MD Discharge Medications JUAN DREW :2000 Visit Date:03/27/2024 Medications: Please continue your medications until treatment is completed or stopped by your provider. Medications not listed below should be discontinued. Discuss any questions related to medications with your provider. What How Much When Instructions Next Dose New Acetaminophen (acetaminophen 325 mg oral tablet) 975 Milligram Oral Every 6 hours as needed for Pain , Mild Temperature Greater than 100.5 ?? As Needed New Ibuprofen (ibuprofen 600 mg oral tablet) 600 Milligram Oral 3 times a day as needed for Pain , Mild As Needed New Oxycodone (oxyCODONE 5 mg oral tablet) 5 Milligram Oral Every 6 hours as needed for Pain , Severe Duration: 3 Days Pickup at [facility] 3 As Needed Unchanged Albuterol (Ventolin HFA 108 mcg/ inh inhalation aerosol with adapter) 1 puff(s) Inhalation Every 6 hours as needed for for wheezing As Needed Unchanged BuPROpion (buPROPion 100 mg oral tablet) 1 tab(s) Oral Daily 03/29/24 AM Unchanged BusPIRone (busPIRone 5 mg oral tablet) 0.5 tab(s) Oral Daily 03/29/24 AM Unchanged Ciprofloxacin-Hydrocortisone Otic (ciprofloxacin-hydrocortisone 0.2%- 1% otic suspension) See instructions 3 drops affected ear, Both 2 times a day 10 days ?? Pickup at [place] [address] 03/28/24 PM Unchanged Ethinyl Estradiol-Norgestimate (ethinyl estradiol-norgestimate 35 mcg- 0.25 mg oral tablet) 1 tab(s) Oral Daily 03/29/24 AM Unchanged Levofloxacin (levoFLOXacin 500 mg oral tablet) 1 tab(s) Oral Every 24 hours Duration: 5 Days Pickup at [place] [address] 03/29/24 AM Pharmacy Information [facility] 3: [address] [place] [address] [phone] ?? What How Much When Comments Stop Taking Azithromycin (Azithromycin 5 Day Dose Pack 250 mg oral tablet) 1 pack/packet Oral Once Stop Taking Azithromycin (Zithromax 250 mg oral tablet) 1 pack/packet Oral Once Stop Taking Doxycycline (doxycycline hyclate 100 mg oral tablet) 1 tab(s) Oral Twice a day Prescription Given During Visit Ciprofloxacin-Hydrocortisone Otic (ciprofloxacin-hydrocortisone 0.2%-1% otic suspension) - , # 10 mL, 0 Refills, 3 drops affected ear, Both 2 times a day 10 days, [facility] [address] [address] [phone]?? Levofloxacin (levoFLOXacin 500 mg oral tablet) - 1 tablet = 500 mg, By Mouth, Every 24 hours, # 5 tablet, 0 Refills, [facility], [address] [place] [id number] [phone]?? Oxycodone (oxyCODONE 5 mg oral tablet) - 5 mg, By Mouth, Every 6 hours, # 20 tablet, 0 Refills, [facility], [address] [place] [address] [phone]?? Laboratory Results Below is a partial list of the most recent Laboratory test results done prior to this discharge. You may have had other tests and procedures not included in this list. Please discuss all test resultswith your provider. Est Creatinine Clearance - 104.42 mL/min (03/28/2024) Basic Metabolic Panel (03/28/2024) ???Sodium - 137 mmol/L???Potassium - 3.4 mmol/L???Chloride - 102 mmol/L???Bicarbonate Level - 21 mmol/L???Anion Gap - 14???Glucose Level - 145 mg/dL???BUN - 7 mg/dL???Creatinine-Blood - 0.80 mg/dL???Estimated GFR Creatinine - 105 ML/MIN/1.73 M2???Calcium - 8.6 mg/dL Blood Culture (03/27/2024) ???Blood Culture Results - Preliminary report???Blood Culture Specimen Source - BLOOD Blood Culture #2 (03/27/2024) ???Blood Cult 2 Results - Preliminary report???Blood Culture 2 Specimen Source - BLOOD Blood Culture 2 Results (03/27/2024) ???Blood Culture 2 Isolate 1 - Comment Blood Culture Result (03/27/2024) ???Blood Culture Isolate 1 - Comment CBC (03/28/2024) ???WBC - 7.3 k/mm3???RBC - 3.99 m/mm3???Hgb - 11.8 Gm/dL???Hct - 36.4 %???MCV - 91.2 femtoliters???MCH - 29.6 pg???MCHC - 32.4 Gm/dL???Platelet Count - 159 k/mm3???RDW-SD - 44.0 femtoliters???MPV - 9.7 femtoliters???Nucleated RBC (Automated) - 0.0 #/100 WBC'S???Abs. NRBC - 0.0 k/mm3 CBC w/ Differential (03/27/2024) ???WBC - 11.8 k/mm3???RBC - 4.22 m/mm3???Hgb - 12.5 Gm/dL???Hct - 38.0 %???MCV - 90.0 femtoliters???MCH - 29.6 pg???MCHC - 32.9 Gm/dL???Platelet Count - 193 k/mm3???RDW-SD - 42.7 femtoliters???MPV - 9.9 femtoliters???Nucleated RBC (Automated) - 0.0 #/100 WBC'S???Abs. NRBC - 0.0 k/mm3???Abs. Neut - 8.8 k/mm3???Abs. Lymph - 1.6 k/mm3???Abs. [place] - 1.1 k/mm3???Abs. Eo - 0.3 k/mm3???Abs. Baso - 0.0 k/mm3???Neut % - 74.7 %???Lymph % - 13.6 %???[place] % - 8.9 %???Eos % - 2.2 %???Baso % - 0.3 %???Imm Gran - 0.3 %???Abs. Imm Gran - 0.0 k/mm3 CRP (03/27/2024) ???C-Reactive Protein - 22.9 mg/dL ESR (03/27/2024) ???Sed Rate - 43 mm/hr HOLD BLUE TUBE (03/27/2024) ???Hold Blue Top - SPECIMEN DISCARDED AFTER 4 HOURS. HOLD GEL TUBE (03/27/2024) ???Hold Gel Top - SPECIMEN DISCARDED AFTER 1 WEEK HOLD LAVENDER TUBE (03/27/2024) ???Hold Lavender Top - SPECIMEN DISCARDED AFTER 24 HOURS. Serum Quantitative (03/27/2024) ? ?Blood - <1 mIU/mL You will be contacted within 72 hours with your results. Allergies (NKA means No Known Allergies) Keflex amoxicillin Problems Active Problems??(6) Anxiety?? 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 Exercise-induced asthma?? Family history of pancreatic cancer?? Heavy menses?? History of cellulitis?? Education Materials Below is the list of Educational Leaflet Providered with your Discharge Instructions. Valuables and Belongings I fully understand and agree that [facility] accepts no responsibility for all my personal property including clothing, toilet articles, radios, jewelry, dentures, hearing aids, rings, money, or any other property that is in my possession or is brought to me after admission. I understand certain valuables may be placed in a hospital safe for a short period of time. I understand that the hospital is not liable for loss or damage due to accident, fire, or other natural occurrence while said property is in the safe. I accept full responsibility for any personal property that I keep with me, and will not hold the hospital responsible in case of loss or disappearance. I acknowledge that i have been encouraged to send valuables and belongings home. ?? No Valuables/Belongings: No valuables/belongings present Review of Valuable and Belonging List: With patient Date for Pt to Sign Valuables/Belongings: 03/27/24 22:30:00 ?? Other Discharge Information ? Pulmonary Rehab Status?? Pulmonary Rehab Discharge Status?? Respiratory Rate: 20 br/min ? Common Emergency Awareness Tips IS IT A STROKE? Act FAST and Check for these signs: FACE Does the face look uneven? ARM Does one arm drift down? SPEECH Does their speech sound strange? TIME Call at any sign of stroke ?? Heart Attack Signs Chest discomfort: Most heart attacks involve discomfort in the center of the chest and lasts more than a few minutes, or goes away and comes back. It can feel like uncomfortable pressure, squeezing, fullness or pain. Discomfort in upper body: Symptoms can include pain or discomfort in one or both arms, back, neck, jaw or stomach. Shortness of breath: With or without discomfort. Other signs: Breaking out in a cold sweat, nausea, or lightheaded. Remember, MINUTES DO MATTER. If you experience any of these heart attack warning signs, call to get immediate medical attention! ?? Smoking can increase your chances of developing chronic health problems and can cause harmful effects to other family members in your house. If you smoke, you are strongly encouraged to quit. Please call [employer] at [phone] or [phone] ([phone]) or log in to [email or web address] for referrals to smoking cessation programs. ?? 988 Suicide & Crisis Lifeline is available 10/11 if you or someone you know needs to find a reason to keep living. By calling 988 you'll be connected to a skilled, trained counselor at a crisis center in your area. INPATIENT DISCHARGE INSTRUCTIONS SIGNATURE PAGE JUAN DREW [facility] [facility] Registration Date and Time:03/27/2024 14:16 EST Primary Care Physician: Eliazar Dorsey MD, Attending Physician: Maximiliano Mercado MDha, I JUAN DREW, have received the above patient education materials/instructions and have verbalized understanding. If ambulance or transport services are being used I further acknowledge being given a choice of service. ?? If you need to contact me, please call me at this number: . Patient/Auger Machine Offbearer Name: Patient/Auger Machine Offbearer Signature: Relationship to Patient: Witness Name/Signature: Date: * Steve Ocampo RN: PERFORM Event Display: Patient Education Leaflets Authored Date: [id number] Oxycodone ?? [id number] Oxycodone Brand Name(s): Oxaydo??, Oxycontin??, Roxicodone??, Roxybond??, Xtampza?? ER, Combunox?? (as a combination product containing Ibuprofen, Oxycodone), Narvox?? (as a combination product containing Acetaminophen, Oxycodone), Oxycet?? (as a combination product containing Acetaminophen, Oxycodone), Percocet?? (as a combination product containing Acetaminophen, Oxycodone), Percodan?? (as a combination product containing Aspirin, Oxycodone), Roxicet?? (as a combination product containing Acetaminophen, Oxycodone), Roxilox?? (as a combination product containing Acetaminophen, Oxycodone), Roxiprin?? (as a combination product containing Aspirin, Oxycodone), Targiniq?? ER (as a combination product containing naloxone, oxycodone), Troxyca ER?? (as a combination product containing Naltrexone, Oxycodone), Tylox?? (as a combination product containing Acetaminophen, Oxycodone), Xartemis XR?? (as a combination product containing Acetaminophen, Oxycodone); also available generically ?? IMPORTANT WARNING: Oxycodone may be habit-forming. Take oxycodone exactly as directed. Do not take more of it, take itmore often, or take it in a different way than directed by your doctor. While taking oxycodone, discuss with your healthcare provider your pain treatment goals, length of treatment, and other ways tomanage your pain. Tell your doctor if you or anyone in your family drinks or has ever drunk large amounts of alcohol, uses or has ever used street drugs, or has overused prescription medications, or has had an overdose, or if you have or have ever had depression or another mental illness. There is a greater risk that you will overuse oxycodone if you have or have ever had any of these conditions.Talk to your healthcare provider immediately and ask for guidance if you think that you have an opioid addiction or call the U.[place]. Substance Abuse and Mental Health Services Administration (SAMHSA) National Helpline at 1-721-345-HELP. Oxycodone may cause serious or life-threatening breathing problems, especially during the first 24 to 72 hours of your treatment and any time your dose is increased. Your doctor will monitor you carefully during your treatment. Tell your doctor if you have or have ever had slowed breathing or asthma. Your doctor will probably tell you not to take oxycodone. Also tell your doctor if you have or have ever had lung disease such as chronic obstructive pulmonary disease (COPD; a group of diseases that affect the lungs and airways), a head injury a brain tumor, or any condition that increases the amount of pressure in your brain. The risk that you will develop breathing problems may be higher if you are an older adult or are weak or malnourished due to disease. If you experience any of the following symptoms, call your doctor immediately or get emergency medical treatment: slowed breathing, long pauses between breaths, or shortness of breath. Do not allow anyone else to take your medication. Oxycodone may harm or cause to other peoplewho take your medication, especially children. Keep oxycodone in a safe place so that no one else can take it accidentally or on purpose. Be especially careful to keep oxycodone out of the reach of children. Keep track of how many capsules, tablets, or oral solution is left so you will know if any medication is missing. Taking certain other medications with oxycodone may increase the risk of serious or life-threatening breathing problems, sedation, or coma. Tell your doctor and pharmacist what other prescription andnonprescription medications, vitamins, nutritional supplements, and herbal products you are taking or plan to take. Your doctor may need to change the doses of your medication and will monitor you carefully. If you take oxycodone with other medications and you develop any of the following symptoms,call your doctor immediately or seek emergency medical care: unusual dizziness, lightheadedness, extreme sleepiness, slowed or difficult breathing, or unresponsiveness. Be sure that your caregiver orfamily members know which symptoms may be serious so they can call the doctor or emergency medical care if you are unable to seek treatment on your own. Drinking alcohol, taking prescription or nonprescription medications that contain alcohol, or usingstreet drugs during your treatment with oxycodone increases the risk that you will experience serious, life-threatening side effects. Do not drink alcohol, take prescription or nonprescription medications that contain alcohol, or use street drugs during your treatment. If you are taking the oxycodone extended-release tablets, swallow them whole; do not chew, break, divide, crush, or dissolve them. Do not presoak, lick or otherwise wet the tablet prior to placing inthe mouth. Swallow each tablet right after you put it in your mouth. If you swallow broken, chewed,crushed, or dissolved extended-release tablets, you may receive too much oxycodone at once instead of slowly over 12 hours. This may cause serious problems, including overdose and . Oxycodone comes as a regular solution (liquid) and as a concentrated solution that contains more oxycodone in each milliliter of solution. Be sure that you know whether your doctor has prescribed theregular or concentrated solution and the dose in milliliters that your doctor has prescribed. Use the dosing cup, oral syringe, or dropper provided with your medication to carefully measure the number of milliliters of solution that your doctor prescribed. Read the directions that come with your medication carefully and ask your doctor or pharmacist if you have any questions about how to measure your dose or how much medication you should take. You may experience serious or life threatening side effects if you take an oxycodone solution with a different concentration or if you take a different amount of medication than prescribed by your doctor. Store oxycodone in a safe place so that no one else can take it accidentally or on purpose. Be especially careful to keep oxycodone out of the reach of children. Keep track of how many tablets or capsules, or how much liquid is left so you will know if any medication is missing. Dispose of unwantedcapsules, tablets, extended-release tablets, extended-release capsules, and liquid properly according to instructions. (See STORAGE and DISPOSAL). Tell your doctor if you are or plan to become . If you take oxycodone regularly during your , your baby may experience life- threatening withdrawal symptoms after . Tellyour baby's doctor right away if your baby experiences any of the following symptoms: irritability, hyperactivity, abnormal sleep, high-pitched cry, uncontrollable shaking of a part of the body, vomiting, diarrhea, or failure to gain weight. Talk to your doctor about the risks of taking oxycodone. Your doctor or pharmacist will give you the web content coordinator's patient information sheet (Medication Guide) when you begin your treatment with oxycodone and each time you fill your prescription. Read theinformation carefully and ask your doctor or pharmacist if you have any questions. You can also visit the Food and Drug Administration (FDA) website (https://www.fda.gov/Drugs/DrugSafety/kuc053885.htm) or the web content coordinator's website to obtain the Medication Guide. WHY is this medicine prescribed? Oxycodone immediate-release tablets, capsules, and oral solution are used to relieve severe, acute pain (pain that begins suddenly, has a specific cause, and is expected to go away when the cause of the pain is healed) in people who are expected to need an opioid pain medication and who cannot be treated with other pain medications. Oxycodone extended-release tablets and extended-release capsulesare used to relieve severe pain in people who are expected to need pain medication around the clockfor a long time and who cannot be treated with other medications. Oxycodone extended-release tablets and extended-release capsules should not be used to treat pain that can be controlled by medication that is taken as needed. Oxycodone concentrated solution should only be used to treat people who are tolerant (used to the effects of the medication) to opioid medications because they have taken this type of medication for at least one week. Oxycodone is in a class of medications called opiate (narcotic) analgesics. It works by changing the way the brain and nervous system respond to pain. Oxycodone is also available in combination with acetaminophen (Oxycet, Percocet, others) and aspirin (Percodan). This monograph only includes information about the use of oxycodone alone. If you are taking an oxycodone combination product, be sure to read information about all the ingredients in the product you are taking and ask your doctor or pharmacist for more information. HOW should this medicine be used? Oxycodone comes as a solution (liquid), a concentrated solution, a tablet, a capsule, an extended-release (long-acting) tablet (Oxycontin), and an extended- release capsule (Xtampza ER) to take by mouth. The solution, concentrated solution, tablet, and capsule are taken usually with or without food every 4 to 6 hours, either as needed for pain or as regularly scheduled medications. The extended-release tablets (Oxycontin) are taken every 12 hours with or without food. The extended-release capsules (Xtampza ER) are taken every 12 hours with food; eat the same amount of food with each dose. Follow the directions on your prescription label carefully, and ask your doctor or pharmacist to explainany part you do not understand. Take oxycodone exactly as directed. If you are taking the extended-release tablets (Oxycontin), swallow the tablets one at a time with plenty of water. Swallow the tablet or right after putting it in your mouth. Do not presoak, wet, orlick the tablets before you put them in your mouth. Do not chew or crush extended-release tablets. If you have trouble swallowing extended-release capsules (Xtampza ER), you can carefully open the capsule and sprinkle the contents on soft foods such as applesauce, pudding, yogurt, ice cream, or jam, then consume the mixture immediately. Dispose of the empty capsule shells right away by flushing them down a toilet. Do not store the mixture for future use. If you have a feeding tube, the extended-release capsule contents can be poured into the tube. Ask your doctor how you should take the medication and follow these directions carefully. Your doctor may adjust your dose of oxycodone during your treatment, depending on how well your pain is controlled and on the side effects that you experience. Talk to your doctor about how you are feeling during your treatment with oxycodone. Tell your doctor if you feel that your pain is not controlled or if your pain increases, becomes worse, or if you have new pain or an increased sensitivityto pain during your treatment with oxycodone. Do not take more of it or take it more often than prescribed by your doctor. Do not stop taking oxycodone without talking to your doctor. If you stop taking oxycodone suddenly,you may experience withdrawal symptoms such as restlessness, watery eyes, runny nose, sneezing, yawning, sweating, chills, muscle or joint aches or pains, weakness, irritability, anxiety, depression,difficulty falling asleep or staying asleep, cramps, nausea, vomiting, diarrhea, loss of appetite, fast heartbeat, and fast breathing. Your doctor will probably decrease your dose gradually. Are there OTHER USES for this medicine? This medication may be prescribed for other uses; ask your doctor or pharmacist for more information. What SPECIAL PRECAUTIONS should I follow? Before taking oxycodone, ??? tell your doctor and pharmacist if you are allergic to oxycodone, any other medications, or anyof the ingredients in the oxycodone product you plan to take. Ask your pharmacist or check the Medication Guide for a list of the ingredients. ??? tell your doctor or pharmacist if you are taking thefollowing medications or have stopped taking them within the past two weeks: isocarboxazid (Marplan), linezolid (Zyvox), methylene blue, phenelzine (Nardil), selegiline (Emsam, Zelapar), or tranylcypromine (Parnate). ??? The following nonprescription or herbal products may interact with oxycodone: Rubens's wort and tryptophan. Be sure to let your doctor and pharmacist know that you are taking these medications before you start taking oxycodone. Do not start these medications while taking oxycodone without discussing it with your healthcare provider. ??? tell your doctor if you have or have ever had any of the conditions mentioned in the IMPORTANT WARNING section, a blockage or narrowing of your stomach or intestines, or paralytic ileus (condition in which digested food does not move through the intestines). Your doctor may tell you not to take oxycodone. ??? Also tell your doctor if you have or have ever had low blood pressure; seizures; adrenal insufficiency (condition in which theadrenal glands do not produce enough of certain hormones needed for important body functions); seizures; urethral stricture (blockage of the tube that allows urine to leave the body), problems urinating; or heart, kidney, liver, pancreas, thyroid, or gall bladder disease. If you will be taking the extended-release tablets or extended-release capsules, also tell your doctor if you have or have ever had difficulty swallowing, diverticulitis (condition in which small pouches form in the intestinesand become swollen and infected), colon cancer (cancer that begins in the large intestine), or esophageal cancer (cancer that begins in the tube that connects the mouth and stomach). ??? tell your doctor if you are . You should not breastfeed while you are taking oxycodone. Oxycodone can cause shallow breathing, difficulty or noisy breathing, confusion, more than usual sleepiness, trouble , or limpness in breastfed infants. ??? you should know that this medication may decrease fertility in men and women. Talk to your doctor about the risks of taking oxycodone. ??? ifyou are having surgery, including dental surgery, tell the doctor or dentist that you are taking oxycodone. ??? you should know that this medication may make you drowsy. Do not drive a car, operate heavy machinery, or participate in any other possibly dangerous activities until you know how this medication affects you. ??? you should know that oxycodone may cause dizziness, lightheadedness, and fa inting when you get up too quickly from a lying position. To help avoid this problem, get out of bed slowly, resting your feet on the floor for a few minutes before standing up. ??? you should know that oxycodone may cause constipation. Talk to your doctor about changing your diet or using other medications to prevent or treat constipation while you are taking oxycodone. What SPECIAL DIETARY instructions should I follow? Unless your doctor tells you otherwise, continue your normal diet. What should I do IF I FORGET to take a dose? If you are taking oxycodone on a regular schedule, take the missed dose as soon as you remember it.However, if it is almost time for the next dose, skip the missed dose and continue your regular dosing schedule. Do not take a double dose to make up for a missed one. Do not take more than one dose of the extended- release tablets or capsules in 12 hours. What SIDE EFFECTS can this medicine cause? Oxycodone may cause side effects. Tell your doctor if any of these symptoms, are severe or do not go away: ??? dry mouth ??? stomach pain ??? drowsiness ??? flushing ??? headache ??? mood changes Some side effects can be serious. If you experience any of these symptoms or those mentioned in theIMPORTANT WARNING section, call your doctor immediately or get emergency medical help: ??? changes in heartbeat ??? agitation, hallucinations (seeing things or hearing voices that do notexist), fever, sweating, confusion, fast heartbeat, shivering, severe muscle stiffness or twitching, loss of coordination, or diarrhea ??? nausea, vomiting, loss of appetite, weakness, or dizziness ??? inability to get or keep an erection ??? irregular menstruation ??? decreased sexual desire ??? chest pain ??? rash; itching; hives; hoarseness; difficulty breathing or swallowing; or swelling of the face, mouth, tongue, lips, or throat ??? swelling of the hands, feet, ankles, or lower legs ??? seizures ??? extreme drowsiness If you experience a serious side effect, you or your doctor may send a report to the Food and Drug Administration's (FDA) MedWatch Adverse Event Reporting program online (https://www.fda.gov/Safety/MedWatch) or by phone ( ). Oxycodone may cause other side effects. Call your doctor if you have any unusual problems while youare taking this medication. What should I know about STORAGE and DISPOSAL of this medication? Keep this medication in the container it came in, tightly closed, and out of reach of children, andin a location that is not easily accessible by others, including visitors to the home. Store it at room temperature and away from light and excess heat and moisture (not in the bathroom). You must immediately dispose of any medication that is outdated or no longer needed through a medicine take-back program. If you do not have a take-back program nearby or one that you can access promptly, flush any medication that is outdated or no longer needed down the toilet so that others will not take it.Talk to your pharmacist about the proper disposal of your medication. It is important to keep all medication out of sight and reach of children as many containers (such as weekly pill minders and those for eye drops, creams, patches, and inhalers) are not child-resistant and young children can open them easily. To protect young children from poisoning, always lock safety caps and immediately place the medication in a safe location ??? one that is up and away and out of their sight and reach. https://www.upandaway.org What should I do in case of OVERDOSE? In case of overdose, call the poison control helpline at . Information is also available online at https://www.poisonhelp.org/help. If the victim has collapsed, had a seizure, has trouble breathing, or can't be awakened, immediately call emergency services at 911. While taking oxycodone, you should talk to your doctor about having a rescue medication called naloxone readily available (e.g., home, office). Naloxone is used to reverse the life-threatening effects of an overdose. It works by blocking the effects of opiates to relieve dangerous symptoms caused by high levels of opiates in the blood. Your doctor may also prescribe you naloxone if you are livingin a household where there are small children or someone who has abused street or prescription drugs. You should make sure that you and your family members, caregivers, or the people who spend time with you know how to recognize an overdose, how to use naloxone, and what to do until emergency medical help arrives. Your doctor or pharmacist will show you and your family members how to use the medication. Ask your pharmacist for the instructions or visit the web content coordinator's website to get the instructions. If symptoms of an overdose occur, a caregiver or family member should give the first dose of naloxone, call 911 immediately, and stay with you and watch you closely until emergency medical help arrives.Your symptoms may return within a few minutes after you receive naloxone. If your symptoms return, the person should give you another dose of naloxone. Additional doses may be given every 2 to 3 minutes, if symptoms return before medical help arrives. Symptoms of overdose may include the following: ??? difficulty breathing ??? slowed or shallow breathing ??? excessive sleepiness ??? limp or weak muscles ??? narrowing or widening of the pupils (dark cabazon in the eye) ??? cold, clammy skin ??? unable to respond or wake up ??? slowed heartbeat ??? unusual snoring What OTHER INFORMATION should I know? Keep all appointments with your doctor. Your doctor may order certain lab tests to check your body's response to oxycodone. Before having any laboratory test (especially those that involve methylene blue), tell your doctor and the laboratory personnel that you are taking oxycodone. This prescription is not refillable. If you continue to have pain after you finish the oxycodone, call your doctor. It is important for you to keep a written list of all of the prescription and nonprescription (osdt-ltd-qetwnko) medicines you are taking, as well as any products such as vitamins, minerals, or otherdietary supplements. You should bring this list with you each time you visit a doctor or if you areadmitted to a hospital. It is also important information to carry with you in case of emergencies. This report on medications is for your information only, and is not considered individual patient advice. Because of the changing nature of drug information, please consult your physician or pharmacist about specific clinical use. The [employer] represents that the information provided hereunder was formulated with a reasonable standard of care, and in conformity with professional standards in the field. The [employer] makes no representations or warranties, express or implied, including, but not limited to, any implied warranty of merchantability and/or fitness for a particular purpose, with respect to such information and specifically disclaims all such warranties. Users are advised that decisions regarding drug therapy are complex medical decisions requiring the independent, informed decision of an appropriate health health care assistant, and the information is provided for informational purposes only. The entire monograph for a drug should be reviewed for a thorough understanding of the drug's actions, uses and side effects. The [employer] does not endorse or recommend the use of any drug.The information is not a substitute for medical care. AHFS?? Patient Medication Information???. ?? Copyright, 2023. The [employer]??, [address], [address], [place], [place]. All Rights Reserved. Duplication for commercial use must be authorized by [facility]. Selected Revisions: July 03, 2023. AHFS?? Patient Medication Information???. ?? Copyright, 2023 ?? * Steve Ocampo RN: PERFORM Event Display: Patient Education Leaflets Authored Date: [id number] Ciprofloxacin and Hydrocortisone Otic ?? [id number] Ciprofloxacin and Hydrocortisone Otic Brand Name(s): Cipro?? HC (as a combination product containing Ciprofloxacin, Hydrocortisone) ?? WHY is this medicine prescribed? Ciprofloxacin and hydrocortisone otic is used to treat outer ear infections in adults and children.Ciprofloxacin is in a class of medications called quinolone antibiotics. Hydrocortisone is in a class of medications called corticosteroids. The combination of ciprofloxacin and hydrocortisone works by killing the bacteria that cause infection and reducing swelling in the ear. HOW should this medicine be used? Ciprofloxacin and hydrocortisone otic comes as a suspension (liquid) to place into the ear. It is usually used twice a day, in the morning and evening, for 7 days. Use ciprofloxacin and hydrocortisone otic at around the same times every day. Follow the directions on your prescription label carefully, and ask your doctor or pharmacist to explain any part you do not understand. Use ciprofloxacin and hydrocortisone otic exactly as directed. Do not use more or less of it or use it more often than prescribed by your doctor. Ciprofloxacin and hydrocortisone otic is only for use in the ears. Do not use in the eyes. You should begin to feel better during the first few days of treatment with ciprofloxacin and hydrocortisone otic. If your symptoms do not improve after one week or get worse, call your doctor. Use ciprofloxacin and hydrocortisone otic until you finish the prescription, even if you feel better. If you stop using ciprofloxacin and hydrocortisone otic too soon or skip doses, your infection may not be completely treated and the bacteria may become resistant to antibiotics. To use the eardrops, follow these steps: ??? Hold the bottle in your hand for 1 or 2 minutes to warm the solution. ??? Shake the bottle well. ??? Lie down with the affected ear upward. ??? Place the prescribed number of drops into your ear.??? Be careful not to touch the tip to your ear, fingers, or any other surface. ??? Remain lying down with the affected ear upward for 30-60 seconds. ??? Repeat steps 1-6 for the opposite ear if neces vincent. Are there OTHER USES for this medicine? This medication may be prescribed for other uses; ask your doctor or pharmacist for more information. What SPECIAL PRECAUTIONS should I follow? Before using ciprofloxacin and hydrocortisone otic, ??? tell your doctor and pharmacist if you are allergic to ciprofloxacin (Cipro), hydrocortisone (Cortaid, Cortef, Cortizone, Hytone), cinoxacin (Cinobac) (not available in the [place] enoxacin (Penetrex) (not available in the [place].), gatifloxacin (Tequin) (not available in the [place] gemifloxacin (Fa ctive), levofloxacin (Levaquin), lomefloxacin (Maxaquin), moxifloxacin (Avelox), nalidixic acid (NegGram), norfloxacin (Noroxin), ofloxacin (Floxin), sparfloxacin (Zagam) (not available in the [place].),trovafloxacin and alatrofloxacin combination (Trovan) (not available in the [place].), or any other medications. ??? tell your doctor and pharmacist what prescription and nonprescription medications, vitamins, nutritional supplements, and herbal products you are taking or plan to take. ??? tell your doctor if you have a hole in your ear drum(s) or ear tube(s). Your doctor will tell you not to use this medication. ??? tell your doctor if you are , plan to become , or are breast-feeding. If you become while using ciprofloxacin and hydrocortisone otic, call your doctor. ??? you should know that you must keep your infected ear(s) clean and dry while using ciprofloxacin and hydrocortisone otic. Avoid getting the infected ear(s) wet while bathing, and avoid swimming unless your doctor has told you otherwise. What SPECIAL DIETARY instructions should I follow? Unless your doctor tells you otherwise, continue your normal diet. What should I do IF I FORGET to take a dose? Apply the missed dose as soon as you remember it. However, if it is almost time for the next dose, skip the missed dose and continue your regular dosing schedule. Do not use extra eardrops to make upfor a missed dose. What SIDE EFFECTS can this medicine cause? Ciprofloxacin and hydrocortisone otic may cause side effects. Tell your doctor if the following symptom is severe or does not go away: ??? headache Some side effects can be serious. If you experience any of these symptoms, stop using ciprofloxacinand hydrocortisone otic and call your doctor immediately: ??? rash ??? hives ??? swelling of the face, throat, tongue, lips, eyes, hands, feet, ankles, or lower legs ??? hoarseness ??? difficulty swallowing or breathing Ciprofloxacin and hydrocortisone otic may cause other side effects. Call your doctor if you have any unusual problems while taking this medication. What should I know about STORAGE and DISPOSAL of this medication? Keep this medication in the container it came in, tightly closed, and out of reach of children. Store it at room temperature and away from excess heat and moisture (not in the bathroom). Avoid freezing and protect from light. Unneeded medications should be disposed of in special ways to ensure that pets, children, and otherpeople cannot consume them. However, you should not flush this medication down the toilet. Instead,the best way to dispose of your medication is through a medicine take-back program. Talk to your pharmacist or contact your local garbage/recycling department to learn about take-back programs in your community. See the FDA's Safe Disposal of Medicines website (https://goo.gl/c4Rm4p) for more information if you do not have access to a take-back program. It is important to keep all medication out of sight and reach of children as many containers (such as weekly pill minders and those for eye drops, creams, patches, and inhalers) are not child-resistant and young children can open them easily. To protect young children from poisoning, always lock safety caps and immediately place the medication in a safe location ??? one that is up and away and out of their sight and reach. https://www.upandaway.org What should I do in case of OVERDOSE? If someone swallows ciprofloxacin and hydrocortisone otic, call your local poison control center [phone]. If the victim has collapsed or is not breathing, call local emergency services at 911. What OTHER INFORMATION should I know? Keep all appointments with your doctor. Do not let anyone else use your medication. Your prescription is probably not refillable. It is important for you to keep a written list of all of the prescription and nonprescription ([id number]) medicines you are taking, as well as any products such as vitamins, minerals, or otherdietary supplements. You should bring this list with you each time you visit a doctor or if you areadmitted to a hospital. It is also important information to carry with you in case of emergencies. This report on medications is for your information only, and is not considered individual patient advice. Because of the changing nature of drug information, please consult your physician or pharmacist about specific clinical use. The [employer] represents that the information provided hereunder was formulated with a reasonable standard of care, and in conformity with professional standards in the field. The [employer] makes no representations or warranties, express or implied, including, but not limited to, any implied warranty of merchantability and/or fitness for a particular purpose, with respect to such information and specifically disclaims all such warranties. Users are advised that decisions regarding drug therapy are complex medical decisions requiring the independent, informed decision of an appropriate health health care assistant, and the information is provided for informational purposes only. The entire monograph for a drug should be reviewed for a thorough understanding of the drug's actions, uses and side effects. The [employer] does not endorse or recommend the use of any drug.The information is not a substitute for medical care. AHFS?? Patient Medication Information???. ?? Copyright, 2023. The [employer]??, [address], [address], [place], [place]. All Rights Reserved. Duplication for commercial use must be authorized by [facility]. Selected Revisions: November 01, 2017. AHFS?? Patient Medication Information???. ?? Copyright, 2023 ?? * Steve Ocampo RN: PERFORM Event Display: Patient Education Leaflets Authored Date: [id number] Levofloxacin ?? [id number] Levofloxacin Brand Name(s): Levaquin??; also available generically ?? IMPORTANT WARNING: Taking levofloxacin increases the risk that you will develop tendinitis (swelling of a fibrous tissue that connects a bone to a muscle) or have a tendon rupture (tearing of a fibrous tissue that connects a bone to a muscle) during your treatment or for up to several months afterward. These problemsmay affect tendons in your shoulder, your hand, the back of your ankle, or in other parts of your body. Tendinitis or tendon rupture may happen to people of any age, but the risk is highest in peopleover 60 years of age. Tell your doctor if you have or have ever had a kidney, heart, or lung transplant; kidney disease; a joint or tendon disorder such as rheumatoid arthritis (a condition in which the body attacks its own joints, causing pain, swelling, and loss of function); or if you participate in regular physical activity. Tell your doctor and pharmacist if you are taking oral or injectablesteroids such as dexamethasone, methylprednisolone (Medrol), or prednisone (Caitlin). If you experience any of the following symptoms of tendinitis, stop taking levofloxacin, rest, and call your doctorimmediately: pain, swelling, tenderness, stiffness, or difficulty in moving a muscle. If you experience any of the following symptoms of tendon rupture, stop taking levofloxacin and get emergency medical treatment: hearing or feeling a snap or pop in a tendon area, bruising after an injury to a tendon area, or inability to move or bear weight on an affected area. Taking levofloxacin may cause changes in sensation and nerve damage that may not go away even afteryou stop taking levofloxacin. This damage may occur soon after you begin taking levofloxacin. Tell your doctor if you have ever had peripheral neuropathy (a type of nerve damage that causes tingling,numbness, and pain in the hands and feet). If you experience any of the following symptoms, stop kings ing levofloxacin and call your doctor immediately: numbness, tingling, pain, burning, or weakness in the arms or legs; or a change in your ability to feel light touch, vibrations, pain, heat, or cold. Taking levofloxacin may affect your brain or nervous system and cause serious side effects. This can occur after the first dose of levofloxacin. Tell your doctor if you have or have ever had seizures, epilepsy, cerebral arteriosclerosis (narrowing of blood vessels in or near the brain that can lead to stroke or ministroke), stroke, changed brain structure, or kidney disease. If you experience anyof the following symptoms, stop taking levofloxacin and call your doctor immediately: seizures; tremors; dizziness; lightheadedness; headaches that won't go away (with or without blurred vision); difficulty falling asleep or staying asleep; nightmares; not trusting others or feeling that others want to hurt you; hallucinations (seeing things or hearing voices that do not exist); thoughts or actions towards hurting or killing yourself; feeling restless, anxious, nervous, depressed, memory problems, or confused, or other changes in your mood or behavior. Taking levofloxacin may worsen muscle weakness in people with myasthenia gravis (a disorder of the nervous system that causes muscle weakness) and cause severe difficulty breathing or . Tell your doctor if you have myasthenia gravis. Your doctor may tell you not to take levofloxacin. If you have myasthenia gravis and your doctor tells you that you should take levofloxacin, call your doctor im mediately if you experience muscle weakness or difficulty breathing during your treatment. Talk to your doctor about the risks of taking levofloxacin. Your doctor or pharmacist will give you the web content coordinator's patient information sheet (Medication Guide) when you begin treatment with levofloxacin. Read the information carefully and ask your doctor or pharmacist if you have any questions. You can also visit the Food and Drug Administration (FDA) website (https://www.fda.gov/Drugs) or the web content coordinator's website to obtain the Medication Guide. WHY is this medicine prescribed? Levofloxacin is used to treat certain infections such as pneumonia, and kidney, prostate (a male reproductive gland), and skin infections. Levofloxacin is also used to prevent anthrax (a serious infection that may be spread on purpose as part of a bioterror attack) in people who may have been exposed to anthrax germs in the air, and treat and prevent plague (a serious infection that may be spread on purpose as part of a bioterror attack. Levofloxacin may also be used to treat bronchitis, sinus infections, or urinary tract infections but should not be used for bronchitis and certain types of urinary tract infections if there are other treatment options available. Levofloxacin is in a class of antibiotics called fluoroquinolones. It works by killing bacteria that cause infections. Antibiotics such as levofloxacin will not work for colds, flu, or other viral infections. Using antibiotics when they are not needed increases your risk of getting an infection later that resists antibiotic treatment. HOW should this medicine be used? Levofloxacin comes as a tablet and a solution (liquid) to take by mouth. It is usually taken once aday. The length of your treatment depends on the type of infection you have. Your doctor will tell you how long to take levofloxacin. The tablet may be taken with or without food. The solution shouldbe taken 1 hour before or 2 hours after eating. Take levofloxacin at around the same time every day. Follow the directions on your prescription label carefully, and ask your doctor or pharmacist to explain any part you do not understand. Take levofloxacin exactly as directed. Do not take more or less of it or take it more often than prescribed by your doctor. You should begin to feel better during the first few days of treatment with levofloxacin. If your symptoms do not improve or if they get worse, call your doctor. Take levofloxacin until you finish the prescription, even if you feel better. Do not stop taking levofloxacin without talking to your doctor unless you experience certain serious side effects listed in the IMPORTANT WARNING or SIDE EFFECTS sections. If you stop taking levofloxacin too soon or skip doses, your infection may not be completely treated and the bacteria may become resistant to antibiotics. Are there OTHER USES for this medicine? Levofloxacin is also sometimes used to treat endocarditis (infection of the heart lining and valves), certain sexually transmitted diseases, salmonella (an infection that causes severe diarrhea), shigella (an infection that causes severe diarrhea), inhalation anthrax (a serious infection that may be spread by anthrax germs in the air on purpose as part of a bioterror attack), and tuberculosis (TB). Levofloxacin is also sometimes used to prevent or treat traveler's diarrhea. Talk to your doctor about the risks of using this medication for your condition. This medication may be prescribed for other uses; ask your doctor or pharmacist for more information. What SPECIAL PRECAUTIONS should I follow? Before taking levofloxacin, ??? tell your doctor and pharmacist if you are allergic or have had a severe reaction to levofloxacin; any other quinolone or fluoroquinolone antibiotic such as ciprofloxacin (Cipro), delafloxacin (Baxdela), gemifloxacin (Factive), moxifloxacin (Avelox), and ofloxacin, or any other medications, or if you are allergic to any of the ingredients in levofloxacin preparations. Ask your pharmacist or check the Medication Guide for a list of the ingredients. ??? tell your doctor and pharmacist what other prescription and nonprescription medications, vitamins, nutritional supplements, and herbal products you are taking or plan to take while taking levofloxacin. Your doctor may need to change the doses of your medications or monitor you carefully for side effects. ??? if you are taking antacids containing aluminum hydroxide or magnesium hydroxide (Maalox, Mylanta, others), or certain medicationssuch as didanosine (Videx) solution, sucralfate (Carafate), or vitamin or mineral supplements that contain iron or zinc, take these medications at least 2 hours before or after you take levofloxacin.??? the following nonprescription products may interact with levofloxacin: nonsteroidal anti-inflammatory drugs (NSAIDS) such as ibuprofen (Advil, Motrin, others) and naproxen (Aleve). Be sure to letyour doctor and pharmacist know that you are taking these medications before you start taking levofloxacin. Do not start any of these medications while taking levofloxacin without discussing with your healthcare provider. ??? tell your doctor if you or anyone in your family has or has ever had a prolonged QT interval (a rare heart problem that may cause irregular heartbeat, fainting, or sudden ). Tell your doctor if you have or ever have had a slow or irregular heartbeat, a recent heart attack, an aortic aneurysm (swelling of the large artery that carries blood from the heart to the body), high blood pressure, peripheral vascular disease (poor circulation in the blood vessels), Marfan syndrome (a genetic condition that can affect the heart, eyes, blood vessels and bones), Chicho-Danlos syndrome (a genetic condition that can affect skin, joints, or blood vessels), or if you have a low level of potassium or magnesium in your blood. Also tell your doctor if you have or have ever haddiabetes or problems with low blood sugar or liver disease. ??? tell your doctor if you are , plan to become , or are . If you become while taking levofloxacin, call your doctor. ??? do not drive a car, operate machinery, or participate in activities requiring alertness or coordination until you know how this medication affects you. ??? plan to avoid unnecessary or prolonged exposure to sunlight or ultraviolet light (tanning beds and sunlamps) and to wear protective clothing, sunglasses, and sunscreen. Levofloxacin may make your skin sensitive to sunlightor ultraviolet light. If your skin becomes reddened, swollen, or blistered, like a bad sunburn, call your doctor. What SPECIAL DIETARY instructions should I follow? Make sure you drink plenty of water or other fluids every day while you are taking levofloxacin. What should I do IF I FORGET to take a dose? Take the missed dose as soon as you remember it. However, if it is almost time for the next dose, skip the missed dose and continue your regular dosing schedule. Do not take a double dose to make up for a missed one. What SIDE EFFECTS can this medicine cause? Levofloxacin may cause side effects. Tell your doctor if any of these symptoms are severe or do notgo away: ??? nausea ??? vomiting ??? diarrhea ??? stomach pain ??? constipation ??? heartburn ??? vaginal itching and/or discharge If you experience any of the following symptoms, or any of the symptoms described in the IMPORTANT WARNING section, stop taking levofloxacin and call your doctor immediately or get emergency medical help: ??? severe diarrhea (watery or bloody stools) that may occur with or without fever and stomach cramps (may occur up to 2 months or more after your treatment) ??? rash ??? hives ??? itching ??? peeling or blistering of the skin ??? fever ??? swelling of the eyes, face, mouth. lips, tongue, throat, hands, feet, ankles or lower legs ??? hoarseness or throat tightness ??? ongoing or worsening cough ??? difficulty breathing or swallowing ??? extreme thirst or hunger; pale skin; feeling shaky or trembling; fast or fluttering heartbeat; sweating; frequent urination; trembling; blurred vision; or unusual anxiety ??? fainting or loss of consciousness ??? yellowing of the skin or eyes; pale skin; dark urine; or light colored stool ??? seizures ??? unusual bruising or bleeding ??? sudden pain in thechest, stomach, or back Levofloxacin may cause problems with bones, joints, and tissues around joints in children. Levofloxacin should not normally be given to children younger than 18 years of age unless they have plague or have been exposed to plague or anthrax in the air. If your doctor prescribes levofloxacin for yourchild, be sure to tell the doctor if your child has or has ever had joint-related problems. Call your doctor if your child develops joint problems, such as pain or swelling, while taking levofloxacinor after treatment with levofloxacin. Talk to your doctor about the risks of taking levofloxacin or giving levofloxacin to your child. Levofloxacin may cause other side effects. Call your doctor if you have any unusual problems while taking this medication. If you experience a serious side effect, you or your doctor may send a report to the Food and Drug Administration's (FDA) MedWatch Adverse Event Reporting program online (https://www.fda.gov/Safety/MedWatch) or by phone ( ). What should I know about STORAGE and DISPOSAL of this medication? Keep this medication in the container it came in, tightly closed, and out of reach of children. Store it at room temperature and away from excess heat and moisture (not in the bathroom). It is important to keep all medication out of sight and reach of children as many containers (such as weekly pill minders and those for eye drops, creams, patches, and inhalers) are not child-resistant and young children can open them easily. To protect young children from poisoning, always lock safety caps and immediately place the medication in a safe location ??? one that is up and away and out of their sight and reach. https://www.Buscatucancha.comndOnline [employer]ility.org Unneeded medications should be disposed of in special ways to ensure that pets, children, and otherpeople cannot consume them. However, you should not flush this medication down the toilet. Instead,the best way to dispose of your medication is through a medicine take-back program. Talk to your pharmacist or contact your local garbage/recycling department to learn about take-back programs in your community. See the FDA's Safe Disposal of Medicines website (https://goo.gl/c4Rm4p) for more information if you do not have access to a take-back program. What should I do in case of OVERDOSE? In case of overdose, call the poison control helpline at . Information is also available online at https://www.poisonhelp.org/help. If the victim has collapsed, had a seizure, has trouble breathing, or can't be awakened, immediately call emergency services at 511. What OTHER INFORMATION should I know? Keep all appointments with your doctor and the laboratory. Your doctor may order certain lab tests to check your body's response to levofloxacin. If you have diabetes, your doctor may ask you to check your blood sugar more often while taking levofloxacin. Before having any laboratory test, tell your doctor and the laboratory personnel that you are taking levofloxacin. Do not let anyone else take your medication. Your prescription is probably not refillable. If you still have symptoms of infection after you finish taking levofloxacin, call your doctor. It is important for you to keep a written list of all of the prescription and nonprescription (bjtb-tui-eqhnfky) medicines you are taking, as well as any products such as vitamins, minerals, or otherdietary supplements. You should bring this list with you each time you visit a doctor or if you areadmitted to a hospital. It is also important information to carry with you in case of emergencies. This report on medications is for your information only, and is not considered individual patient advice. Because of the changing nature of drug information, please consult your physician or pharmacist about specific clinical use. The [employer] represents that the information provided hereunder was formulated with a reasonable standard of care, and in conformity with professional standards in the field. The [employer] makes no representations or warranties, express or implied, including, but not limited to, any implied warranty of merchantability and/or fitness for a particular purpose, with respect to such information and specifically disclaims all such warranties. Users are advised that decisions regarding drug therapy are complex medical decisions requiring the independent, informed decision of an appropriate health health care assistant, and the information is provided for informational purposes only. The entire monograph for a drug should be reviewed for a thorough understanding of the drug's actions, uses and side effects. The [employer] does not endorse or recommend the use of any drug.The information is not a substitute for medical care. AHFS?? Patient Medication Information???. ?? Copyright, 2023. The [employer] of Health-SystemPharmacists??, [address], [address], [place], [place]. All Rights Reserved. Duplication for commercial use must be authorized by [facility]. Selected Revisions: November 01, 2018. AHFS?? Patient Medication Information???. ?? Copyright, 2023 ?? Patient Care team information Care Team Personnel Name: Yaya PEDRAZA, Lena Florian Position: [facility] ASSURANCE SENIOR MANAGER INSURANCE Member Role: Lifetime Consulting Physician Address: [address] [place] [address], [address] Telecom: Name: Sunita PEDRAZA, Eliazar Carrasco Position: [facility] Physician - Primary Care Member Role: PCP Address: [address] [place] [address]- Telecom: Name: Reinier Samayoa RN Position: [facility] RN Member Role: Primary Care Nurse Name: Viral PEDRAZA, Theo Dunbar Position: [facility] Physician (General Medicine) Member Role: Lifetime Consulting Physician Address: [address] [place] [address] [facility] [place] [address]- Telecom: Care Team Related Persons Name: FRANK DREW Name: SHAWN DREW Insurance Providers Guarantor name: JUAN CORBETTSally Health Plan Information #: 1 Payer: HMO BLUE IN NETWORK Member Number: [id number] Policy Number: NA Group Number: [id number] Health Plan Information #: 2 Payer: HMO BLUE IN NETWORK Member Number: [id number] Policy Number: NA Group Number: [id number]
--- OUTSIDE RECORDS SUMMARY | 2024-03-30 11:46 | XMS_ITS | Continuity of Care Document ---
Author Organization [facility] Address [address] [place] [address]- Care Team Providers Care Thermal Engineer Name Role Phone Eliazar Dorsey MD Primary Care Physician Encounter [facility] Date(s): 01/21/24 - 02/29/[address] [address] Attending Physician: Doni Ng MD Admitting Physician: Doni Ng MD Referring Physician: Doni Ng MD Allergies, Adverse Reactions, Alerts Substance Reaction Severity Status amoxicillin Active Keflex 1 Active 1Rash Immunizations Given and Recorded Vaccine Date Status Refusal Reason tetanus/diphtheria/pertussis, acel(Tdap) 07/30/22 Given influenza virus vaccine, inactivated 03/28/22 Viet rded influenza virus vaccine, inactivated 02/03/19 Viet rded influenza virus vaccine, inactivated 01/19/18 Viet rded influenza virus vaccine, inactivated 02/12/17 Viet rded influenza virus vaccine, inactivated 03/10/16 Viet rded influenza virus vaccine, inactivated 06/05/15 Viet rded influenza virus vaccine, inactivated 1 02/17/13 Gi kwame SARS-CoV-2 mRNA (asgptxe-fntn-egdyf) vax 05/30/21 Recorded SARS-CoV-2 (COVID-19) mRNA BNT-162b2 vac 09/03/20 Recorded SARS-CoV-2 (COVID-19) mRNA BNT-162b2 vac 08/13/20 Recorded pneumococcal 23-valent vaccine 01/17/20 Given Meningococcal Conjugate Vaccine 11/11/16 Recorded Hepatitis A Pediatric Vaccine 11/07/14 Recorded influ virus vac, H1N1, inactive(oldterm) 2 11/16/09 Given 1Admin Note: vis given 11/27/09 2Admin Note: #2 H1N1 - vis given Medications Albuterol 2 puffs, 0 Refills, Maintenance, 06/25/15 14:16:51 Start Date: 06/25/15 Status: Ordered Azithromycin 5 Day Dose Pack 250 mg oral tablet 1 pack/packet, By Mouth, Once, # 6 tablet, 0 Refills, Soft Stop, 12/14/23 14:47:00 EDT, Tablet, [id number], Partial fill upon patient request if the prescription is for a schedule II opioid drug., 171.1, cm, 12/14/23 14:36:00 EDT, Height Start Date: 12/14/23 Status: Ordered buPROPion 100 mg oral tablet 1 tablet = 100 mg, By Mouth, Daily, 0 Refills, Maintenance, 01/24/17 8:30:12 Start Date: 01/24/17 Status: Ordered busPIRone 5 mg oral tablet 2.5 mg, 0.5, tablet, By Mouth, 2 times a day, Refills 0, Maintenance, 04/25/19 16:43:00 EST Start Date: 04/25/19 Status: Ordered Ventolin HFA 108 mcg/inh inhalation aerosol with adapter 1 puffs, Inhalation, Every 6 hours, PRN for wheezing, # 8 Gm, 0 Refills, Maintenance, 10/06/23 16:57:00 EDT, Aerosol, [id number], Partial fill upon patient request if the prescription is for a schedule II opioid drug., 171.1, cm, 09/25/23 13:1... Start Date: 10/06/23 Status: Ordered Zithromax 250 mg oral tablet 1 pack/packet, By Mouth, Once, # 6 tablet, 0 Refills, Soft Stop, 09/30/23 10:13:00 EDT, Tablet, [id number], Partial fill upon patient request if the prescription is for a schedule II opioid drug., 171.1, cm, 09/25/23 13:13:00 EDT, Height Start Date: 09/30/23 Status: Ordered Problem List Condition Confirmation Course Effective Dates Status H ealth Status Informant Anxiety Confirmed Active Exercise-induced asthma Confirmed Active Family history of pancreatic cancer 1 Confirmed Active History of cellulitis Confirmed Active Heavy menses Confirmed Active 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 1Dad Social History Social History Type Response Smoking Status Never (less than 100 in lifetime) entered on: 07/29/19 Sex Patient Care team information Care Team Personnel Name: Yaya PEDRAZA, Lena Florian Position: [facility] ROCK MASON MD Member Role: Lifetime Consulting Physician Address: Address: [address] [place] [address], [address] [facility] [place] [address]- Name: Eliazar Dorsey MD Position: [facility] Physician - Primary Care Member Role: PCP Address: Address: [address] [place] [address] [place] [address]- Name: Viral PEDRAZA, Theo Dunbar Position: [facility] Physician (General Medicine) Member Role: Lifetime Consulting Physician Address: Address: [address] [place] [address] [address] [facility], [place] [address]- Name: Doni Ng MD Position: [facility] Physician - Pulm/Critical Care Med Service: Pulmonology Member Role: Referring Physician Address: Address: [address] [place] [address], [address] [facility] [place] [address]- Care Team Related Persons Name: FRANK DREW Address: home [address] [place] [address] Name: SHAWN DREW Address: home [address] [place] [address]
== END 2024-03-26 11:22 | disposition home or self-care (01) ==
PROVIDERS: Emergency Provider Emergency Medicine Emergency Medical Services; PCP Internal Medicine
DX: H66.91 Otitis media, unspecified, right ear (principal); R00.0 Tachycardia, unspecified; H92.01 Otalgia, right ear
CPT/HCPCS: 96372; 99283; 99284; J1885

== ENCOUNTER 2024-03-27 02:05 | Emergency (ER) | payer BC, SELFPAY ==
[2024-03-27 02:16] VITALS: BP 136/82; PULSE 104; RESP 16; TEMP 36.3; O2SAT 100; BMI 22.0
--- NOTE | 2024-03-27 03:43 | ED.EAR ---
HPI - Ear Problem General Chief complaint: Ear Problems Stated complaint: right ear pain Time Seen by Provider: 03/27/24 03:43 Source: patient Mode of arrival: ambulatory Limitations: no limitations History of Present Illness ED Provider: HPI Narrative: Patient has been having pain in the right ear seen here yesterday diagnose as otitis media started on Levaquin comes here as pain is getting worse taking Tylenol/Motrin every 4 hours no fever no ear discharge Related Data Previous Rx's ?Medication ?Instructions ?Recorded doxycycline hyclate 100 mg capsule 100 mg PO BID 7 days #14 caps 12/24/23 prednisone 20 mg tablet 40 mg (2 x 20 mg) PO DAILY 5 days 12/24/23 #10 tabs levofloxacin 500 mg tablet 500 mg PO DAILY #5 tabs 01/01/24 levofloxacin 500 mg tablet 500 mg PO DAILY 5 days #5 tabs 03/26/24 doxycycline hyclate 100 mg tablet 100 mg PO BID #20 tabs 03/27/24 Allergies Allergy/AdvReac Type Severity Reaction Status Date / Time amoxicillin Allergy Unknown stomach Verified 03/27/24 02:18 ache cephalexin [From Keflex] AdvReac Stomach Verified 03/27/24 02:18 Upset Review of Systems Review of Systems: Yes all other systems are reviewed and are negative COUNT INCLUDES THE [facility] Social History Social History Alcohol intake: never Smoked in Last 30 Days: No Use of substances other than those prescribed or required for medical reasons: No Advance Directives: No Do you have a plan to hurt others: No Plan Patient : No Physical Exam Vital Signs: Vital Signs: Last Vital Signs Temp 97.3 F 03/27/24 05:05 Pulse 104 H 03/27/24 05:05 Resp 16 03/27/24 05:05 BP 136/82 03/27/24 05:05 Pulse Ox 100 03/27/24 05:05 O2 Del Method Room Air 03/27/24 05:05 BMI result Body Mass Index 22.0 Appearance: Alert. Oriented X3. No acute distress. ENT: Pharynx normal. Oral Mucosa moist left ear normal tympanic membrane, right tympanic membrane is erythematous and bulging with fluid behind Neck: Normal inspection. Neck supple. CVS: Normal heart rate and rhythm. Pulses normal. Respiratory: No respiratory distress. Equal air entry bilateral, no wheezing/rales/rhonchi Skin: Skin warm and dry. Normal skin color. Normal skin turgor. Extremities: No lower extremity edema. Neuro: Oriented X 3. Medications Administered Discontinued Medications Generic Name Dose Route Start Last Admin Trade Name King PRN Reason Stop Dose Admin Doxycycline Monohydrate 100 mg 03/27/24 04:41 03/27/24 04:53 Doxycycline Monohydrate 100 Mg Capsule PO 03/27/24 04:42 100 mg ONCE ONE Administration Lidocaine HCl 1 appl 03/27/24 03:46 03/27/24 03:58 Lidocaine Hcl 4 % [id number] 4 Ml TOPICAL 03/27/24 03:47 1 appl ONCE ONE Administration Ondansetron HCl 4 mg 03/27/24 04:49 03/27/24 04:53 Ondansetron Odt 4 Mg Tab.Rapdis TRANSLINGU 03/27/24 04:50 4 mg ONCE ONE Administration Oxycodone HCl 10 mg 03/27/24 03:46 03/27/24 03:58 Oxycodone Hcl Immed Release 5 Mg Tablet PO 03/27/24 03:47 10 mg ONCE ONE Administration Medical Decision Making Medical Decision Making MDM Narrative: Patient with right otitis media on Levaquin will add doxycycline for staph coverage advised to follow up with ENT Discharge Plan Discharge Clinical Impression: Otitis media Patient Disposition: Home, Self-Care Instructions: Ear Infection (ED) Additional Instructions: Continue take your med antibiotics Will add doxycycline 1 capsule twice a day for 10 days Follow up with ENT specialist Prescriptions: New doxycycline hyclate 100 mg tablet 100 mg PO BID Qty: 20 0RF No Action doxycycline hyclate 100 mg capsule 100 mg PO BID 7 Days Qty: 14 0RF prednisone 20 mg tablet 40 mg PO DAILY 5 Days Qty: 10 0RF levofloxacin 500 mg tablet 500 mg PO DAILY Qty: 5 0RF levofloxacin 500 mg tablet 500 mg PO DAILY 5 Days Qty: 5 0RF Referrals: Jack Ramirez [Physician] - 1 week Interventions: ED Discharge Assessment Last Done: 03/27/24 05:05 Discharge Date/Time: 03/27/24 05:06 Print Language: Ukrainian
[2024-03-27] MEDS: oxyCODONE HCl Immed Release 5 MG TABLET 10 MG PO (03:58)
[2024-03-27] MEDS: Lidocaine HCl 4 % Laryng-O-Jet 4 ML 1 APPL TOPICAL (03:58)
--- NOTE | 2024-03-27 03:58 | PC.NURSE ---
lidocaine hydrocholoride topical solution given by provider
[2024-03-27] MEDS: Ondansetron ODT 4 MG TAB.RAPDIS TRANSLINGU (04:53)
[2024-03-27] MEDS: Doxycycline Monohydrate 100 MG CAPSULE PO (04:53)
[2024-03-27 05:05] VITALS: BP 136/82; PULSE 104; RESP 16; TEMP 36.3; O2SAT 100
== END 2024-03-27 05:06 | disposition home or self-care (01) ==
PROVIDERS: Emergency Provider Internal Medicine; PCP Internal Medicine
DX: H66.92 Otitis media, unspecified, left ear (principal); H92.01 Otalgia, right ear
CPT/HCPCS: 99283; 99284

== ENCOUNTER 2024-08-05 14:26 | Emergency (ER) | payer BC, SELFPAY ==
[2024-08-05] VITALS (7 sets, daily range): BP systolic 126–143; BP diastolic 74–91; PULSE 67–103; RESP 16–20; TEMP 36.6–36.8; O2SAT 99–100; BMI 21.6
--- NOTE | ~2024-08-05 | CT_ITS ---
CLINICAL HISTORY: MOYA, brain fog neck pain, blurry vision CT Head Without Contrast: Comparison: None Findings: Cortical sulci are symmetric. Basal ganglia are unremarkable. No shift in midline structures. No intraparenchymal bleeding or abnormal extra axial blood fluid collections. Normal pituitary size. Clear paranasal sinuses. Unremarkable orbital structures. No depressed fractures. Impression: Unremarkable CT of the head. CTA HEAD, bolus contrast injection. 3D reconstructions and MPRs: Comparison: None Findings: Right Carotid Siphon: Unremarkable. Right Anterior Cerebral Artery: A1 and A2 segments are unremarkable. There is peripheral cortical enhancement. Right Middle Cerebral Artery: M1 and M2 segments are unremarkable. There is peripheral cortical enhancement. Right Posterior Cerebral Artery: P1 and P2 segments are unremarkable. There is peripheral enhancement. Left Carotid Siphon: Unremarkable. Left Anterior Cerebral Artery: A1 and A2 segments are unremarkable. There is peripheral cortical enhancement. Left Middle Cerebral Artery: M1 and M2 segments are unremarkable. There is peripheral cortical enhancement. Left Posterior Cerebral Artery: P1 and P2 segments are unremarkable. There is peripheral cortical enhancement. Basilar Artery: Normal Venous drainage: Normal Impression: No stenosis. No signs of aneurysm. No signs of arterial venous malformation. CTA Neck, Bolus contrast injection, 3D reconstructions and MPRs: Comparison: None Findings: Soft tissues of the neck are unremarkable. Superior aorta and branch vessels are unremarkable. Right carotid: No stenosis. Right vertebral: No stenosis. Left Carotid: No stenosis. Left Vertebral: No stenosis. Impression: No stenosis. No aneurysm or dissection. This document has been electronically signed by: Miguel Blake MD on 08/05/2024 18:58:32
--- OUTSIDE RECORDS SUMMARY | 2024-08-05 15:11 | XMS_ITS | Encounter Summary ---
Author Organization [facility] Address [address] [place] [address] Phone Care Team Providers Care Home Companion Name Role Phone Charline Chappell ACCOUNT SERVICES COORDINATOR Primary Care Provider Un available Encounter Details Date Type Department Care Team (Late st Contact Info) Description 06/26/2011 Documentation [facility] Family [facility] [address] [place], [place] [phone] Family Medicine, Physician [address] [place] [address] Social History Tobacco Use Types Packs/Day Years Used Date Smoking Tobacco: Never Assessed Comments Unknown Sex and Gender Information Value Date Recorded Sex Assigned at Not on file Legal Sex Female 5:06 PM EDT Gender Identity Not on file Sexual Orientation Not on file documented as of this encounter Plan of Treatment Not on file documented as of this encounter Visit Diagnoses Not on filedocumented in this encounter Care Teams Home Companion Relationship Specialty Start Date End Date Charline Chappell NP PCP - General 11/28/16 documented as of this encounter
--- OUTSIDE RECORDS SUMMARY | 2024-08-05 15:11 | XMS_ITS | Clinical Summary ---
Author Organization [facility] Address [address] [place] [address] Phone Care Team Providers Care Access Service Representative Name Role Phone Charline Chappell CREW BOAT OPERATOR Primary Care Provider Un available Allergies Active Allergy Reactions Criticality Noted Date Comments Amoxicillin Rash Low Medications fluticasone (FLONASE SENSIMIST) 27.5 MCG/SPRAY nasal spray FLONASE SENSIMIST; Nunez one actuation in each nostril daily; 27.5 MCG/ACTUATION ; 11/13/2016; Active 7 Active buPROPion SR 100 MG 12 hr tablet Take 100 mg by mouth once daily. 0 7 Active tretinoin 0.025 % cream USE DIRECTED APPLY EVERY NIGHT A SMALL AMOUNT 4 7 Active mupirocin (BACTROBAN) 2 % creamIndications:F uruncle Apply 3 times daily as directed to infected skin areas. 15 g 7 Active clindamycin 1 % lotion APPLY TO AFFECTED AREAS EVERY MORNING 5 7 Active ketoconazole 2 % cream APPLY TO AFFECTED AREA TWICE A DAY 1 8 Active ALPRAZolam 0.25 MG tablet Take 0.25 mg by mouth once daily. 0 8 Active albuterol HFA 108 (90 Base) MCG/ACT inhalerIndications :Mild intermittent asthma without complication Use 2 puffs with spacer 30 min before exercise, can repeat every 4-6 hrs if needed. 1 Units 8 Active SPRINTEC 28 0.25-35 MG-MCG per tabletIndications: Oral contraceptive pill surveillance TAKE 1 TABLET BY MOUTH EVERY DAY 84 tablet 9 Active Active Problems Problem Noted Date Diagnosed Date Acne vulgaris 01/19/2018 Overview (01/19/2018): Followed by derm: Doing well on a topical antibiotic, on OCPs we Rx No ASE reported, no issues remembering to take the pills Sees derm yearly Would like to stay on OCPs today - needs refilled Assessment & Plan (01/19/2018 6:35 PM EDT): Rx for sprintec refilled, proper use reviewed, continue on topical treatments as recommended by derm and follow up yearly when them as directed, return for follow up with them if sx change or here with additional concerns. Anxiety state 09/04/2011 Overview (01/19/2018): Brittany Hartman - weekly therapy in [place] Will see an associate - Philipp - someone pt has seen for communication therapy, pt has since stopped speech therapy Still sees Dr. Gorge Kyle - still seeing every 3 months, likes him a lot Takes the alprazolam only as needed 1-2x And takes the bupropion at night x 1 daily Assessment & Plan (01/19/2018 6:36 PM EDT): Pt should continue in psych and therapy routine care, follow up here with additional concerns, screens today are negative without any concerning behaviors or issues today. Asthma 06/24/2011 Overview (01/19/2018): Followed by pulminology - who last saw her this summer, asthma has been well controlled, recommended that she continue to use the albuterol as needed prior to activity - pulminology recommended before all activity. They also recommended that she continue to use flonase as recommended daily - pt reports that she does not always use this, currently out but has refills. Assessment & Plan (01/19/2018 6:41 PM EDT): Follow recommendations of pulminology - use flonase daily, albuterol prior to activity, watch for increased symptoms or flairs with activity, hx of CF so needs to make sure that symptoms continue to stay under control, follow up with additional changes or concerns with specialist, or here as needed. 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 Immunizations Immunization Administration Dates Next Due DTaP 5 04/29/2004, 2,2000,07/08,2000 H1N1 02/06/2009 HPV, Quadrivalent 09/07/2012,02/03/2012,09/04/19 12 Hep A, ped/adol 11/07/2014,08/29/2010 Hep B, ped/adol 2000,2000,2000 Hib (PRP-T) 06/09/2001, 1,2000,05/13 IPV 04/29/2004, 2,2000,05/13 Influenza Split 02/02/2012,01/07/2011,03/12/2010 Influenza, injectable, quadr ivalent, preservative free 01/19/2018,02/12/2017,03/10/2016,06/05,02/17/2013 Influenza, injectable, trivalent 009,01/20/2008,01/26/2007,03/26 MMR 04/29/2004,03/10/2001 Meningococcal Conj (Menactra) MCV4P 11/11/2016,0 09/04/2011 Pneumococcal Conjugate 2000,2000, Pneumococcal Polysaccharide 07/28/2008 Tdap 09/04/2011 Varicella 07/28/2008,03/10/2001 Family History Relation Name Status Comments Brother Justyn Alive Brother: Asthma Father Paxton Alive Father: Elevate d cholesterol, Hyperlipidemia, Pancreatic Cancer dx at 52 Maternal Grandfather Materna l uncle: cancer, skin Maternal Grandmother Maternpayton donato grandmother: Diabetes mellitus, cirrhosis/gastro/arthritis Mother Keisha Alive Mother: Alive a nd well, *Thrombophilia, Migraines Other Family history of Heavy Menses, Family history of Thrombophilia Paternal Grandfather Ludmila donato grandfather: Sudden /[place] under age 55, Elevated cholesterol Paternal Grandmother Ludmila donato grandmother: thyroid Social History Tobacco Use Types Packs/Day Years Used Date Smoking Tobacco: Never Smokeless Tobacco: Never Tobacco Cessation:Counseling Given: Yes Comments:Never smoker Alcohol Use Standard Drinks/Week Comments No 0 (1 standard drink = 0.6 oz pur e alcohol) Comments No Sex and Gender Information Value Date Recorded Sex Assigned at Not on file Legal Sex Female 5:06 PM EDT Gender Identity Not on file Sexual Orientation Not on file Last Filed Vital Signs Vital Sign Reading Time Taken Comments Blood Pressure 120/78 01/19/2018 3:39 PM EDT Pulse 71 01/19/2018 2:27 PM EDT Temperature 37 ??C (98.6 ??F) 08/15/2017 11:45 AM EDT Respiratory Rate - - Oxygen Saturation - - Inhaled Oxygen Concentration - - Weight 61.5 kg (135 lb 9.6 oz) 01/19/2018 2:27 P M EDT Height 171.5 cm (5' 7.5 ) 01/19/2018 2:27 PM EDT Body Mass Index 20.92 01/19/2018 2:27 PM EDT Plan of Treatment Health Maintenance Due Date Last Done Comments DTaP,Tdap,and Td Vaccines (7 - Td or Tdap) 09/03/2021 09/04/2011, 04/29/2004, 09/15/2001, Additional history exists Influenza Vaccines (#1) 2023 01/20/20, 02/12/2017, 03/10/2016, Additional history exists COVID-19 Vaccine ( season) 2023 Hepatitis B Vaccines Completed 2000, 2000, 2000 HIB Vaccines Completed 06/09/2001, 08/19, 2000, Additional history exists IPV Vaccines Completed 04/29/2004, 05/22, 2000, Additional history exists MMR Vaccines Completed 04/29/2004, 03/10/2001 Pneumococcal Vaccine Aged Out 07/28/2008, 2000, 2000, Additional history exists No longer eligible based on patient's age to complete this topic Varicella Vaccines Completed 07/28/2008, 03/10/2001 HPV Vaccines Completed 09/07/2012, 01/18, 09/04/2011 Hepatitis A Vaccines Completed 11/07/2014, 08/30/19 11 Meningococcal Vaccine Completed 11/11/2016, 012 Men B Vaccine Aged Out No longer elig ible based on patient's age to complete this topic Procedures * Due to [place] [employer] law, this organization might not be sharing sensitive test results. Procedure Name Priority Date/Time Associated Diagnosis Comments CHLAMYDIA AND GONORRHEA, AMPLIFIED Routine 01/19/2018 2:41 PM EDT Encounter for routine child health examination with abnormal findings from Last 3 Months or Most Recently Relevant to Health Maintenance Results * Due to [place] [employer] law, this organization might not be sharing sensitive test results. * Chlamydia and Gonorrhea, Amplified (01/19/2018 2:41 PM EDT) Chlamydia Trachomatis, DNA Probe NEGATIVE (NEG) [facility] Comment: No Chlamydia Trachomatis RNA detected in this patient's sample ? (REFERENCE RANGE/NORMAL VALUE: NOT DETECTED) ? Note: This test uses wool hat forming machine tender- mediated amplification method to detect rRNA from C. Trachomatis URINE GC AMP PROBE NEGATIVE (NEG) [facility] Comment: No Neisseria Gonorrhoeae RNA detected in this patient's sample ? (REFERENCE RANGE/NORMAL VALUE: NOT DETECTED) ? NOTE: This test uses wool hat forming machine tender-mediated amplification method to detect rRNA from N.Gonorrhoeae. A negative result does not preclude infection. In the case of a negative urine result, testing of an endocervical(female) or urethral (male) specimen is recommended if there is high clinical suspicion of infection. Due to very high sensitivity of Nucleic Acid Amplification Test, false positive results may occur. Therefore, specimen handling is extremely important. In patients in whom the disease is unlikely, additional sample for testing should be considered after an initial positive result. The performance characteristics of this test have not been evaluated in children. The Aptima Combo2 assay is not intended for the evaluation of suspected sexual abuse or for other medico-legal indications. The ordering provider should assess if the patient had consensual sex without risk of sexual abuse. Consult the [facility] if needed. Contact phone number . Therapeutic failure or success cannot be determined with the Aptima Combo2 assay since nucleic acid may persist following appropriate antimicrobial therapy. The Centers for Disease Control and Prevention (CDC) recommends confirmatory retesting using culture or a different nucleic acid amplification test when positive results occur, if indicated. Testing performed or reported by [facility], a Service of [facility], [address] [place] [address] CLIA [id number] Sil Paige MD, Box Printer Urine 01/19/2018 2:41 PM EDT 01/19/2018 11:28 PM EDT us Charline Chappell NP LAB MICROBIOLOGY - GENERA L ORDERABLES Final Result [facility] from Last 3 Months or Most Recently Relevant to Health Maintenance Care Teams Access Service Representative Relationship Specialty Start Date End Date Charline hCappell NP PCP - General 11/28/16
--- OUTSIDE RECORDS SUMMARY | 2024-08-05 15:11 | XMS_ITS | Encounter Summary ---
Author Organization [facility] Address [address] [place] [phone] Phone Care Team Providers Care Processing Supervisor Name Role Phone Charline Chappell ECHOMETER ENGINEER Primary Care Provider Un available Encounter Details Date Type Department Care Team (Late st Contact Info) Description 07/19/2010 Documentation [facility] [address] [place], [place] [phone] Family Medicine, Physician [address] [place] [address] Social History Tobacco Use Types Packs/Day Years [...] on filedocumented in this encounter Care Teams Processing Supervisor Relationship Specialty Start Date End Date Charline Chappell NP PCP - General 11/28/16 documented as of this encounter
--- OUTSIDE RECORDS SUMMARY | 2024-08-05 15:11 | XMS_ITS | Encounter Summary ---
Author Organization [facility] Address [address] [place] [address] Phone Care Team Providers Care Gravel Screener Name Role Phone Charline Chappell PV DESIGN ENGINEER Primary Care Provider Un available Encounter Details Date Type Department Care Team (Late st Contact Info) Description 06/25/2010 Documentation [facility] [address] [place], [place] [phone] Family Medicine, Physician [address] [place] [address] Social History Tobacco Use Types Packs/Day Years [...] on filedocumented in this encounter Care Teams Gravel Screener Relationship Specialty Start Date End Date Charline Chappell NP PCP - General 11/28/16 documented as of this encounter
--- OUTSIDE RECORDS SUMMARY | 2024-08-05 15:11 | XMS_ITS | Encounter Summary ---
Author Organization [facility] Address [address] [place] [address] Phone Care Team Providers Care Mixer Blender Name Role Phone Charline Chappell KARATE TEACHER Primary Care Provider Un available Encounter Details Date Type Department Care Team (Late st Contact Info) Description 07/02/2015 Documentation [facility] [address] [place], [place] [phone] Family Medicine, Physician [address] [place] [address] Social History Tobacco Use Types Packs/Day Years [...] on filedocumented in this encounter Care Teams Mixer Blender Relationship Specialty Start Date End Date Charline Chappell NP PCP - General 11/28/16 documented as of this encounter
--- OUTSIDE RECORDS SUMMARY | 2024-08-05 15:11 | XMS_ITS | Encounter Summary ---
Author Organization [facility] Address [address] [place] [address] Phone Care Team Providers Care Referral Management Liaison Name Role Phone Charline Chappell ADHESION TESTER Primary Care Provider Un available Encounter Details Date Type Department Care Team (Late st Contact Info) Description 11/06/2016 Documentation [facility] [address] [place], [place] [phone] Family Medicine, Physician [address] [place] [address] Social History Tobacco Use Types Packs/Day Years [...] on filedocumented in this encounter Care Teams Referral Management Liaison Relationship Specialty Start Date End Date Charline Chappell NP PCP - General 11/28/16 documented as of this encounter
--- OUTSIDE RECORDS SUMMARY | 2024-08-05 15:11 | XMS_ITS | Encounter Summary ---
Author Organization [facility] Address [address] [place] [address] Phone Care Team Providers Care Informatica Mdm Developer Name Role Phone Charline Chappell HANDMADE TILE ARTIST Primary Care Provider Un available Encounter Details Date Type Department Care Team (Late st Contact Info) Description 10/15/2011 Documentation [facility] Family Medicine [address] [place], [place] [phone] Family Medicine, Physician [address] [place] [address] Social History Tobacco Use Types Packs/Day Years [...] on filedocumented in this encounter Care Teams Informatica Mdm Developer Relationship Specialty Start Date End Date Charline Chappell NP PCP - General 11/28/16 documented as of this encounter
--- OUTSIDE RECORDS SUMMARY | 2024-08-05 15:11 | XMS_ITS | Encounter Summary ---
Author Organization [facility] Address [address] [place] [address] Phone Care Team Providers Care School Bus Monitor Name Role Phone Charline Chappell PICTURE HANGER Primary Care Provider Un available Reason for Visit * Reason Comments Med Refill Encounter Details Date Type Department Care Team (Late st Contact Info) Description 02/04/2019 Refill [facility] [place] [address] [facility] [place] [address] Charline Chappell NP Oral contraceptive pill surveillance Social History Tobacco Use Types Packs/Day Years Used Date Smoking Tobacco: Never Smokeless Tobacco: Never Comments:Never smoker Alcohol Use Standard Drinks/Week Comments No 0 (1 standard drink = 0.6 oz pur e alcohol) Comments No Sex and Gender Information Value Date Recorded Sex Assigned at Not on file Legal Sex Female 5:06 PM EDT Gender Identity Not on file Sexual Orientation Not on file documented as of this encounter Miscellaneous Notes * Telephone Encounter - Chato Wells LPN - 02/04/2019 3:43 PM EDT [facility] requesting [facility]ill on control. Pt is overdue for PE. Left message on for call back to schedule apt for PE. documented in this encounter Plan of Treatment Not on file documented as of this encounter Visit Diagnoses Diagnosis Oral contraceptive pill surveillance documented in this encounter Care Teams School Bus Monitor Relationship Specialty Start Date End Date Charline Chappell NP PCP - General 11/28/16 documented as of this encounter
--- OUTSIDE RECORDS SUMMARY | 2024-08-05 15:11 | XMS_ITS | Encounter Summary ---
Author Organization [facility] Address [address] [place] [phone] Phone Care Team Providers Care Coding Assistant Name Role Phone Charline Chappell TEA TREE FARM WORKER Primary Care Provider Un available Encounter Details Date Type Department Care Team (Late st Contact Info) Description 12/09/2016 Documentation [facility] [address] [place], [place] [phone] Family Medicine, Physician [address] [place] [address] Social History Tobacco Use Types Packs/Day Years Used Date Smoking Tobacco: Never Comments:Never smoker Comments Unknown Sex and Gender Information Value Date Recorded Sex Assigned at Not on file Legal Sex Female 5:06 PM EDT Gender Identity Not on file Sexual Orientation Not on file documented as of this encounter Plan of Treatment Not on file documented as of this encounter Visit Diagnoses Not on filedocumented in this encounter Care Teams Coding Assistant Relationship Specialty Start Date End Date Charline Chappell NP PCP - General 11/28/16 documented as of this encounter
--- OUTSIDE RECORDS SUMMARY | 2024-08-05 15:11 | XMS_ITS | Encounter Summary ---
Author Organization [facility] Address [address] [place] [phone] Phone Care Team Providers Care Park Maintenance Technician Name Role Phone Charline Chappell FLAVORING MACHINE OPERATOR Primary Care Provider Un available Encounter Details Date Type Department Care Team (Late st Contact Info) Description 11/07/2016 Documentation [facility] [address] [place], [place] [phone] Family Medicine, Physician [address] [place] [address] Social History Tobacco Use Types Packs/Day Years [...] on filedocumented in this encounter Care Teams Park Maintenance Technician Relationship Specialty Start Date End Date Charline Chappell NP PCP - General 11/28/16 documented as of this encounter
--- OUTSIDE RECORDS SUMMARY | 2024-08-05 15:11 | XMS_ITS | Encounter Summary ---
Author Organization [facility] Address [address] [place] [phone] Phone Care Team Providers Care Spring Coiling Machine Setter Name Role Phone Charline Chappell GENERAL PARTNER Primary Care Provider Un available Encounter Details Date Type Department Care Team (Late st Contact Info) Description 12/04/2016 Conversion Encounter [facility] - [address] [address] Social History Tobacco Use Types Packs/Day Years [...] on filedocumented in this encounter Care Teams Spring Coiling Machine Setter Relationship Specialty Start Date End Date Charline Chappell NP PCP - General 11/28/16 documented as of this encounter
--- OUTSIDE RECORDS SUMMARY | 2024-08-05 15:11 | XMS_ITS | Encounter Summary ---
Author Organization [facility] Address [address] [place] [phone] Phone Care Team Providers Care Lubricating Engineer Name Role Phone Charline Chappell METAL DRILL OPERATOR Primary Care Provider Un available Encounter Details Date Type Department Care Team (Late st Contact Info) Description 04/28/2011 Documentation [facility] [address] [place], [place] [phone] Family Medicine, Physician [address] [place] [address] Social History Tobacco Use Types Packs/Day Years [...] on filedocumented in this encounter Care Teams Lubricating Engineer Relationship Specialty Start Date End Date Charline Chappell NP PCP - General 11/28/16 documented as of this encounter
--- OUTSIDE RECORDS SUMMARY | 2024-08-05 15:11 | XMS_ITS | Encounter Summary ---
Author Organization [facility] Address [address] [place] [phone] Phone Care Team Providers Care Primary Operator Name Role Phone Charline Chappell EDITOR FARM JOURNAL Primary Care Provider Un available Encounter Details Date Type Department Care Team (Late st Contact Info) Description 11/06/2016 Documentation [facility] [address] [place], [place] [phone] Family Medicine, Physician [address] [place] [address] Social History Tobacco Use Types Packs/Day Years [...] on filedocumented in this encounter Care Teams Primary Operator Relationship Specialty Start Date End Date Charline Chappell NP PCP - General 11/28/16 documented as of this encounter
--- OUTSIDE RECORDS SUMMARY | 2024-08-05 15:11 | XMS_ITS | Encounter Summary ---
Author Organization [facility] Address [address] [place] [phone] Phone Care Team Providers Care Angledozer Operator Name Role Phone Charline Chappell RENTAL REPRESENTATIVE Primary Care Provider Un available Encounter Details Date Type Department Care Team (Late st Contact Info) Description 06/25/2015 Documentation [facility] [address] [place], [place] [phone] Family Medicine, Physician [address] [place] [address] Social History Tobacco Use Types Packs/Day Years [...] on filedocumented in this encounter Care Teams Angledozer Operator Relationship Specialty Start Date End Date Charline Chappell NP PCP - General 11/28/16 documented as of this encounter
--- NOTE | 2024-08-05 15:32 | ED_ITS ---
HPI - Dizziness General Chief Complaint: Dizziness Stated Complaint: dizzy lightheaded Time Seen by Provider: 08/05/24 15:30 Source: patient, RN notes reviewed and old records reviewed Mode of arrival: ambulatory History of Present Illness ED Provider: Rosemary Blankenship PA-C HPI Narrative: 24-year-old female with a past medical history of cystic fibrosis, diagnosed with Mononucleosis in December followed by multiple ear infections completed multiple courses of antibiotics with suspected mastoiditis, presenting to the ED complaining of persistent brain fog since December with associated headaches, lightheadedness/presyncope, neck pain, & blurry vision x months (since Lawrence & otitis diagnoses). Denies fever, chills, nausea, vomiting, numbness, tingling, weakness, CP/SOB. Denies recent head trauma/injury. Related Data Previous Rx's ?Medication ?Instructions ?Recorded doxycycline hyclate 100 mg capsule 100 mg PO BID 7 days #14 caps 12/24/23 prednisone 20 mg tablet 40 mg (2 x 20 mg) PO DAILY 5 days 12/24/23 #10 tabs levofloxacin 500 mg tablet 500 mg PO DAILY #5 tabs 01/01/24 levofloxacin 500 mg tablet 500 mg PO DAILY 5 days #5 tabs 03/26/24 doxycycline hyclate 100 mg tablet 100 mg PO BID #20 tabs 03/27/24 meclizine 25 mg tablet 25 mg PO TID PRN dizziness #15 tabs 08/05/24 Allergies Allergy/AdvReac Type Severity Reaction Status Date / Time amoxicillin Allergy Unknown stomach Verified 08/05/24 14:32 ache cephalexin [From Keflex] AdvReac Stomach Verified 08/05/24 14:32 Upset Review of Systems 2 Review of Systems: Yes all other systems are reviewed and are negative Constitutional: Constitutional: Reports as per HPI Neurologic: Denies Abnormal speech present [facility] Past Medical History Attestation statement: The following information was validated with the patient. Source: old records reviewed Social History Social History Alcohol intake: never Physical Exam 2 Vital Signs: Vital Signs: Last Vital Signs Temp 98.2 F 08/05/24 20:54 Pulse 67 08/05/24 20:54 Resp 16 08/05/24 20:54 BP 137/85 08/05/24 20:54 Pulse Ox 99 08/05/24 20:54 O2 Del Method Room Air 08/05/24 20:54 BMI result Body Mass Index 21.6 Const: General: cooperative, healthy appearing, comfortable, no acute distress, alert and awake Orientation/consciousness: patient oriented x3 L imitations: no limitations HEENT: Head: Yes normal to inspection and Yes atraumatic Ears: hearing grossly normal bilaterally, external ears normal, TM's normal bilaterally and mastoids normal General nose exam: Normal external nose present Face and sinus: Yes normal facial exam Mouth: Normal oral and palatal mucosa present and no drooling Throat: Yes posterior oropharynx normal, Yes tonsils normal, Yes uvula midline, No peritonsillar mass, No uvula laterally displaced and No uvular edema Eyes: General: appearance normal, both eyes and all related structures P upils: Equal, round and reactive pupils present EOM: EOMs intact bilaterally Neck: Neck: Yes normal visual inspection, Yes full ROM, Yes no meningeal signs, Yes supple and No anterior neck swelling Resp: Effort & Inspection: normal respiratory effort and no respiratory distress Auscultation: clear to auscultation bilaterally Cardio: Rate: regular rate Heart sounds: S1 normal heart sound present and S2 normal heart sound present GI: Inspection: Yes normal to inspection Palpation (GI): Soft to palpation, nontender, no guarding and not rigid Skin: Rashes: no rashes Wounds: no wounds Neuro: General: patient oriented x3, gait normal, tone normal, moves all extremities, no meningeal signs, no focal motor deficits and CN's II-XI intact bilaterally Cranial nerves: Yes CN's II-XII intact bilaterally, Yes Equal, round and reactive pupils present and Yes Bilaterally intact EOM present C ognition (Neuro): normal cognition Speech: No Abnormal speech present Gait exam (Neuro): Normal gait present Motor exam (neuro): 5/5 motor strength present throughout and no tremor noted Extrem: General: Yes normal to inspection Course Course Course Narrative: -1747-- labs reassuring, ammonia WNL -UA & negative -orthostatic vital signs negative -1800--ED care transferred to JOHN Randall pending CTA head and neck and dispo per results Reevaluation(s) Reevaluation #1: Patient's head CTA came back normal. Patient is presently asymptomatic. Negative for any neuro deficits. NIH score is 0. Patient's labs are normal. Patient given copy of labs and images and told to follow up with primary care provider, ENT, and Neurology. Patient explained worrisome signs and informed to return to the ED immediately Time: 20:44 Medications Administered Discontinued Medications Generic Name Dose Route Start Last Admin Trade Name King PRN Reason Stop Dose Admin Sodium Chloride 1,000 mls @ 999 mls/hr 08/05/24 16:15 08/05/24 18:06 Ns IV 08/05/24 17:15 Infused .Q1H1M ASHLEY Infusion Iohexol 100 ml 08/05/24 17:53 08/05/24 17:57 Iohexol 350 Mg/Ml 100 Ml Infus..Btl IV 08/05/24 17:54 70 ml ONCE ONE Administration Medical Decision Making Medical Decision Making MDM Narrative: 24-year-old female with a past medical history of cystic fibrosis, diagnosed with Mononucleosis in December followed by multiple ear infections completed multiple courses of antibiotics with suspected mastoiditis, presenting to the ED complaining of persistent brain fog since December with associated headaches, lightheadedness/presyncope, neck pain, & blurry vision x months (since Lawrence & otitis diagnoses). On exam mildly tachycardic, NAD, nontoxic appearing, no focal neuro deficits. TMs and mastoids WNL. Concern for metabolic/infectious etiology vs ?brain mass vs ?CVT. Low suspicion for meningitis/encephalitis, ICH or SAH. Lower suspicion for PE/ACS Plan: EKG, labs, viral testing, UA, orthostatics, CT angio head and neck, IVF, re-evaluate Please refer to course for remaining clinical decision making, interpretation of labs/imaging results, and discussions with consultants and/or family members. Differential Diagnosis Differential Diagnoses: The differential diagnosis associated with the presentation includes As above Admission/Observation Consideration of admission/observation: Escalation of care including admission/observation considered Lab Data [facility] Lab Attestation statement: I reviewed the patient's lab results. 08/05/24 16:42 08/05/24 16:42 Labs: Lab Results 08/05/24 08/05/24 08/05/24 Range/Units 16:42 16:55 17:12 WBC 5.7 (4.8-10.8) X10*3/uL RBC 4.21 (4.20-5.50) X10*6/uL Hgb 12.7 (12.0-16.0) g/dl Hct 37.5 (37.0-47.0) % MCV 89.1 (80.0-98.0) fL MCH 30.2 (27.0-33.0) pg MCHC 33.9 (31.0-35.0) g/dl RDW 12.4 (11.0-16.0) % Plt Count 166 (160-400) X10*3/uL MPV 9.8 (9.4-12.3) fL Immature Gran % (Auto) 0.0 (0.0-0.4) % Neut % (Auto) 47.5 (45-73) % Lymph % (Auto) 42.8 H (20-40) % Lawrence % (Auto) 8.2 (2-11) % Eos % (Auto) 1.0 (0-4) % Baso % (Auto) 0.5 (0-2) % Lymph # (Auto) 2.5 (1.2-4.9) X10*3/uL Lawrence # (Auto) 0.5 (0.1-1.2) X10*3/uL Eos # (Auto) 0.1 (0.0-0.4) X10*3/uL Baso # (Auto) 0.0 (0.0-0.2) X10*3/uL Abs Immat Gran (auto) 0.00 (0.00-0.03) X10*3/uL Absolute Neuts (auto) 2.7 (2.0-8.3) x10*3/uL Absolute Nucleated RBC 0.000 (0.0-0.012) X10*3/uL Nucleated RBC % (auto) 0.0 (0.0-0.2) /100WBC Sodium 140 (135-145) mmol/L Potassium 3.7 (3.3-5.1) mmol/L Chloride 109 H (96-108) mmol/L Carbon Dioxide 25 (22-29) mmol/L Anion Gap 10 L (12-20) BUN 15 (9-16) mg/dL Creatinine 0.72 (0.5-1.4) mg/dL Estim Creat Clear Calc 117.1 Estimated GFR > 60 Random Glucose 80 (60-115) mg/dL Calcium 8.5 (8.4-10.2) mg/dL Magnesium 2.0 (1.6-2.6) mg/dL Total Bilirubin 0.3 (0.0-1.0) mg/dL Direct Bilirubin 0.1 (0.0-0.5) mg/dL AST 21 (5-31) U/L ALT 14 (0-31) U/L Alkaline Phosphatase 40 (39-117) U/L Ammonia 23 (13-55) umol/L Total Protein 6.9 (6.5-8.0) g/dL Albumin 4.3 (3.5-5.0) g/dL TSH 1.16 (0.32-4.0) uIU/mL Urine Color Yellow Urine Appearance Cloudy Urine pH 7.0 (5.0-9.0) Ur Specific [place] 1.025 (1.005-1.025) Urine Protein Negative (Neg-Trace) mg/dL Urine Glucose (UA) Negative (Negative) mg/dL Urine Ketones Trace (Negative) mg/dL Urine Blood Negative (Negative) Urine Nitrite Negative (Negative) Ur Leukocyte Esterase Negative (Negative) Urine Test NEGATIVE (NEGATIVE) Influenza Type A (PCR) NEGATIVE (Negative) Influenza Type B (PCR) NEGATIVE (Negative) RSV RNA Qual (PCR) NEGATIVE (Negative) SARS-CoV-2 RNA (RT-PCR) NEGATIVE (Negative) Independent Interpretation I performed an independent interpretation of an: EKG and CT Scan Radiology Impression Discussion of test interpretation with radiology: I have reviewed the radiologist's reading. Independent Historian Clinical information obtained from an independent historian. History obtained from or confirmed by: Parent External Record Review External record reviewed: Inpatient record, Office record, Outpatient record, Prior outpatient labs, Prior outpatient radiology, Primary care record and Outside ED record Tests considered The following testing was considered but not selected: As above Prescription Management I considered prescription management with: Pain Medication Chronic Conditions Patient?s care impacted by: Other Social Determinants Patient?s care significantly limited by Social Determinants of Health including: Other Social Determinant of Health Discharge Plan Discharge Clinical Impression: Brain fog, Headache, Neck pain Patient Disposition: Home, Self-Care Instructions: Acute Headache (ED), Dizziness (ED), General Headache (ED), Acute Neck Pain (ED) Additional Instructions: You were given copy of your labs and imaging. Recommend follow-up with primary care provider, [facility], and neurologist. Return to the ED immediately for any slurred speech, facial droop, paralysis of extremities, sensation of room spinning/dizziness, loss of vision, headache, inability to walk, abdominal pain, chest pain, shortness of breath, or any other concerning symptoms. Prescriptions: New meclizine 25 mg tablet 25 mg PO TID PRN (Reason: dizziness) Qty: 15 0RF No Action doxycycline hyclate 100 mg capsule 100 mg PO BID 7 Days Qty: 14 0RF prednisone 20 mg tablet 40 mg PO DAILY 5 Days Qty: 10 0RF levofloxacin 500 mg tablet 500 mg PO DAILY Qty: 5 0RF levofloxacin 500 mg tablet 500 mg PO DAILY 5 Days Qty: 5 0RF doxycycline hyclate 100 mg tablet 100 mg PO BID Qty: 20 0RF Referrals: Eliazar Dorsey MD [Primary Care Provider] - (Dizziness, brain fog) Yvtete Carrera MD [Physician] - (Dizziness. Brain fog) Jack Ramirez [Physician] - (Dizziness) Stand Alone Forms: Work/School Release Interventions: ED Discharge Assessment Last Done: 08/05/24 20:54 Discharge Date/Time: 08/05/24 20:54 Print Language: Stateless
--- NOTE | 2024-08-05 16:13 | ECG_ITS ---
Test Reason : LIGHTHEADED Blood Pressure : */* mmHG Vent. Rate : 70 BPM Atrial Rate : 70 BPM P-R Int : 144 ms QRS Dur : 62 ms QT Int : 384 ms P-R-T Axes : 64 72 26 degrees QTcB Int : 414 ms Normal sinus rhythm Nonspecific T wave abnormality Abnormal ECG When compared with ECG of 01-Jan-2024 09:57, No significant change was found Referred By: Rosemary Blankenship Electronically Signed By: COLIN RYAN MD
[2024-08-05] MEDS: 0.9 % Sodium Chloride 1,000 ML 999 ML IV (16:38)
[2024-08-05 16:47] LABS: MANUAL DIFF FLAG NO
[2024-08-05 16:48] LABS: Basophils Percent Auto 0.5 % (0-2); Eosinophils Absolute Auto 0.1 X10*3/uL (0.0-0.4); Hematocrit 37.5 % (37.0-47.0); Hemoglobin 12.7 g/dl (12.0-16.0); Lymphocytes Absolute Auto 2.5 X10*3/uL (1.2-4.9); Lymphocytes Percent Auto 42.8 % (20-40); Mean Corpuscular HGB Conc 33.9 g/dl (31.0-35.0); Mean Corpuscular Hemoglobin 30.2 pg (27.0-33.0); Mean Corpuscular Volume 89.1 fL (80.0-98.0); Mean Platelet Volume 9.8 fL (9.4-12.3); Monocytes Absolute Auto 0.5 X10*3/uL (0.1-1.2); Monocytes Percent Auto 8.2 % (2-11); Neutrophils Absolute Auto 2.7 x10*3/uL (2.0-8.3); Neutrophils Percent Auto 47.5 % (45-73); Platelet Count 166 X10*3/uL (160-400); Red Blood Count 4.21 X10*6/uL (4.20-5.50); Red Cell Distribution Width 12.4 % (11.0-16.0); White Blood Count 5.7 X10*3/uL (4.8-10.8)
[2024-08-05 17:06] LABS: Ammonia 23 umol/L (13-55)
[2024-08-05 17:12] LABS: Alanine Aminotransferase 14 U/L (0-31); Albumin Level 4.3 g/dL (3.5-5.0); Anion Gap 10 (12-20); Aspartate Amino Transferase 21 U/L (5-31); Bilirubin Direct 0.1 mg/dL (0.0-0.5); Bilirubin Total 0.3 mg/dL (0.0-1.0); Blood Urea Nitrogen 15 mg/dL (9-16); Calcium 8.5 mg/dL (8.4-10.2); Carbon Dioxide 25 mmol/L (22-29); Chloride 109 mmol/L (96-108); Creatinine Clr Calc Pharmacy 117.1; Estimated Glomerular Filt Rate > 60; Glucose Random 80 mg/dL (60-115); Potassium 3.7 mmol/L (3.3-5.1); Sodium 140 mmol/L (135-145); Total Protein 6.9 g/dL (6.5-8.0)
[2024-08-05 17:25] LABS: TSH reflex Free T4 1.16 uIU/mL (0.32-4.0)
[2024-08-05 17:28] LABS: Influenza A PCR NEGATIVE (Negative); Influenza B PCR NEGATIVE (Negative); Resp Syncy Virus RNA Qual PCR NEGATIVE (Negative); SARS COV2 PCR INHOUSE NEGATIVE (Negative)
[2024-08-05 17:30] LABS: Appearance Urine Cloudy; Color Urine Yellow; Glucose Urine UA Negative (Negative); Leukocyte Esterase Urine Negative (Negative); Nitrite Urine Negative (Negative); Specific Gravity - Urine 1.025 (1.005-1.025); Urine Blood Negative (Negative); Urine Ketones Trace mg/dL (Negative); Urine Protein Negative (Neg-Trace)
[2024-08-05 17:36] LABS: UPreg QC Valid YES; Urine Pregnancy NEGATIVE (NEGATIVE)
[2024-08-05] MEDS: iohexoL 350 MG/ML 100 ML INFUS..BTL IV (17:57)
[2024-08-05 18:41] LABS: Alkaline Phosphatase 40 U/L (39-117)
== END 2024-08-05 20:54 | disposition home or self-care (01) ==
PROVIDERS: Physician Assistant; Emergency Provider Emergency Medicine Emergency Medical Services; PCP Internal Medicine
DX: R41.840 Attention and concentration deficit (principal); R42 Dizziness and giddiness; M54.2 Cervicalgia; R51.9 Headache, unspecified; Z03.818 Encounter for observation for suspected exposure to other biological agents ruled out; Z14.1 Cystic fibrosis carrier; Z79.899 Other long term (current) drug therapy
CPT/HCPCS: 0241U; 36415; 70496; 70498; 80048; 80076; 81003; 81025; 82140; 83735; 84443; 85025; 93005; 96360; 99284; Q9967

== ENCOUNTER → 2024-08-05 16:13 | Outpatient (BNV) | payer BC, SELFPAY | PROVIDERS: Emergency Provider Emergency Medicine Emergency Medical Services; PCP Internal Medicine; Visit Provider Internal Medicine Cardiovascular Disease | DX: R94.31 Abnormal electrocardiogram [ECG] [EKG] (principal); R42 Dizziness and giddiness | CPT/HCPCS: 93010 ==

== ENCOUNTER → 2024-08-05 16:13 | Outpatient (BNV) | payer BC, SELFPAY | PROVIDERS: Emergency Provider Emergency Medicine Emergency Medical Services; PCP Internal Medicine; Visit Provider Radiology Diagnostic Radiology | DX: R51.9 Headache, unspecified (principal); M54.2 Cervicalgia | CPT/HCPCS: 70496; 70498 ==